=== PATIENT | male | born 1945 | race Caucasian/White ===

== ENCOUNTER → 2016-05-15 | Outpatient (CLI) | payer OTHER, MEDICARE ==
[~2016-05-15] MED LIST: ASCO500T3 PO; CALC-343 PO; CHOL200010 PO; CYAN100020 PO; GLUCTAB7 PO; HYZ/10015 PO; MAGN500C PO; MULT-506 PO; OMEG10007 PO; PRS5 PO; SIMV-151 PO; WARF5TAB90 PO
== END | disposition home or self-care (01) ==
LOC: C.PATHSPEC 17:56
PROVIDERS: ATTEND Urology
DX: C67.9 Malignant neoplasm of bladder, unspecified (principal)

== ENCOUNTER → 2016-05-18 | Outpatient (CLI) | payer OTHER, MEDICARE ==
--- NOTE | 2016-05-18 12:41 | DIAGNOSTIC IMAGING REPORT ---
TWO VIEW CHEST CLINICAL HISTORY: Cough. FINDINGS: PA and lateral chest radiographs are compared to study dated 07/07/2015 and correlated with chest CT dated 07/08/2015. The patient is status post midline sternotomy. The heart is enlarged and there is atherosclerotic calcification of the thoracic aorta. Pericardial pacing leads are noted. Chronic interstitial thickening is unchanged. The lungs and pleural spaces are clear. There is no pneumothorax. The skeletal structures are osteopenic. Degenerative change is noted throughout the thoracic spine. IMPRESSION: Cardiomegaly with no active disease in the chest. Electronically signed by: Noah Granger M.D. 05/18/2016 12:40 PM Dictated Date/Time: 05/18/2016 12:33 PM
== END | disposition home or self-care (01) ==
LOC: C.RAD 12:09
PROVIDERS: ATTEND Family Medicine
DX: R05 Cough (principal)

== ENCOUNTER → 2016-05-25 | Outpatient (CLI) | payer OTHER, MEDICARE ==
[~2016-05-25] MED LIST changes: +OPTIRAY 320 IV PRN
--- NOTE | 2016-05-25 12:06 | DIAGNOSTIC IMAGING REPORT ---
CT ABD/PELVIS COMBO CLINICAL HISTORY: Renal neoplasm. Transitional carcinoma of the bladder. COMPARISON STUDY: Outside CT scan dated 05/20/2014 TECHNIQUE: Unenhanced images were obtained through the abdomen and pelvis. The patient was then scanned in a dynamic helical fashion during intravenous administration 110 cc of Optiray 320. Portal phase and 5 minute delayed images were acquired. CT DOSE: 2273.39 mGy.cm FINDINGS: Lower chest: There is mild bibasilar atelectasis. There is a small hiatal hernia Liver: The contrast-enhanced liver is normal in size, contour, and attenuation. There is no intrahepatic biliary ductal dilatation. The hepatic veins and portal veins are patent. Gallbladder: Cholelithiasis Spleen: Normal in size and attenuation. Pancreas: Unremarkable. Adrenal glands: Unremarkable. Kidneys: There are multiple bilateral nonenhancing renal masses consistent with cysts and hyperdense cysts. The largest is a 35mm mid to upper pole left renal lesion containing rim calcification. This remain similar to the prior 2014 study. No renal calculi are visualized. There is no hydronephrosis. Bowel: There are no transition zones indicate bowel obstruction. There is no evidence of acute diverticulitis. The appendix appears normal. Peritoneum: There is no intraperitoneal free air or abdominal ascites. Vasculature: There are moderately extensive vascular calcifications present. There is no evidence of abdominal aortic aneurysm area Adenopathy: None. Pelvic viscera: There is minimal bladder wall thickening which may in part be secondary to incomplete bladder distention. No collecting system or ureteral filling defects are visualized. Skeletal structures: No destructive osseous lesions are seen. IMPRESSION: 1. Cholelithiasis 2. Multiple bilateral renal masses consistent with cysts and hyperdense cysts 3. Minor bladder wall thickening 4. No evidence of pathologic adenopathy Electronically signed by: Suman Garcia M.D. 05/25/2016 12:04 PM Dictated Date/Time: 05/25/2016 11:57 AM
== END | disposition home or self-care (01) ==
LOC: C.CTS 11:09
PROVIDERS: ATTEND Urology
DX: C67.9 Malignant neoplasm of bladder, unspecified (principal); D49.519 Neoplasm of unspecified behavior of unspecified kidney

== ENCOUNTER 2022-05-30 07:12 | Observation (INO) ==
--- NOTE | 2022-05-30 07:38 | Emergency Department Note ---
Impression & Plan Acute urinary retention, Hematuria, SAADIA (acute kidney injury) ED Provider Note NAME: KSENIA HAUSER AGE: 77 SEX: M : 1945 ARRIVES VIA: Walk-In INFORMANT: Patient, ED PROVIDER(S): Nixon Maldonado DO CHIEF COMPLAINT: Urinary retention HPI: The patient is a 77-year-old male who presented to the emergency department for an evaluation of urinary tension. The patient has had problems off and on with urinary retention and clots in his Cruz catheter. He has been in our facility twice over the last 24 hours for similar complaints. He was able to be irrigated with good urinary flow each time but returns again this morning with similar complaints. His significant other does get part of the history and states that this began after he was diagnosed with urine infection. He also had a Cruz catheter placed for urinary retention and hematuria. The patient does take a blood thinner because he has a mechanical heart valve. He is scheduled for cystoscopy next week. He denies having any fever nausea or vomiting. ROS: See above HPI for pertinent positives & negatives. A total of 10 systems reviewed and were otherwise negative. PAST MEDICAL HISTORY: See Below PAST SURGICAL HISTORY: See Below FAMILY HISTORY: See Below SOCIAL HISTORY: See Below HOME MEDICATIONS: See Below ALLERGIES: See Below VITALS: See Below PHYSICAL EXAMINATION: GENERAL: Patient is awake alert in no acute distress patient is resting comfortably and showing no signs of anxiety EYES: The conjunctivae are clear. The pupils are round and reactive. EARS, NOSE, MOUTH AND THROAT: The nose is without any evidence of any deformity. Mucous membranes are moist. Tongue is midline. NECK: The neck is nontender and supple. RESPIRATORY: Normal respiratory effort is noted there is no evidence of wheezing rhonchi or rales CARDIOVASCULAR: Regular rate and rhythm was noted to auscultation. Metallic click was noted. GASTROINTESTINAL: The abdomen is distended. There is suprapubic tenderness but no guarding or rigidity was appreciated. : Cruz catheter is in urethral meatus. There is no leaking around the catheter. Cruz bag does have hematuria. MUSCULOSKELETAL/EXTREMITIES: There is no evidence of gross deformity full range of motion is noted in the hips and shoulders. SKIN: Pedal edema was noted bilaterally. Skin was warm and dry. NEUROLOGIC: Patient is awake alert and oriented x3 MEDICAL DECISION MAKING: The patient is a 77-year-old male who presented to the emergency department for an evaluation of hematuria and clot retention. This is the third visit the patient has had [facility] over the last 24 hours. The patient was treated with irrigation of the Cruz. This did resolve the clot retention. I discussed the patient's laboratory results with him. I discussed his condition with the on-call urology group. They have agreed to evaluate the pa hugo in the emergency department. The patient was still feeling much better after reevaluation by urology. Given the patient's frequent returns to the emergency department, he was felt to be a better candidate for inpatient management as well as possible cystoscopy within the next few days. Given the patient's anticoagulant use as well as his mechanical valve I discussed his case with the [facility] hospitalist. They have agreed to evaluate the patient for further management and disposition. Triage Nursing notes reviewed. Prior medical records reviewed Vital Signs: reviewed and remarkable for no significant abnormalities Differential diagnosis: Testicular torsion, mass, infection, hernia, hydrocele, epididymitis, STI, trauma, intra-abdominal process, as well as other pathologies. ER treatment provided: See below Diagnostics interpreted by me: ECG: none Cardiac Monitoring: An order was placed for continuous cardiac monitoring. The monitor shows a rate of 69 bpm with sinus rhythm. Laboratory studies: As stated above and show below. Imaging studies: See below. Consultation(s): I discussed this condition with Nicole who [facility]. I discussed this case with Dr. Vazquez who is on-call for the hospitalist. 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 Sister Natural with unknown cause Social History Smoking Status: Former smoker Tobacco Type: Cigarettes Cigarettes Per Day: 1 PPD x 19yr; Second Hand Exposure: No; Hx Alcohol Use: No Hx Substance Use: No Preferred Language: Malawian Communication Ability: Effective Visual Impairment: No Limitations Hearing Ability: Normal Filter Tender Required: No Beliefs That Will Affect Care: None marital status: Current Living Situation: Spouse current occupational status: retired current occupation: [employer] Feels Safe at Home: Yes caffeine: Yes (2 cups/day) during the past year weight has: remained stable Allergies Allergies Allergy/AdvReac Type Severity Reaction Status Date / Time No Known Allergies Allergy Verified 05/29/22 23:00 Home Meds Home Medications Medication Instructions Recorded Confirmed cyanocobalamin (vitamin B-12) 1,000 mcg PO QAM ##0 11/10/14 05/30/22 1,000 mcg tablet multivitamin 1 tab PO QAM ##0 11/10/14 05/30/22 calcium carbonate 600 mg calcium 600 mg PO QAM 02/03/20 05/30/22 (1,500 mg) tablet (Calcium) glucosamine 750 [id number] 1 tab PO BID 02/03/20 05/30/22 no1 644 mg-C 30 mg-galindo 1 mg tablet (Osteo Bi-Flex Triple Strength) diphenhydramine 25 1 tab PO HS 07/15/21 05/30/22 mg-acetaminophen 500 mg tablet (Tylenol PM Extra Strength) losartan 100 mg tablet 100 mg PO QAM 07/15/21 05/30/22 simvastatin 20 mg tablet 20 mg PO HS 07/15/21 05/30/22 amlodipine 2.5 mg tablet 2.5 mg PO HS 08/01/21 05/30/22 docusate sodium 100 mg capsule 100 mg PO BID 01/31/22 05/30/22 (Stool Softener) cholecalciferol (vitamin D3) 125 125 mcg PO QAM 05/24/22 05/30/22 mcg (5,000 unit) tablet (Vitamin D3) hydrochlorothiazide 25 mg tablet 25 mg PO WK 05/24/22 05/30/22 magnesium oxide 500 mg tablet 500 mg PO QAM 05/24/22 05/30/22 warfarin 5 mg tablet See Rx Instructions .Route .COMPLEX 05/24/22 05/30/22 zinc gluconate 50 mg tablet 50 mg PO QAM 05/24/22 05/30/22 Previous Rx's Medication Instructions Recorded cephalexin 500 mg capsule 500 mg PO Q6H 7 days #28 caps 05/24/22 Results & Data (ED) Vital Signs Vital Signs - 24 hr 05/30/22 07:12 05/30/22 08:49 05/30/22 10:32 Temperature 36.1 C L Temperature Source Temporal Artery Scan Pulse Rate 68 Pulse Rate [Finger] 69 71 Respiratory Rate 16 20 20 Respiratory Effort / Characteristics Non-Labored Spontaneous Non-Labored Spontaneous Respiratory Depth Normal Normal Blood Pressure 117/82 Blood Pressure [Right Arm] 112/64 113/68 Blood Pressure Mean 93 Blood Pressure Mean [Right Arm] 80 83 Pulse Oximetry 96 98 98 Oxygen Delivery Method Room Air Room Air Sepsis Recent Fever Within 48 Hours No Sepsis New/Unexplained Change in Mental Status N/A Sepsis Action Taken by Nursing No Action Required 05/30/22 11:40 Temperature Temperature Source Pulse Rate Pulse Rate [Finger] 85 Respiratory Rate 20 Respiratory Effort / Characteristics Non-Labored Spontaneous Respiratory Depth Normal Blood Pressure Blood Pressure [Right Arm] 113/68 Blood Pressure Mean Blood Pressure Mean [Right Arm] 83 Pulse Oximetry 97 Oxygen Delivery Method Room Air Sepsis Recent Fever Within 48 Hours Sepsis New/Unexplained Change in Mental Status Sepsis Action Taken by Assisted Medications Current Medication List: was personally reviewed by me Laboratory Data Attestation: I reviewed the patient's lab results. 05/30/22 07:43 05/30/22 07:43 Lab Results 05/30/22 05/30/22 05/30/22 Range/Units 07:43 07:43 07:43 WBC 6.22 (4.8-10.8) K/ul RBC 3.38 L (4.70-6.10) M/uL Hgb 11.3 L (14.0-18.0) g/dl Hct 32.5 L (42.0-52.0) % MCV 96.2 (80.0-100.0) fL MCH 33.4 (25.0-34.0) pg MCHC 34.8 (32.0-36.0) g/dL RDW Std Deviation 50.7 H (36.4-46.3) fL RDW Coeff of Skye 14.4 (11.5-14.5) % Plt Count 182 (130-400) K/uL MPV 10.3 (9.4-12.4) fL Immature Gran % (Auto) 0.5 % Neut % (Auto) 69.5 % Lymph % (Auto) 11.9 % [place] % (Auto) 12.2 % Eos % (Auto) 5.3 % Baso % (Auto) 0.6 % Neut # (Auto) 4.32 (1.40-6.50) K/uL Lymph # (Auto) 0.74 L (1.2-3.4) K/uL [place] # (Auto) 0.76 H (0.11-0.59) K/uL Eos # (Auto) 0.33 (0-0.50) K/uL Baso # (Auto) 0.04 (0-0.2) K/uL Immature Gran # (Auto) 0.03 (0.01-0.20) K/uL PT 33.5 H (9.0-12.0) Seconds INR 3.4 H (0.9-1.1) APTT 47.0 H* (21.0-31.0) Seconds PTT Ratio 1.7 Sodium 137 (136-145) mmol/L Potassium 4.2 (3.5-5.1) mmol/L Chloride 107 (98-107) mmol/L Carbon Dioxide 26 (21-32) mmol/L Anion Gap 4 (3-11) BUN 25 H (6-23) mg/dl Creatinine 1.98 H (0.6-1.4) mg/dl Est Cr Clr Drug Dosing 32.6 ml/min Est GFR ( Amer) 36.2 ml/min Est GFR (Non-Af Amer) 31.2 ml/min BUN/Creatinine Ratio 12.6 (10-20) Glucose 116 H (70-99(Fasting)) mg/dl Calcium 8.5 L (8.6-10.3) mg/dl Total Bilirubin 0.7 (0.2-1.0) mg/dl AST 17 (13-39) U/L ALT 9 (7-52) U/L Alkaline Phosphatase 47 (34-104) U/L Total Protein 6.3 (6.0-8.3) gm/dl Albumin 4.1 (3.4-5.0) gm/dl Globulin 2.2 L (2.5-4.0) gm/dl Albumin/Globulin Ratio 1.9 (0.9-2) Urine Color Urine Appearance (Clear) Urine pH (4.5-7.5) Ur Specific [place] (1.000-1.030) Urine Protein (Negative) Urine Glucose (UA) (Negative) Urine Ketones (Negative) Urine Blood (Negative) Urine Nitrite (Negative) Urine Bilirubin (Negative) Urine Urobilinogen (Negative) Ur Leukocyte Esterase (Negative) Urine RBC (0-4) /hpf Urine WBC (0-5) /hpf Ur Epithelial Cells (0-5) /lpf Urine Bacteria (Negative) SARS-CoV-2, RNA, NAAT (NEGATIVE) 05/30/22 05/30/22 Range/Units 07:57 10:35 WBC (4.8-10.8) K/ul RBC (4.70-6.10) M/uL Hgb (14.0-18.0) g/dl Hct (42.0-52.0) % MCV (80.0-100.0) fL MCH (25.0-34.0) pg MCHC (32.0-36.0) g/dL RDW Std Deviation (36.4-46.3) fL RDW Coeff of Skye (11.5-14.5) % Plt Count (130-400) K/uL MPV (9.4-12.4) fL Immature Gran % (Auto) % Neut % (Auto) % Lymph % (Auto) % [place] % (Auto) % Eos % (Auto) % Baso % (Auto) % Neut # (Auto) (1.40-6.50) K/uL Lymph # (Auto) (1.2-3.4) K/uL [place] # (Auto) (0.11-0.59) K/uL Eos # (Auto) (0-0.50) K/uL Baso # (Auto) (0-0.2) K/uL Immature Gran # (Auto) (0.01-0.20) K/uL PT (9.0-12.0) Seconds INR (0.9-1.1) APTT (21.0-31.0) Seconds PTT Ratio Sodium (136-145) mmol/L Potassium (3.5-5.1) mmol/L Chloride (98-107) mmol/L Carbon Dioxide (21-32) mmol/L Anion Gap (3-11) BUN (6-23) mg/dl Creatinine (0.6-1.4) mg/dl Est Cr Clr Drug Dosing ml/min Est GFR ( Amer) ml/min Est GFR (Non-Af Amer) ml/min BUN/Creatinine Ratio (10-20) Glucose (70-99(Fasting)) mg/dl Calcium (8.6-10.3) mg/dl Total Bilirubin (0.2-1.0) mg/dl AST (13-39) U/L ALT (7-52) U/L Alkaline Phosphatase (34-104) U/L Total Protein (6.0-8.3) gm/dl Albumin (3.4-5.0) gm/dl Globulin (2.5-4.0) gm/dl Albumin/Globulin Ratio (0.9-2) Urine Color Red Urine Appearance Slightly Cloudy (Clear) Urine pH (4.5-7.5) Ur Specific [place] 1.005 (1.000-1.030) Urine Protein (Negative) Urine Glucose (UA) (Negative) Urine Ketones (Negative) Urine Blood (Negative) Urine Nitrite (Negative) Urine Bilirubin (Negative) Urine Urobilinogen (Negative) Ur Leukocyte Esterase (Negative) Urine RBC >30 H (0-4) /hpf Urine WBC 10-30 H (0-5) /hpf Ur Epithelial Cells 5-10 H (0-5) /lpf Urine Bacteria 1+ H (Negative) SARS-CoV-2, RNA, NAAT NEGATIVE (NEGATIVE) Administered Medications Discontinued Medications Sodium Chloride (Nss 1000ml) 500 mls @ 999 mls/hr IV .Q31M ONE Stop: 05/30/22 10:15 Last Infusion: 05/30/22 11:41 Dose: 0 mls/hr Documented By: Admin: 05/30/22 09:50 Dose: 999 mls/hr Documented By: CORRINA Discharge Plan Visit Data Chief Complaint: Catheter Replacement Stated Complaint: CATHETER LEAKAGE ED Provider: Nixon Maldonado Discharge Problem: Acute urinary retention, Hematuria, SAADIA (acute kidney injury) Patient Disposition: Being Evaluated by Hospitalist Forms Stand Alone Forms: My [facility] [employer] Prescriptions Prescriptions: No Action calcium carbonate [Calcium 600] 600 mg calcium (1,500 mg) tablet 600 mg PO QAM Osteo Bi-Flex Triple Strength 750 mg-644 mg- 30 mg-1 mg tablet 1 tab PO BID Rx Instructions: give with meal/snack multivitamin Tablet 1 tab PO QAM Qty: 0 cyanocobalamin (vitamin B-12) 1,000 mcg Tablet 1,000 mcg PO QAM Qty: 0 warfarin 5 mg tablet See Rx Instructions .ROUTE .COMPLEX Rx Instructions: TAKES 7.5 MG ON FRIDAYS ONLY, THEN 5 MG ALL OTHER EVENINGS. magnesium oxide 500 mg Tablet 500 mg PO QAM zinc gluconate 50 mg Tablet 50 mg PO QAM hydrochlorothiazide 25 mg tablet 25 mg PO WK Rx Instructions: Saturday cholecalciferol (vitamin D3) [Vitamin D3] 125 mcg (5,000 unit) Tablet 125 mcg PO QAM cephalexin 500 mg capsule 500 mg PO Q6H 7 Days Qty: 28 0RF Rx Instructions: STARTED 05/25/22 FOR 7 DAYS. amlodipine 2.5 mg Tablet 2.5 mg PO HS simvastatin 20 mg Tablet 20 mg PO HS diphenhydramine-acetaminophen [Tylenol PM Extra Strength] 25-500 mg Tablet 1 tab PO HS losartan 100 mg Tablet 100 mg PO QAM docusate sodium [Stool Softener] 100 mg capsule 100 mg PO BID Referrals Referrals: Joseph Dolan MD [Primary Care Provider] - Hematuria Qualifiers: Hematuria type: gross Qualified Code(s): R31.0 - Gross hematuria
[2022-05-30 08:17] LABS: Basophils # (auto) 0.04 K/uL (0-0.2); Basophils % (auto) 0.6 %; Eosinophils # (auto) 0.33 K/uL (0-0.50); Eosinophils % (auto) 5.3 %; Hematocrit (blood only) 32.5 % (42.0-52.0); Hemoglobin 11.3 g/dl (14.0-18.0); Immature Granulocytes # (auto) 0.03 K/uL (0.01-0.20); Immature Granulocytes % (auto) 0.5 %; Lymphocytes # (auto) 0.74 K/uL (1.2-3.4); Lymphocytes % (auto) 11.9 %; Mean Corpuscular Hemoglobin 33.4 pg (25.0-34.0); Mean Corpuscular Hgb Conc 34.8 g/dL (32.0-36.0); Mean Corpuscular Volume 96.2 fL (80.0-100.0); Mean Platelet Volume 10.3 fL (9.4-12.4); Monocytes # (auto) 0.76 K/uL (0.11-0.59); Monocytes % (auto) 12.2 %; Neutrophils # (auto) 4.32 K/uL (1.40-6.50); Neutrophils % (auto) 69.5 %; Platelet Count 182 K/uL (130-400); RDW Coefficient of Variation 14.4 % (11.5-14.5); RDW Standard Deviation 50.7 fL (36.4-46.3); Red Blood Count 3.38 M/uL (4.70-6.10); White Blood Count 6.22 K/ul (4.8-10.8)
[2022-05-30 08:25] LABS: Color Urine Red; Specific Gravity Urine 1.005 (1.000-1.030)
[2022-05-30 08:29] LABS: Appearance Urine Slightly Cloudy (Clear)
[2022-05-30 08:33] LABS: Albumin Globulin Ratio 1.9 (0.9-2); Albumin Level 4.1 gm/dl (3.4-5.0); BUN Creatinine Ratio 12.6 (10-20); Bilirubin,Total 0.7 mg/dl (0.2-1.0); Calcium 8.5 mg/dl (8.6-10.3); Creatinine Clr Calc Pharmacy 32.6 ml/min; Est GFR (African American) 36.2 ml/min; Est GFR (Non-African American) 31.2 ml/min; Globulin 2.2 gm/dl (2.5-4.0); Potassium 4.2 mmol/L (3.5-5.1); Total Protein 6.3 gm/dl (6.0-8.3)
[2022-05-30 08:36] LABS: Bacteria Urine 1+ (Negative); RBC Urine >30 /hpf (0-4)
[2022-05-30 09:01] LABS: INR 3.4 (0.9-1.1); Partial Thromboplastin Ratio 1.7; Prothrombin Time 33.5 Seconds (9.0-12.0)
[2022-05-30] MEDS ORDERED: SODIUM CHLORIDE 0.9% 1000ML 500 ML IV ONE (09:45)
--- NOTE | 2022-05-30 10:29 | Urology Consultation ---
Date of Consultation May 30, 2022 Assessment & Plan (1) Hematuria: (2) Acute urinary retention: (3) Malfunction of Cruz catheter: 77 yo M with PMH of bladder cancer with history of BCG and prostate cancer status post radiation who presented to the emergency department multiple times in the past 24 hours due to hematuria and presumed obstruction/malfunction of Cruz catheter. Patient is afebrile and hemodynamically stable. Labs reviewedcreatinine 1.98 (baseline ~1.6), hemoglobin 11.3, no leukocytosis. INR 3.4. UA notable for >30 RBC, 10-30 WBC, 1+ bacteria. UC 05/30 pending. UC 4/ no growth. Cruz catheter is patent and draining appropriately with pink urine at time of visit, no clots in tubing. We discussed his symptoms and Cruz malfunctions could be due to catheter obstruction from clots and/or bladder spasms. Given multiple ER presentations, very reasonable to admit overnight for further evaluation. Case discussed with ER physician and hospitalist. Plan of care reviewed with Dr. Phoenix. No acute intervention indicated today. Will continue to monitor throughout the day/overnight. Hopefully hematuria will continue to clear. Ideally we would wait until scheduled surgical intervention given his anticoagulation status. In the interim, he may need cystoscopy, possible clot evacuation and fulguration tomorrow depending on clinical course. Discussed with patient and spouse. They are understanding and agreeable to the plan, questions answered. Plan: - Recommend BRYAN now due to SAADIA, evaluate for clot retention. - Make NPO at midnight for possible cystoscopy and clot evacuation/fulguration tomorrow afternoon. - Hold Coumadin now in preparation for surgery. Heparin gtt to be initiated per hospital medicine. - Maintain Cruz catheter. - Okay to gently hand irrigate catheter as needed for suprapubic discomfort, clot retention, etc. - Continue supportive care and medical management per hospital medicine. will follow closely. Supervising Physician Co-Signing Physician Notes Discussed patient with GEORGE. Agree with plan. History of Present Illness Reason for Consultation: Hematuria, Cruz malfunction Requesting Physician: Dr. Maldonado History of Present Illness This is a 77-year-old male with past medical history of bladder cancer with history of BCG and prostate cancer status post radiation who presented to the emergency department multiple times in the past 24 hours due to hematuria and presumed obstruction/malfunction of Cruz catheter. Urology is consulted for further evaluation of hematuria/catheter malfunction. Patient is well-known to our service, has followed with Dr. Amor and recently Dr. Phoenix in clinic. He was recently seen in office on 05/28/2022 for scheduled surveillance cystoscopy. Patient reported hematuria and difficulty voiding. Cystoscopy was deferred at visit due to acute issues. A Cruz catheter was placed in office and irrigated. He is scheduled for Cystoscopy, TURBT, possible bilateral retrograde pyelograms, possible Cruz catheter placement in OR on 06/05/[address] Phoenix. Urine culture 05/28/22 showed no growth. He is on Coumadin for history of mechanical valve. Unfortunately, since his office visit he has struggled with multiple issues with Cruz catheter including large leakage around catheter and concern for decreased output into catheter/obstructed catheter, which prompted presentation to ER x 3 in the past 24 hours. Per notes, Cruz catheter was irrigated in emergency department on previous presentations with some clot return and appeared to be well positioned and functioning appropriately, so patient was discharged to home. He returned again this morning with similar complaints. Chart review: Afebrile and hemodynamically stable on arrival Labs reviewed WBC 6.22, hemoglobin 11.3, hematocrit 32.5, INR 3.4, creatinine 1.98. UA notable for >30 RBC, 10-30 WBC, 1+ bacteria; other indices uninterpreted due to color. Urine culture collected and pending. No imaging at time of visit. Patient seen and examined in the emergency department this morning. at bedside. He is awake, alert and resting in litter in no apparent distress. No abdominal, suprapubic or flank discomfort. He reports he did have some bladder pressure previously, which was associated with timing of Cruz malfunction/leaking around catheter. Cruz patent and draining pink urine, no clots noted in tubing at time of visit. He reports occasional chills, no fever. No nausea or vomiting. No additional concerns at this time. Allergies Allergy/AdvReac Type Severity Reaction Status Date / Time No Known Allergies Allergy Verified 05/29/22 23:00 Home Medications Medication Instructions Recorded Confirmed Type cyanocobalamin (vitamin B-12) 1,000 mcg PO QAM ##0 11/10/14 05/30/22 History 1,000 mcg tablet multivitamin 1 tab PO QAM ##0 11/10/14 05/30/22 History calcium carbonate 600 mg calcium 600 mg PO QAM 02/03/20 05/30/22 History (1,500 mg) tablet (Calcium) glucosamine 750 [id number] 1 tab PO BID 02/03/20 05/30/22 History no1 644 mg-C 30 mg-galindo 1 mg tablet (Osteo Bi-Flex Triple Strength) diphenhydramine 25 1 tab PO HS 07/15/21 05/30/22 History mg-acetaminophen 500 mg tablet (Tylenol PM Extra Strength) losartan 100 mg tablet 100 mg PO QAM 07/15/21 05/30/22 History simvastatin 20 mg tablet 20 mg PO HS 07/15/21 05/30/22 History amlodipine 2.5 mg tablet 2.5 mg PO HS 08/01/21 05/30/22 History docusate sodium 100 mg capsule 100 mg PO BID 01/31/22 05/30/22 History (Stool Softener) cephalexin 500 mg capsule 500 mg PO Q6H 7 days #28 caps 05/24/22 05/30/22 Rx cholecalciferol (vitamin D3) 125 125 mcg PO QAM 05/24/22 05/30/22 History mcg (5,000 unit) tablet (Vitamin D3) hydrochlorothiazide 25 mg tablet 12.5 mg PO WK 05/24/22 05/31/22 History magnesium oxide 500 mg tablet 500 mg PO QAM 05/24/22 05/30/22 History warfarin 5 mg tablet See Rx Instructions .Route .COMPLEX 05/24/22 05/30/22 History zinc gluconate 50 mg tablet 50 mg PO QAM 05/24/22 05/30/22 History spironolactone 25 mg tablet 12.5 mg PO Q2D 05/31/22 05/31/22 History Patient History Medical History (Updated 05/31/22 @ 19:49 by Sana Dawson MD) Arthritis Benign prostatic hyperplasia with urinary obstruction and other lower urinary tract symptoms Bilateral primary osteoarthritis of knee Chronic anticoagulation History of bladder surgery History of elevated PSA HTN (hypertension), benign Sialoadenitis of submandibular gland Skin cancer Basal cell per pt 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 Other Information That Helps Us Care for You: No Feels Safe at Home: Yes Safety Concerns: Feels Safe At This Time caffeine: Yes (2 cups/day) during the past year weight has: remained stable Assistive Devices: None Review of Systems Review of Systems: All systems reviewed & are unremarkable except as noted in HPI & below Physical Exam Constitutional: well developed and well nourished; no acute distress and not ill appearing Eyes: no scleral abnormality Respiratory: normal respiratory effort; no respiratory distress and no labored breathing Cardiovascular: Extremities: no pedal edema Gastrointestinal (Abdomen): Inspection/Auscultation: abdomen normal to inspection; abdomen not distended Percussion/Palpation: abdomen soft; abdomen nontender Musculoskeletal: Head/Neck/Chest: normocephalic and head atraumatic Skin: no rashes, warm and dry Neurologic: moves all extremities and awake Psychiatric: Orientation: alert and oriented x 3 Genitourinary: Cruz patent and draining pink urine, no clots noted in tubing at time of visit. Results & Data Vital Signs (Past 12 Hours) Vital Signs Temp Pulse Pulse Resp BP BP Pulse Ox 05/30/22 08:49 69 20 112/64 98 05/30/22 07:12 36.1 C L 68 16 117/82 96 O2 Del Method 05/30/22 08:49 Room Air 05/30/22 07:12 PG Care Time/CCT Total # of Minutes Spent Total Time Spent with Patient: Total time spent is greater than 50% in coordination of care (as documented) at patient's floor/unit and/or counseling patient: Coding Level of Care Code 64320 INT INP/OBS CARE MIN Diagnoses Hematuria R31.0 Hematuria type: gross Acute urinary retention R33.8 Malfunction of Cruz catheter T83.011A (1) Hematuria Hematuria type: gross Qualified Code(s): R31.0 - Gross hematuria
--- NOTE | 2022-05-30 10:59 | History & Physical Report ---
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 Cystoscopy has been delayed due to his hematuria, patient has not been able to reach outpatient cystoscopy due to recurrent ER visits for Hernandez obstruction with clot. Obstructive SAADIA, hematuria, Hernandez malfunction History of acinar adenocarcinoma of the prostate. Prior Michelle 3+3, 3+4, 4+3. Treated with Casodex and Eligard, and radiation. No history of seed implantation. Patient has not had any treatment in the last year and a half per her patient and his . Hernandez placed by urology after visit for hematuria. Patient was initially scheduled for a cystoscopy, however this was delayed due to hematuria. Since placement patient has had 3X ER visits for bladder pressure, clot, and suspected obstruction with leaking urine around the Hernandez but with minimal output into the Hernandez. History of former tobacco use, did have prior service but was stationed in [place] and has never had known toxic/agent orange exposure Creatinine baseline approximately 1.6, acutely elevated to 1.98 on admission suspect obstructive. Renal ultrasound ordered, pending at time of admission Urology consulted. Discussed with urology on admission. No procedure anticipated today, Hernandez is currently draining blood tinged urine. n.p.o. at midnight. INR 3.4 on admission in upper limit of therapeutic range goal 2.5- 3.5, warfarin held x1 and INR trended. Bladder scan every shift BMP pending Irrigate Hernandez as needed Mechanical AVR History of mechanical valve replacement, goal INR 2.53.5. INR on admission 3.4. 1 dose of warfarin held as high therapeutic range and anticipating cystoscopy with hematuria. No chest pain, chest pressure, shortness of breath, leg swelling, or orthopnea MANAGER INTERFACE Patient follows with Dr. Dolan as outpatient, no acute cardiac symptoms at time of admission History of prostate cancer As noted, hematuria and obstructive work-up as noted above Hypertension Blood pressure soft on admission, 113/68 at hospitalist assessment. We will hold losartan tomorrow morning, continue amlodipine. Hold if hypotensive Hyperlipidemia Continue simvastatin DVT prophylaxis: Anticoagulated Disposition: Medical/surgical CODE STATUS: Full code Diet: Heart healthy, n.p.o. midnight (2) Hematuria: (3) Prostate cancer: (4) H/O aortic valve replacement: History of Present Illness Primary Care Provider: Joseph Dolan MD Nakul is a 77-year-old male with a past medical history of bladder cancer, prostate cancer s/p radiation therapy, and indwelling Hernandez who presented for hematuria and Hernandez obstruction. Urology was consulted by ER who have seen patient. As patient has been seen 3 times in the ER, and has had leakage surrounding his catheter with decreased output despite recurrent attempts at catheter irrigation and outpatient follow-up patient has been recommended for inpatient management. Per chart review: History of bladder cancer and prostate cancer. Gross hematuria since 05/23/2022. - Hernandez placed at last urology f/u due to deferred cysto and obstructive sx with hematuria Talent 4+3, history of Casodex and 6 mo Eligard plus radiation therapy - Renal US pending - Urology consulted. Will keep NPO and midnight, coumadin held with temporary heparin. Vitamin K 5mg given. Patient endorses hx of hernandez placement for recurrent urinary obstruction. Hx of bladder cancer and hematuria. Is on anticoagulation 2/2 hx of mechanical heart valve. Was scheduled for a cystoscopy next week; however patient has not been able to remain stable as an outpatient. Pt is seen at bedside with his . He reports last Saturday he developed some discomfort in his bladder and noticed he had a pad with spots of blood on it. Saw Urology Saturday, but evening he had more bleeding and came to the ER for evaluation. Was tx for a UTI, given keflex, had a hernandez flushed, and was dc home without a hernandez. Saw Urology for followup on Saturday of last week. Did not think he had a UTI. Had a cystoscopy scheduled for the follwing saturday, but had continued bleeding and could not perform the cysto. Hernandez catheter was placed instead and cysto was delayed. Hernandez started leaking Saturday night and was seen in the UR Saturday. Was irrigated/flushed and many clots came out and was d/rodrigo home with the hope of making it to outpatient cysto in the following week. Last night patient continued to have leaking and came back to the ER and was flushed again and then dc home. Today patient had some hematuria, but again had leakage around the hernandez and was drinking a lot of water as directed by urine was coming out aroudn the catheter and had some mild abdominal pain with minimal outputinto catheter bag. Patient clarifies is more a strong pressure than pain. Hx of Aortic Valve replacement with [facility] [employer] mechanical AVR Hx of prostate cancer. No seed implantation. S/p radiation. Has not taken casodex in ~1.5 years. Former smoker, quit 1975. smoked for 20 years, ~0.5ppd during that time. Was in the , no agent orange or other known toxin exposure. Was only ever stationed in [place]. Pt reports takes warfarin 5mg daily except Saturday when he takes 7.5mg but is adjusted by coag clinic. Last took yesterday evening. Amlodipine takes at night. Did not take meds this AM. AM: MV, mag, zinc, calcium , VD, B12, stool softener, VC, Bi-Flex, Losartan. PM: Coumadin, simvastatin, amlodipine, VC, Gluco/Chond Allergies Allergy/AdvReac Type Severity Reaction Status Date / Time No Known Allergies Allergy Verified 05/29/22 23:00 Home Medications Medication Instructions Recorded Confirmed Type cyanocobalamin (vitamin B-12) 1,000 mcg PO QAM ##0 11/10/14 05/30/22 History 1,000 mcg tablet multivitamin 1 tab PO QAM ##0 11/10/14 05/30/22 History calcium carbonate 600 mg calcium 600 mg PO QAM 02/03/20 05/30/22 History (1,500 mg) tablet (Calcium) glucosamine 750 [id number] 1 tab PO BID 02/03/20 05/30/22 History no1 644 mg-C 30 mg-galindo 1 mg tablet (Osteo Bi-Flex Triple Strength) diphenhydramine 25 1 tab PO HS 07/15/21 05/30/22 History mg-acetaminophen 500 mg tablet (Tylenol PM Extra Strength) losartan 100 mg tablet 100 mg PO QAM 07/15/21 05/30/22 History simvastatin 20 mg tablet 20 mg PO HS 07/15/21 05/30/22 History amlodipine 2.5 mg tablet 2.5 mg PO HS 08/01/21 05/30/22 History docusate sodium 100 mg capsule 100 mg PO BID 01/31/22 05/30/22 History (Stool Softener) cephalexin 500 mg capsule 500 mg PO Q6H 7 days #28 caps 05/24/22 05/30/22 Rx cholecalciferol (vitamin D3) 125 125 mcg PO QAM 05/24/22 05/30/22 History mcg (5,000 unit) tablet (Vitamin D3) hydrochlorothiazide 25 mg tablet 25 mg PO WK 05/24/22 05/30/22 History magnesium oxide 500 mg tablet 500 mg PO QAM 05/24/22 05/30/22 History warfarin 5 mg tablet See Rx Instructions .Route .COMPLEX 05/24/22 05/30/22 History zinc gluconate 50 mg tablet 50 mg PO QAM 05/24/22 05/30/22 History Past Med/Surg History Medical History Arthritis Benign prostatic hyperplasia with urinary obstruction and other lower urinary tract symptoms Bilateral primary osteoarthritis of knee Chronic anticoagulation History of bladder surgery History of elevated PSA Sialoadenitis of submandibular gland Skin cancer Basal cell per pt 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 NAD. Cooperative. HEENT: Atraumatic, normocephalic. Vision/hearing grossly intact Pulm: CTAB A&P. -wheezes, -rales, -rhonchi. Symmetrical chest rise. No increased work of breathing. No respiratory distress. Cardiac: RRR, +sm. Radial pulses intact and symmetrical. Abdominal: Nontender, nondistended, soft. BS present. : Hernandez in place draining pink-tinged urine Extremities: Warm dry, no edema. Moving all extremities equally. Results & Data Results & Data Vital Signs (Past 12 Hours) Vital Signs Temp Pulse Pulse Resp BP BP Pulse Ox 05/30/22 10:32 71 20 113/68 98 05/30/22 08:49 69 20 112/64 98 05/30/22 07:12 36.1 C L 68 16 117/82 96 O2 Del Method 05/30/22 10:32 Room Air 05/30/22 08:49 Room Air 05/30/22 07:12 PG Care Time/CCT Total # of Minutes Spent Total Time Spent with Patient: Total time spent is greater than 50% in coordination of care (as documented) at patient's floor/unit and/or counseling patient: Coding Level of Care Code 80535 INT INP/OBS CARE 3/75MIN Diagnoses SAADIA (acute kidney injury) N17.9 Hematuria R31.0 Hematuria type: gross Prostate cancer C61 H/O aortic valve replacement Z95.2 (2) Hematuria Hematuria type: gross Qualified Code(s): R31.0 - Gross hematuria
--- NOTE | 2022-05-30 11:53 | Ultrasound Report ---
RENAL ULTRASOUND HISTORY: Acute hematuria hematuria COMPARISON: CT abdomen pelvis 03/25/2018 FINDINGS: Right kidney: 10.2 x 5.3 x 5.4 cm. No hydronephrosis. Diffuse cortical thinning with mildly increased echogenicity of the renal parenchyma. Renal cysts measure up to 2.2 cm. A few of which demonstrate s ubcentimeter marginal calcifications. There are a few calcifications within the right kidney measurin g up to 4 mm. Left kidney: 10.0 x 4.9 x 5.3 cm. No hydronephrosis. Diffuse cortical thinning with increased echogen icity of the renal parenchyma. Cysts of the left kidney measure up to 3.2 cm. No shadowing renal calc marlen identified. Bladder: Cruz catheter noted within a decompressed urinary bladder. IMPRESSION: 1. No hydronephrosis. 2. There are a few subcentimeter calcifications within the right kidney measuring up to 4-5 mm. 3. Bilateral renal cysts. 4. Decompressed urinary bladder with Cruz catheter. ACT 112: Negative or not required by law. Electronically signed by: Agustin Malone M.D. 05/30/2022 11:52 AM
[2022-05-30] MEDS ORDERED: ACETAMINOPHEN 325 MG TAB PO PRN (14:10)
[2022-05-30] MEDS: DOCUSATE SODIUM 100 MG CAP PO SCH (20:57)
[2022-05-30] MEDS: SIMVASTATIN 20 MG TAB PO SCH (20:58)
[2022-05-30] MEDS: amLODIPine BESYLATE 5 MG TAB PO SCH (20:58)
[2022-05-30] MEDS: ACETAMINOPHEN 500 MG TAB PO SCH (20:59)
[2022-05-30] MEDS: diphenhydrAMINE Capsule 25 MG CAP PO SCH (20:59)
[2022-05-30] MEDS ORDERED: ACETAMINOPHEN 500 MG TAB PO SCH (21:00)
--- NOTE | 2022-05-31 07:54 | Urology Progress Note ---
Date of Service May 31, 2022 Assessment & Plan (1) Acute urinary retention: (2) Hematuria: (3) Malfunction of Cruz catheter: Plan: 77 yo M with PMH of bladder cancer with history of BCG and prostate cancer status post radiation who presented to the emergency department multiple times due to hematuria and presumed obstruction/malfunction of Cruz catheter. - Afebrile, hemodynamically stable. - Labs - creatinine 1.72, WBC 5.01, Hgb 11.2, INR 2.9. - UC showing no growth. - Cruz catheter patent and draining light maroon this am. - Required manual irrigation x 1 overnight per patient and nursing notes. - Renal US showed no hydronephrosis, bladder decompressed with Cruz. - Keep NPO for now, will reassess later today. Patient reassessed this afternoon, Cruz draining light mercedes urine, clearer since this am. Patient reports catheter needed irrigation once since this morning. At this point, he feels uncomfortable going home. However, urine appears to be clearing throughout the day and clot evacuation does not appear to be indicated at this time. Will reevaluate in the morning. Okay to resume diet tonight, make NPO at [place]. will follow. Admission and Anticipated Discharge Date Admission Date: May 30, 2022 Supervising Physician Co-Signing Physician Notes Discussed patient with GEORGE. Agree with plan. Personally rounded on patient. Urine is dark mercedes with no persistent bleeding noted. Patient's INR remains elevated at 2.9. Explained to patient that I did not feel taking him to the OR at this time would be worthwhile as his urine is improving. Explained that I took him to the OR and found a tumor, I could not resected at this time as his INR remains elevated. The only indication for surgery today would have been to coagulate any acute bleeding. I still think the best option is to bridge him until his surgery on next Saturday where we could perform all indicated procedures. He expressed understanding but did not feel comfortable going home tonight. He can have a diet tonight and we will reassess in the morning. If hematuria returns we will take to the OR. If it continues to improve, recommended bridging and discharged home with planned surgery next Saturday. Subjective Patient awake, alert and sitting up in bed. No acute issues overnight. Catheter required manual irrigation x1. Patient reports some bladder discomfort and leakage prior to irrigation. Per nursing notes, 1 large clot was returned w ith irrigation. Currently no abdominal, suprapubic or flank discomfort. No nausea or vomiting. No fever or chills. Cruz patent and draining light maroon tinged urine. Review of Systems Constitutional: as per Subjective / HPI Gastrointestinal: as per Subjective / HPI Genitourinary: + as per Subjective / HPI Physical Exam Constitutional: well developed and well nourished; no acute distress Respiratory: normal respiratory effort; no respiratory distress and no labored breathing Gastrointestinal (Abdomen): Inspection/Auscultation: abdomen normal to inspection; abdomen not distended Percussion/Palpation: abdomen soft; abdomen nontender Musculoskeletal: Head/Neck/Chest: normocephalic and head atraumatic Skin: no rashes, warm and dry Neurologic: moves all extremities and awake Psychiatric: Orientation: alert and oriented x 3 Genitourinary: Cruz patent and draining light maroon urine, no clots noted in tubing at time of visit. Results & Data Vital Signs (Past 12 Hours) Vital Signs Temp Pulse Resp BP Pulse Ox O2 Del Method 05/30/22 21:27 36.9 C 84 18 120/72 96 Room Air PG Care Time/CCT Total # of Minutes Spent Total Time Spent with Patient: Total time spent is greater than 50% in coordination of care (as documented) at patient's floor/unit and/or counseling patient: Coding Level of Care Code 27481 SUB INP/OBS CARE /25MIN Diagnoses Acute urinary retention R33.8 Hematuria R31.0 Hematuria type: gross Malfunction of Cruz catheter T83.011A (2) Hematuria Hematuria type: gross Qualified Code(s): R31.0 - Gross hematuria
[2022-05-31 08:06] LABS: Basophils # (auto) 0.05 K/uL (0-0.2); Eosinophils # (auto) 0.37 K/uL (0-0.50); Eosinophils % (auto) 7.4 %; Hematocrit (blood only) 32.6 % (42.0-52.0); Hemoglobin 11.2 g/dl (14.0-18.0); Immature Granulocytes # (auto) 0.03 K/uL (0.01-0.20); Immature Granulocytes % (auto) 0.6 %; Lymphocytes # (auto) 0.84 K/uL (1.2-3.4); Lymphocytes % (auto) 16.8 %; Mean Corpuscular Hemoglobin 33.3 pg (25.0-34.0); Mean Corpuscular Hgb Conc 34.4 g/dL (32.0-36.0); Mean Platelet Volume 9.7 fL (9.4-12.4); Monocytes # (auto) 0.64 K/uL (0.11-0.59); Monocytes % (auto) 12.8 %; Neutrophils # (auto) 3.08 K/uL (1.40-6.50); Neutrophils % (auto) 61.4 %; Platelet Count 187 K/uL (130-400); RDW Coefficient of Variation 14.4 % (11.5-14.5); RDW Standard Deviation 51.5 fL (36.4-46.3); Red Blood Count 3.36 M/uL (4.70-6.10); White Blood Count 5.01 K/ul (4.8-10.8)
[2022-05-31] MEDS: CYANOCOBALAMIN (B-12) 500 MCG TABLET PO SCH (08:08)
[2022-05-31] MEDS: CHOLECALCIFEROL 5,000 UNITS 125 MCG TAB PO SCH (08:08)
[2022-05-31] MEDS: DOCUSATE SODIUM 100 MG CAP PO SCH ×2 (08:08→21:57)
[2022-05-31 08:27] LABS: BUN Creatinine Ratio 13.4 (10-20); C Reactive Protein 1.41 mg/dl (0-0.5); Calcium 8.5 mg/dl (8.6-10.3); Creatinine Clr Calc Pharmacy 37.4 ml/min; Est GFR (African American) 42.9 ml/min
[2022-05-31 08:31] LABS: INR 2.9 (0.9-1.1); Prothrombin Time 29.2 Seconds (9.0-12.0)
[2022-05-31] MEDS ORDERED: LACTATED RINGER'S 1,000 ML IV SCH (10:30)
[2022-05-31 14:36] VITALS: O2SAT 95
--- NOTE | 2022-05-31 15:41 | Anesthesiology Consultation ---
Date of Service May 31, 2022 Assessment & Plan (1) Encounter for pre-operative examination: Chart Review Chart Review: Acceptable Risk for Surgery History Surgery Operation Date: 05/31/22 07:00 Proposed Procedures p Cystoscopy, Possible Clot Evacuation and Fulguration - Antonio Phoenix MD Height/Weight Height: 5 ft 6 in Weight: 94.347 kg Allergies Allergy/AdvReac Type Severity Reaction Status Date / Time No Known Allergies Allergy Verified 05/29/22 23:00 Medications Home Medications Medication Instructions Recorded Confirmed Last Taken cyanocobalamin (vitamin B-12) 1,000 mcg PO QAM ##0 11/10/14 05/30/22 05/29/22 1,000 mcg tablet multivitamin 1 tab PO QAM ##0 11/10/14 05/30/22 05/29/22 calcium carbonate 600 mg calcium 600 mg PO QAM 02/03/20 05/30/22 05/29/22 (1,500 mg) tablet (Calcium) glucosamine 750 [id number] 1 tab PO BID 02/03/20 05/30/22 05/29/22 no1 644 mg-C 30 mg-galindo 1 mg tablet (Osteo Bi-Flex Triple Strength) diphenhydramine 25 1 tab PO HS 07/15/21 05/30/22 05/29/22 mg-acetaminophen 500 mg tablet (Tylenol PM Extra Strength) losartan 100 mg tablet 100 mg PO QAM 07/15/21 05/30/22 05/29/22 simvastatin 20 mg tablet 20 mg PO HS 07/15/21 05/30/22 05/29/22 amlodipine 2.5 mg tablet 2.5 mg PO HS 08/01/21 05/30/22 05/29/22 docusate sodium 100 mg capsule 100 mg PO BID 01/31/22 05/30/22 05/29/22 (Stool Softener) cephalexin 500 mg capsule 500 mg PO Q6H 7 days #28 caps 05/24/22 05/30/22 05/29/22 22:00 cholecalciferol (vitamin D3) 125 125 mcg PO QAM 05/24/22 05/30/22 05/29/22 mcg (5,000 unit) tablet (Vitamin D3) hydrochlorothiazide 25 mg tablet 25 mg PO WK 05/24/22 05/30/22 05/29/22 magnesium oxide 500 mg tablet 500 mg PO QAM 05/24/22 05/30/22 05/29/22 warfarin 5 mg tablet See Rx Instructions .Route .COMPLEX 05/24/22 05/30/22 05/29/22 22:00 5 mg zinc gluconate 50 mg tablet 50 mg PO QAM 05/24/22 05/30/22 05/29/22 Active Medications Generic Name Dose Route Start Last Admin Trade Name [place] PRN Reason Stop Dose Admin Acetaminophen 500 mg 05/30/22 21:00 05/30/22 20:59 Acetaminophen 500 Mg Tab PO 06/29/22 20:59 500 mg HS MEET Administration Amlodipine Besylate 2.5 mg 05/30/22 21:00 05/30/22 20:58 Amlodipine Besylate 5 Mg Tab PO 06/29/22 20:59 2.5 mg HS MEET Administration Cyanocobalamin 1,000 mcg 05/31/22 09:00 05/31/22 08:08 Cyanocobalamin (B-12) 500 Mcg Tablet PO 06/30/22 08:59 1,000 mcg QAM MEET Administration Diphenhydramine HCl 25 mg 05/30/22 21:00 05/30/22 20:59 Diphenhydramine Capsule 25 Mg Cap PO 06/29/22 20:59 25 mg HS MEET Administration Docusate Sodium 100 mg 05/30/22 21:00 05/31/22 08:08 Docusate Sodium 100 Mg Cap PO 06/29/22 20:59 Not Given BID MEET Lactated Ringer's 1,000 mls @ 80 mls/hr 05/31/22 10:30 05/31/22 11:33 Lr IV 06/30/22 10:29 80 mls/hr .[id number] MEET Administration Simvastatin 20 mg 05/30/22 21:00 05/30/22 20:58 Simvastatin 20 Mg Tab PO 06/29/22 20:59 20 mg HS MEET Administration Vitamin D 5,000 units 05/31/22 09:00 05/31/22 08:08 Cholecalciferol 5,000 Units 125 Mcg Tab PO 06/30/22 08:59 5,000 units QAM MEET Administration NPO Date Last Intake of Fluids: 05/31/22 Time Last Intake of Fluids: 08:10 Last Intake of Fluids Comment: sip with pills, Date Last Intake of Solids: 05/30/22 Time Last Intake of Solids: 18:00 Last Intake of Solids Comment: dinner Past Medical History Medical History Arthritis Benign prostatic hyperplasia with urinary obstruction and other lower urinary tract symptoms Bilateral primary osteoarthritis of knee Chronic anticoagulation History of bladder surgery History of elevated PSA Sialoadenitis of submandibular gland Skin cancer Basal cell per pt 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 Sister Natural with unknown cause Past Surgical History Surgical History H/O aortic valve replacement Hx of cataract surgery Bilateral Hx of cystoscopy Social History Smoking Status: Former smoker Smoking cigarettes per day: 1 PPD x 19yr Hx Alcohol Use: Yes Alcohol type: beer and hard liquor alcohol intake frequency: a few times a week Hx Substance Use: No Physical Exam Vital Signs Last Vital Signs Temp 36.8 C 05/31/22 14:34 Pulse 74 05/31/22 14:34 Resp 16 05/31/22 14:34 BP 133/79 05/31/22 14:34 Pulse Ox 95 05/31/22 14:34 O2 Del Method Room Air 05/31/22 14:34 Testing Laboratory Results 05/31/22 07:47 05/31/22 07:47 PT 29.2 Seconds (9.0-12.0) H 05/31/22 07:47 INR 2.9 (0.9-1.1) H 05/31/22 07:47 APTT 47.0 Seconds (21.0-31.0) H* 05/30/22 07:43 Urine Color Red 05/30/22 07:57 Urine Appearance Slightly Cloudy (Clear) 05/30/22 07:57 Urine pH (4.5-7.5) 05/30/22 07:57 Ur Specific [place] 1.005 (1.000-1.030) 05/30/22 07:57 Urine Protein (Negative) 05/30/22 07:57 Urine Glucose (UA) (Negative) 05/30/22 07:57 Urine Ketones (Negative) 05/30/22 07:57 Urine Nitrite (Negative) 05/30/22 07:57 Ur Leukocyte Esterase (Negative) 05/30/22 07:57 Urine RBC >30 /hpf (0-4) H 05/30/22 07:57 Urine WBC 10-30 /hpf (0-5) H 05/30/22 07:57 Ur Epithelial Cells 5-10 /lpf (0-5) H 05/30/22 07:57 05/30/22 07:57 Urine Culture - Preliminary Urine,Straight Cath No growth - Less than 1,000 colonies/mL, Final report to follow.
--- NOTE | 2022-05-31 19:39 | Hospitalist Progress Note ---
Date of Service May 31, 2022 Assessment & Plan (1) Hematuria: Plan: Nakul is a 77-year-old male with a past medical history of hypertension, mechanical aortic valve replacement, hyperlipidemia, and both bladder and prostate CA s/p chemo and radiation therapy who presents for recurrent hematuria with 3x Cruz obstructions and SAADIA. Cystoscopy has been delayed due to his hematuria. Obstructive SAADIA, hematuria, Cruz malfunction History of acinar adenocarcinoma of the prostate. Prior Michelle 3+3, 3+4, 4+3. Treated with Casodex and Eligard, and radiation. No history of seed implantation. Patient has not had any treatment in the last year and a half per her patient and his . Also with a h/o bladder CA Cruz placed by urology after visit for hematuria. Patient was initially scheduled for a cystoscopy, however this was delayed due to hematuria. Since placement patient has had 3X ER visits for bladder pressure, clot, and suspected obstruction with leaking urine around the Cruz but with minimal output into the Cruz. -hematuria is clearing up -no evidence of infection on UA and multiple Ur cxs recently -Appreciate Urology consult-no plan for cystoscopy inpatient unless starts having bleeding again--> make NPO again after midnight in case of urgent need for cystoscopy tomorrow -otherwise, plan to hold coumadin, bridge anticoag through the weekend, and do outpt cystoscopy on Saturday as an outpt so able to do bladder biopsy if necessary if has bladder mass (once INR normalized) -follow CBC in AM-stable today -irrigate Cruz as needed (2) SAADIA (acute kidney injury): Plan: Creatinine baseline approximately 1.6, acutely elevated to 1.98 on admission suspect obstructive. Implementation Lead now improve to 1.7 -give 1 L LR Renal ultrasound no hydro, shows med renal dz -discussed CKD stage 3 diagnosis with pt and -they were unaware -Avoid nephrotoxins -renally dose meds when appropriate -follow BMP -ok to restart home aldactone 3x/week, HCTZ on Sat, and losartan (3) H/O aortic valve replacement: Plan: Mechanical AVR History of mechanical valve replacement, goal INR 2.53.5. INR on admission 3.4 and now down to 2.[address] Dolan as outpatient, no acute cardiac symptoms at time of admission -holding coumadin for upcoming cystoscopy -discussed bridging Lovenox plans with [facility] telephone appointment clerk who will obtain plan from the [facility] for me (4) HTN (hypertension), benign: Plan: Blood pressure soft on admission, now normal -restart losartan tomorrow morning, continue amlodipine (5) Hyperlipidemia: Plan: Continue simvastatin (6) Prostate cancer: Plan: History of prostate cancer As noted, hematuria and obstructive work-up as noted above Plan Dispo-continued stay, possible dc to home tomorrow if no further hematuria Admission and Anticipated Discharge Date Admission Date: May 30, 2022 Subjective Pt had clearing of his hematuria earlier in the day. When I saw him the urine in the evening in the Cruz bag was brown in color. Denies CP, SOB, abd pains. at bedside. Reviewed plan. Discussed care with Urology on phone Physical Exam Constitutional: WD/WN, vitals as above Respiratory: normal respiratory effort, lungs clear to auscultation Cardiovascular: Rate/Rhythm: regular rate and regular rhythm Heart Sounds: + click Extremities: + edema (trace ankle edema) Gastrointestinal (Abdomen): normal bowel sounds, soft, nontender, no hepatosplenomegaly Genitourinary: Cruz bag with brown urine Results & Data Results & Data Vital Signs (Past 12 Hours) Vital Signs Temp Pulse Resp BP Pulse Ox O2 Del Method 05/31/22 14:34 36.8 C 74 16 133/79 95 Room Air 05/31/22 07:50 36.8 C 62 16 125/74 94 Room Air Laboratory Results CBC, BMP, INR reviewed PG Care Time/CCT Total # of Minutes Spent Total Time Spent with Patient: Total time spent is greater than 50% in coordination of care (as documented) at patient's floor/unit and/or counseling patient: Coding Level of Care Code 19481 SUB INP/OBS CARE 3/50MIN Diagnoses Hematuria R31.0 Hematuria type: gross SAADIA (acute kidney injury) N17.9 H/O aortic valve replacement Z95.2 HTN (hypertension), benign I10 Hyperlipidemia E78.5 Prostate cancer C61 (1) Hematuria Hematuria type: gross Qualified Code(s): R31.0 - Gross hematuria
[2022-05-31 20:26] VITALS: PULSE 71
[2022-05-31] MEDS: diphenhydrAMINE Capsule 25 MG CAP PO SCH (21:56)
[2022-05-31] MEDS: amLODIPine BESYLATE 5 MG TAB PO SCH (21:56)
[2022-05-31] MEDS: ACETAMINOPHEN 500 MG TAB PO SCH (21:56)
[2022-05-31] MEDS: SIMVASTATIN 20 MG TAB PO SCH (21:57)
[2022-06-01 06:39] LABS: Basophils # (auto) 0.05 K/uL (0-0.2); Basophils % (auto) 0.8 %; Eosinophils # (auto) 0.46 K/uL (0-0.50); Eosinophils % (auto) 7.8 %; Hematocrit (blood only) 32.5 % (42.0-52.0); Hemoglobin 11.2 g/dl (14.0-18.0); Immature Granulocytes # (auto) 0.03 K/uL (0.01-0.20); Immature Granulocytes % (auto) 0.5 %; Lymphocytes # (auto) 0.77 K/uL (1.2-3.4); Lymphocytes % (auto) 13.1 %; Mean Corpuscular Hemoglobin 33.2 pg (25.0-34.0); Mean Corpuscular Hgb Conc 34.5 g/dL (32.0-36.0); Mean Corpuscular Volume 96.4 fL (80.0-100.0); Mean Platelet Volume 9.4 fL (9.4-12.4); Monocytes # (auto) 0.58 K/uL (0.11-0.59); Monocytes % (auto) 9.8 %; Neutrophils # (auto) 4.01 K/uL (1.40-6.50); Platelet Count 187 K/uL (130-400); RDW Coefficient of Variation 14.3 % (11.5-14.5); RDW Standard Deviation 50.2 fL (36.4-46.3); Red Blood Count 3.37 M/uL (4.70-6.10)
[2022-06-01 06:58] LABS: BUN Creatinine Ratio 16.4 (10-20); Calcium 8.6 mg/dl (8.6-10.3); Est GFR (African American) 45.1 ml/min; Est GFR (Non-African American) 38.9 ml/min; Potassium 3.9 mmol/L (3.5-5.1)
[2022-06-01 07:08] LABS: INR 1.9 (0.9-1.1)
[2022-06-01 07:56] VITALS: BP 131/74; TEMP 98.2
--- NOTE | 2022-06-01 08:43 | Urology Progress Note ---
Date of Service June 01, 2022 Assessment & Plan (1) Hematuria: (2) Acute urinary retention: Plan: 77 yo M with PMH of bladder cancer with history of BCG and prostate cancer status post radiation admitted for hematuria and presumed obstruction/malfunction of Cruz catheter. - Afebrile, hemodynamically stable. - Labs reviewed - creatinine trending down (1.65), Hgb stable, no leukocytosis. - Urine remains a light to medium mercedes this am, no clots. - No issues with catheter overnight or this morning. - No acute intervention indicated today. - Okay to have diet and discharge to home from urology standpoint. - Recommend home with Cruz catheter. - Continue with plan for surgery on Saturday as scheduled. - INR 1.9 today. Will need to bridge patient for upcoming procedure - appreciate assistance from hospital medicine. - Expected clinical course reviewed, all questions answered. Admission and Anticipated Discharge Date Admission Date: May 30, 2022 Supervising Physician Co-Signing Physician Notes Discussed patient with GEORGE. Agree with plan. Subjective Patient seen and examined at bedside this morning. No issues overnight. Catheter did not require manual irrigation. Cruz patent and draining medium mercedes urine this morning. He denies pain. No nausea or vomiting. No fever or chills. Review of Systems Constitutional: as per Subjective / HPI Gastrointestinal: as per Subjective / HPI Genitourinary: + as per Subjective / HPI Physical Exam Constitutional: well developed and well nourished; no acute distress Respiratory: normal respiratory effort; no respiratory distress and no labored breathing Gastrointestinal (Abdomen): Inspection/Auscultation: abdomen normal to inspection; abdomen not distended Musculoskeletal: Head/Neck/Chest: normocephalic and head atraumatic Neurologic: moves all extremities and awake Psychiatric: Orientation: alert and oriented x 3 Genitourinary: Cruz patent and draining mercedes urine, no clots noted in tubing at time of visi t. Results & Data Vital Signs (Past 12 Hours) Vital Signs Temp Pulse Resp BP Pulse Ox O2 Del Method 06/01/22 07:54 36.8 C 71 16 131/74 95 Room Air PG Care Time/CCT Total # of Minutes Spent Total Time Spent with Patient: Total time spent is greater than 50% in coordination of care (as documented) at patient's floor/unit and/or counseling patient: Coding Level of Care Code 83374 SUB INP/OBS CARE 03/14MIN Diagnoses Hematuria R31.0 Hematuria type: gross Acute urinary retention R33.8 (1) Hematuria Hematuria type: gross Qualified Code(s): R31.0 - Gross hematuria
[2022-06-01] MEDS ORDERED: SPIRONOLACTONE 12.5 MG TAB PO SCH (09:00)
[2022-06-01] MEDS ORDERED: LOSARTAN POTASSIUM 50 MG TAB PO SCH (09:00)
[2022-06-01] MEDS ORDERED: MAGNESIUM OXIDE 400 MG TAB PO SCH (09:00)
[2022-06-01] MEDS ORDERED: hydroCHLOROthiazide 25 MG TAB PO SCH (09:00)
[2022-06-01] MEDS ORDERED: NON-FORMULARY MEDICATION (Zinc Gluconate 50 mg Tablet) PO SCH (09:00)
[2022-06-01] MEDS: CHOLECALCIFEROL 5,000 UNITS 125 MCG TAB PO SCH (09:01)
[2022-06-01] MEDS: CYANOCOBALAMIN (B-12) 500 MCG TABLET PO SCH (09:01)
[2022-06-01] MEDS: DOCUSATE SODIUM 100 MG CAP PO SCH (09:02)
--- NOTE | 2022-06-01 13:57 | Discharge Summary ---
Date of Service June 01, 2022 Admission HPI Per Admitting Provider Nakul is a 77-year-old male with a past medical history of bladder cancer, prostate cancer s/p radiation therapy, and indwelling Hernandez who presented for hematuria and Hernandez obstruction. Urology was consulted by ER who have seen patient. As patient has been seen 3 times in the ER, and has had leakage surrounding his catheter with decreased output despite recurrent attempts at catheter irrigation and outpatient follow-up patient has been recommended for inpatient management. Per chart review: History of bladder cancer and prostate cancer. Gross hematuria since 05/23/2022. - Hernandez placed at last urology f/u due to deferred cysto and obstructive sx with hematuria [place] 4+3, history of Casodex and 6 mo Eligard plus radiation therapy - Renal US pending - Urology consulted. Will keep NPO and midnight, coumadin held with temporary heparin. Vitamin K 5mg given. Patient endorses hx of hernandez placement for recurrent urinary obstruction. Hx of bladder cancer and hematuria. Is on anticoagulation 2/2 hx of mechanical heart valve. Was scheduled for a cystoscopy next week; however patient has not been able to remain stable as an outpatient. Pt is seen at bedside with his . He reports last Saturday he developed some discomfort in his bladder and noticed he had a pad with spots of blood on it. Saw Urology Saturday, but evening he had more bleeding and came to the ER for evaluation. Was tx for a UTI, given keflex, had a hernandez flushed, and was dc home without a hernandez. Saw Urology for followup on Saturday of last week. Did not think he had a UTI. Had a cystoscopy scheduled for the follwing saturday, but had continued bleeding and could not perform the cysto. Hernandez catheter was placed instead and cysto was delayed. Hernandez started leaking Saturday night and was seen in the UR Saturday. Was irrigated/flushed and many clots came out and was d/rodrigo home with the hope of making it to outpatient cysto in the following week. Last night patient continued to have leaking and came back to the ER and was flushed again and then dc home. Today patient had some hematuria, but again had leakage around the hernandez and was drinking a lot of water as directed by urine was coming out aroudn the catheter and had some mild abdominal pain with minimal outputinto catheter bag. Patient clarifies is more a strong pressure than pain. Hx of Aortic Valve replacement with [employer] mechanical AVR Hx of prostate cancer. No seed implantation. S/p radiation. Has not taken casodex in ~1.5 years. Former smoker, quit 1975. smoked for 20 years, ~0.5ppd during that time. Was in the , no agent orange or other known toxin exposure. Was only ever stationed in [place]. Pt reports takes warfarin 5mg daily except Saturday when he takes 7.5mg but is adjusted by coag clinic. Last took yesterday evening. Amlodipine takes at night. Did not take meds this AM. AM: MV, mag, zinc, calcium , VD, B12, stool softener, VC, Bi-Flex, Losartan. PM: Coumadin, simvastatin, amlodipine, VC, Gluco/Chond Principal Diagnosis SAADIA, Hematuria Discharge Exam Constitutional WD/WN, vitals as above Respiratory normal respiratory effort, lungs clear to auscultation Cardiovascular Rate/Rhythm: regular rate and regular rhythm Heart Sounds: + click Extremities: + edema (trace ankle edema) Gastrointestinal (Abdomen) normal bowel sounds, soft, nontender, no hepatosplenomegaly Genitourinary Hernandez with dark mercedes colored urine, no red blood Discharge Data Allergies Allergy/AdvReac Type Severity Reaction Status Date / Time No Known Allergies Allergy Verified 05/29/22 23:00 Consultations 05/30/22 10:19 Consult Urology Routine 05/30/22 10:50 ED Decision to Admit Stat Procedures Performed Operation Date: 05/31/22 07:00 <No data on this case meets the specified criteria> Ordered Studies 05/30/22 10:19 US renal/blad retro comp Stat Hospital Course (1) Hematuria: Nakul is a 77-year-old male with a past medical history of hypertension, mechanical aortic valve replacement, hyperlipidemia, and both bladder and prostate CA s/p chemo and radiation therapy who presents for recurrent hematuria with 3x Hernandez obstructions and SAADIA. Cystoscopy has been delayed due to his hematuria. Obstructive SAADIA, hematuria, Hernandez malfunction History of acinar adenocarcinoma of the prostate. Prior Michelle 3+3, 3+4, 4+3. Treated with Casodex and Eligard, and radiation. No history of seed i mplantation. Patient has not had any treatment in the last year and a half per her patient and his . Also with a h/o bladder CA Hernandez placed by urology after visit for hematuria. Patient was initially scheduled for a cystoscopy, however this was delayed due to hematuria. Since placement patient has had 3X ER visits for bladder pressure, clot, and suspected obstruction with leaking urine around the Hernandez but with minimal output into the Hernandez. -hematuria is now resolved, with mercedes colored urine in bag on discharge and cleared by Urology for discharge -no evidence of infection on UA and multiple Ur cxs recently -Appreciate Urology consult-no plan for cystoscopy inpatient unless starts having bleeding again-->plan for outpt cystoscopy and possible biopsy on 06/05 - plan to hold coumadin, bridge anticoag through the weekend with Lovenox as per Coumadin CLinic instructions given to patient and do outpt cystoscopy on Saturday so able to do bladder biopsy if necessary if has bladder mass (once INR normalized) -CBC remains stable -irrigate Hernandez as needed at home, provided leg bag and Hernandez care instructions by nursing (2) SAADIA (acute kidney injury): Creatinine baseline approximately 1.6, acutely elevated to 1.98 on admission suspect obstructive. [employer] now improve to 1.6 after Hernandez irrigated and 1L LR given Renal ultrasound no hydro, shows med renal dz -discussed CKD stage 3 diagnosis with pt and -they were unaware -Avoid nephrotoxins -renally dose meds when appropriate -follow BMP as outpt -resumed home aldactone 3x/week, HCTZ on Sat, and losartan (3) H/O aortic valve replacement: Mechanical AVR History of mechanical valve replacement, goal INR 2.53.5. INR on admission 3.4 and now down to 2.[address] Dolan as outpatient, no acute cardiac symptoms at time of admission -holding coumadin for upcoming cystoscopy -discussed bridging Lovenox plans with [facility] who kindly obtained a copy of the plan from the [facility]madin [facility] for me (4) HTN (hypertension), benign: Blood pressure soft on admission, now normal -continue home losartan, amlodipine, aldactone (5) Hyperlipidemia: Continue simvastatin (6) Prostate cancer: History of prostate cancer As noted, hematuria and obstructive work-up as noted above Plan Dispo-dc to home today Total Time Total Time Spent Total Time Spent (In Minutes): 35 min Total Time Includes: Examination of the Patient, Discharge Planning, Medication Reconciliation and Communication With Other Providers (Urology, Cardiology) Discharge Plan Discharge Items Patient Disposition: Home - Self-Care Reason For Visit: SAADIA, HEMATURIA Discharge Diagnosis: Hematuria, Acute kidney injury Condition on Discharge: Good Activity: Resume your previous activity Non-emergency contact: Primary Care Provider and Surgeon Call non-emergency contact if: you have any medication questions and your symptoms worsen Follow-up/Referrals: Joseph Dolan MD [Primary Care Provider] - Antonio Phoenix MD [Physician] - (PATIENT HAS SURGERY SCHEDULED FOR 06/05/[address] PHOENIX.) Diet: Heart Healthy Addtl Attending Provider Instructions: You were admitted with blood in your urine which has now stopped. Please monitor for recurrence of bleeding in your Hernandez catheter bag. Your Coumadin is on HOLD and you will begin using Lovenox injections as directed on your instructions from the Coumadin Clinic. The Coumadin Clinic already called the Lovenox into your pharmacy for you. Follow up with the Urologist on 06/05 as planned for your procedure. If you have any leakage of urine around the catheter or recurrent bleeding, please call the Urology office first. If you can't get a hold of the Urologist over the weekend, please return to the ER. Pending Studies at Discharge: No Stand-Alone Forms: [facility], Smoking Cessation Medications and DC Order Prescriptions: Continued calcium carbonate [Calcium 600] 600 mg calcium (1,500 mg) tablet 600 mg PO QAM Osteo Bi-Flex Triple Strength 750 mg-644 mg- 30 mg-1 mg tablet 1 tab PO BID Rx Instructions: give with meal/snack multivitamin Tablet 1 tab PO QAM Qty: 0 cyanocobalamin (vitamin B-12) 1,000 mcg Tablet 1,000 mcg PO QAM Qty: 0 warfarin 5 mg tablet See Rx Instructions .ROUTE .COMPLEX Rx Instructions: TAKES 7.5 MG ON FRIDAYS ONLY, THEN 5 MG ALL OTHER EVENINGS. magnesium oxide 500 mg Tablet 500 mg PO QAM zinc gluconate 50 mg Tablet 50 mg PO QAM hydrochlorothiazide 25 mg tablet 12.5 mg PO WK Rx Instructions: Saturday cholecalciferol (vitamin D3) [Vitamin D3] 125 mcg (5,000 unit) Tablet 125 mcg PO QAM spironolactone 25 mg tablet 12.5 mg PO Q2D Rx Instructions: Takes on Sat amlodipine 2.5 mg Tablet 2.5 mg PO HS simvastatin 20 mg Tablet 20 mg PO HS diphenhydramine-acetaminophen [Tylenol PM Extra Strength] 25-500 mg Tablet 1 tab PO HS losartan 100 mg Tablet 100 mg PO QAM docusate sodium [Stool Softener] 100 mg capsule 100 mg PO BID Discontinued cephalexin 500 mg capsule 500 mg PO Q6H 7 Days Qty: 28 0RF Rx Instructions: STARTED 05/25/22 FOR 7 DAYS. Discharge Orders: Discharge Order (Routine); Ordered 06/01/22 Ordered By: Sana Dawson Admission Data Admit Date/Time: 05/30/22 11:34 Attending Provider: Sana Dawson Admit Provider: Ajay Marie Primary Care Provider: Joseph Dolan Other Providers: Antonio Phoenix ; Ajay Marie Coding Level of Care Code 24812 INP/OBS DISCH >30 MIN Diagnoses Hematuria R31.0 Hematuria type: gross SAADIA (acute kidney injury) N17.9 H/O aortic valve replacement Z95.2 HTN (hypertension), benign I10 Hyperlipidemia E78.5 Prostate cancer C61
== END 2022-06-01 14:53 | disposition home or self-care (01) ==
LOC: EDINP 07:12 → ED 07:12 → SUATTDRO 11:34 → 3W 14:09

== ENCOUNTER 2023-08-04 06:15 | Observation (INO) ==
--- OUTSIDE RECORDS SUMMARY | 2023-08-04 06:22 | External Medical Summary | Summary of Care ---
Author Name Unknown Organization [facility] Address [address] [facility] [place] [address] Phone [phone] Care Team Providers Care Nat Instructor Name Role Phone Unavailable Primary Care Provider Unavailabl e Reason for Visit * Reason Comments Dosage Adjustment Via Phone (anticoag Cl inic) Encounter Details Date Type Department Care Team (Latest Contact Info) Description 07/24/2023 6:15 AM EDT Anticoagulation [facility], [facility] [address] [place] [address] [place] [address] [place] [id number] [address] [facility] [place] [id number] 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* Allergies No known active allergiesdocumented as of this encounter (statuses as of 07/24/2023) Medications Medication Sig Dispensed Refills Start Date End Date Status MULTIVITAMINS PO CAPS daily 0 12/11/2007 Active OSTEO BI-FLEX ADV TRIPLE ST PO TABS Take by mouth 2 times a day. Active VITAMIN D 1000 UNITS PO CAPS 1 tab daily Active Simvastatin 20 MG Oral Tablet (Zocor)Indications :Dyslipidemia, goal LDL below 70 TAKE 1 TABLET BY MOUTH EVERYDAY AT BEDTIME 90 Tablet 3 08/01/2022 Active Amoxicillin 500 MG Oral Capsule (Amoxil) TAKE 4 CAPSULES BY MOUTH 1 HOUR PRIOR TO APPOINTMENT 07/10/2022 Active Calcium-Magnesium- Zinc 333-133-5 MG Oral Tablet Take by mouth every evening. Active B-12 1000 MCG Oral Capsule Take 1 Capsule by mouth in the morning. Active Docusate Sodium 100 MG Oral Capsule Take 1 Capsule by mouth every evening. Active Glucosamine Chondr 500 Complex Oral Capsule Take 1 Capsule by mouth every evening. Active Tylenol PM Extra Strength 500-25 MG Oral Tablet (diphenhydrAMINE-A PAP (sleep)) Take 1 Tablet by mouth at bedtime. Active amLODIPine Besylate 2.5 MG Oral Tablet (Norvasc)Indicatio ns:HTN, goal below 140/90 TAKE 1 TABLET BY MOUTH EVERY DAY IN THE EVENING 90 Tablet 3 02/22/2023 Active Losartan Potassium 100 MG Oral Tablet (Cozaar)Indication s:First degree AV block,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,HTN, goal below 140/90 TAKE 1 TABLET BY MOUTH EVERY DAY 90 Tablet 3 02/25/2023 Active hydroCHLOROthiazid e 25 MG Oral Tablet (Hydrodiuril)Indic ations: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 TAKE 1 TABLET BY MOUTH 3 TIMES PER WEEK 40 Tablet 3 02/26/2023 Active Additional Information Patient taking differently: 25 mg Oral QWEEK, TAKE 1 TABLET BY MOUTH 3 TIMES PER WEEK, Reported on 04/26/2023 Spironolactone 25 MG Oral Tablet (Aldactone)Indicat ions:HTN, goal below 140/90 TAKE 1/2 TABLET BY MOUTH THREE DAYS PER WEEK. 25 Tablet 3 05/27/2023 Active Warfarin Sodium 5 MG Oral Tablet (Coumadin)Indicati ons: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,penitentiary current use of anticoagulant therapy TAKE 7.5MG ON SATURDAY THEN 5MG ALL OTHER DAYS OF WEEK OR DIRECTED BY ANTICOAGULATION PHARMACIST 102 Tablet 3 06/19/2023 Active documented as of this encounter (statuses as of 07/24/2023) Active Problems Problem Noted Date Diagnosed Date Hx of actinic keratosis 07/16/2018 Syncope 07/10/2015 First degree AV block 07/10/2015 Personal history of malignant neoplasm of skin 0 09/04/2010 Overview: BCC L chest 02/2021, BCC L glabella 03/2020, and R upper arm 02/2020, BCC R upper lateral arm, R amish 02/2013, possible BCC chest - unknown year (Lindy) Dyslipidemia, goal LDL below 70 05/31/2010 BMI 35-39 ISOLATED (SEE ACTUAL BMI) 08/01/2009 Overview: Per Obesity Protocol, #19 penitentiary current use of anticoagulant therapy 1 04/04/2002 Overview: ICD-10 update of inactive term 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 08/27/2001 Overview: [facility] Anticoagulation management encounter 08/27/2001 documented as of this encounter (statuses as of 07/24/2023) Immunizations Name Administration Dates Next Due COVID-19 mRNA, LNP-s, No Pre serve, 2-Dose Series (Moderna) 04/21/2020,03/26/2020 Seasonal Influenza, Split, IIV3, With Preserve, Inj 11/15/2008,12/16/2006 documented as of this encounter Social History Tobacco Use Types Packs/Day Years Used Date Smoking Tobacco: Former Cigarettes Q uit: 1975 Smokeless Tobacco: Never Alcohol Use Standard Drinks/Week Comments Yes 0 (1 standard drink = 0.6 oz pur e alcohol) 2-3 drinks/week Sex and Gender Information Value Date Recorded Sex Assigned at Not on file Gender Identity Not on file Sexual Orientation Not on file Job Start Date Occupation Industry Not on file Not on file Not on file documented as of this encounter Progress Notes * Frederick Cordero CPhT - 07/24/2023 9:34 AM EDT Contacts Type Contact Phone/Fax 07/24/2023 09:32 AM EDT Phone (Outgoing) Nakul Bradford (Self) [phone] (M) Spoke to Patient Subjective Patient Findings Negatives: Signs/symptoms of thrombosis, Signs/symptoms of bleeding, Change in health, Change in alcohol use, Change in activity, Upcoming invasive procedure, Missed doses, Extra doses, Change in medications, Change in diet/appetite, Bruising Advised patient to contact Anticoagulation Clinic if any unusual bruising or bleeding, recent illness, changes in medication, or questions/concerns. PT/INR results, Coumadin dose instructions, and next PT/INR date communicated as noted by Pharmacist: Yes Frederick Cordero CPhT 07/24/2023, 9:34 AM * Temi Chand RPh - 07/24/2023 8:38 AM EDT Coumadin Clinic (region specific) Objective Current Warfarin Dose As of 07/24/2023 Warfarin maintenance plan: 5 mg (5 mg x 1) every day INR Result As of 07/24/2023 INR goal: 2.5-3.5 INR used for dosin.2 (07/23/2023) Assessment & Plan Warfarin Plan As of 07/24/2023 Full warfarin instructions: 5 mg every day No change documented: Temi Chand tiara Next INR check: 08/13/2023 Repeat PT/INR in 3 week(s) Weekly dose: not changed Additional Dosing Information: Description Siria Soto to contact patient with dose instructions as noted. Temi Chand RPh 07/24/2023, 8:38 AM documented in this encounter Plan of Treatment Upcoming Encounters Date Type Department Care Team (Late st Contact Info) Description 07/30/2023 1:30 PM EDT Cardiac Studies [facility] [address] [facility] [address] 11/07/2023 11:00 AM EDT Office Visit Cardiology, [facility] [address] [facility] [place] [address] Evonne Alvarado CRNP [address] [facility] [place] [id number] 08/17/2024 8:15 AM EDT Office Visit Dermatology [facility] [place] [address] [place] [address] Jose L Bell MD [address] [place] [address] Scheduled Procedures Name Priority Associated Diagnoses Date/Ti me COLONOSCOPY FLEXIBLE PROXIMAL DIAGNOSTIC Recall History of colon polyps Health Maintenance Due Date Last Done Comments Depression Screening 1957 DTaP,Tdap,and Td Vaccines (1 - Tdap) 1962 Zoster Vaccines (3 of 3) 01/09/2019 11/14/2018, 05/2009 COVID-19 Vaccine (5 - 2022- season) 2022 09/24/2022, 11/10/2021, 04/21/2020, Additional history exists Influenza Vaccine (FLU shot) (Season Ended) 2023 11/30/2018, 11/15/2008, 12/16/2006 Colonoscopy 05/25/2025 05/25/2020, 08/2020, 09/28/2014, Additional history exists RETIRED - COLONOSCOPY-EVERY 5 YRS AGES 18-100 Discontinued 05/25/2020, 05/25/2020, 09/28/2014, Additional history exists Pneumococcal Vaccine: 65+ Years Completed 01/08/2023, 10/11/2019, 10/20/2015 GARDASIL-HPV IMMUNIZATION SERIES Aged Out No longer eligible based on patient's age to complete this topic Hepatitis B Aged Out No longer eligi ble based on patient's age to complete this topic MENINGOCOCCAL (MENACTRA/MENVEO) Aged Out No longer eligible based on patient's age to complete this topic documented as of this encounter Medical Devices Implanted Type Area Bonding Equipment Operator Device Identifier Shelf Expiration Date Model / Serial / Lot Lens Intraoc 20.5 - [id number] - [id number] Implanted:Qty: 1 on 03/19/2019 by Jean Villanueva MD at OR [facility] Left: Eye [employer] 10/19/2023 [id number] / [id number] / Lens Intraoc 21.0 - [id number] - [id number] Implanted:Qty: 1 on 03/31/2019 by Jean Villanueva MD at OR [facility] Right: Eye [employer] 09/18/2023 [id number] / [id number] / [id number] Clip Quick 2.8mm 230cm - [id number] Implanted:Qty: 1 on 05/25/2020 by Keith Olivia MD at ENDOSCOPY [facility] [employer] 08/17/2022 [id number] / documented as of this encounter Visit Diagnoses Diagnosis 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- Primary Heart valve replaced by other means documented in this encounter
--- OUTSIDE RECORDS SUMMARY | 2023-08-04 06:22 | External Medical Summary | Continuity of Care Document ---
Author Name Unknown Organization [address] Address [address] [place] [address] RAMY ASHDOWN, [place] [id number] Care Team Providers Care Diorama Model Maker Name Role Phone Deon Mendez Primary Care Physician [phone] [facility]counter [facility] [id number] Date(s): 07/26/23 - 07/26/[address] [place] [address], [facility] [address] [phone] Encounter Diagnosis Bilateral primary osteoarthritis of knee(Discharge Diagnosis) - 07/26/23 Balance problem(Discharge Diagnosis) - 07/26/23 Discharge Disposition: Home or Self Care Attending Physician: MD Mendez Jesse Referring Physician: MD Mendez Jesse Allergies, Adverse Reactions, Alerts No Known Allergies Immunizations Given and Recorded Vaccine Date Status Refusal Reason SARS COVID Vaccine Unspecified 09/24/22 Recorded SARS COVID Vaccine Unspecified 11/10/21 Recorded SARS-CoV-2 (COVID-19) mRNA-1273 vaccine 1 10/04/20 Recorded SARS-CoV-2 (COVID-19) mRNA-1273 vaccine 2 04/21/20 Recorded SARS-CoV-2 (COVID-19) mRNA-1273 vaccine 3 03/26/20 Recorded influenza virus vaccine, inactivated 11/30/18 Milad rded zoster vaccine, inactivated 11/14/18 Recorded pneumococcal 23-valent vaccine 10/20/15 Given zoster vaccine live 02/21/09 Recorded tetanus/diphtheria/pertuss, acel (Tdap) 02/19/06 R ecorded 1Result Comment: 2020-12-16: Historical information-source unspecified 2Result Comment: 2020-12-16: Historical information-source unspecified 3Result Comment: 2020-12-16: Historical information-source unspecified Medications amLODIPine 2.5 mg oral tablet TAKE 1 TABLET BY MOUTH EVERY DAY IN THE EVENING Start Date: 06/13/22 Status: Ordered chondroitin-glucosamine Start: 03/04/15 12:59:00 PM EST, 1 tab, PO, bid Start Date: 03/04/15 Status: Ordered Colace Start: 11/27/22 10:29:00 AM EDT Start Date: 11/27/22 Status: Ordered hydroCHLOROthiazide 25 mg oral tablet TAKE 1/2 TABLET BY MOUTH ONCE A WEEK ON SATURDAY Start Date: 06/13/22 Status: Ordered losartan 50 mg oral tablet Start: 05/04/14 3:28:00 PM EDT, 1 tab, PO, Daily Start Date: 05/04/14 Status: Ordered multivitamin Start: 05/04/14 3:32:00 PM EDT, 1 tab, PO, Daily Start Date: 05/04/14 Status: Ordered omega-3 polyunsaturated fatty acids 1000 mg oral capsule Start: 05/04/14 3:30:00 PM EDT, 2 cap, PO, Daily Start Date: 05/04/14 Status: Ordered simvastatin Start: 05/04/14 3:27:00 PM EDT, 20 mg =, PO, qhs Start Date: 05/04/14 Status: Ordered spironolactone 25 mg oral tablet TAKE 1/2 TABLET BY MOUTH THREE DAYS PER WEEK (M,W,F). Start Date: 06/13/22 Status: Ordered Vitamin B12 1000 mcg oral tablet Start: 05/04/14 3:31:00 PM EDT, 1 tab, PO, Daily Start Date: 05/04/14 Status: Ordered Vitamin D3 Start: 11/27/22 10:29:00 AM EDT Start Date: 11/27/22 Status: Ordered warfarin 5 mg oral tablet Start: 05/04/14 3:27:00 PM EDT, 1 tab, PO, Daily Start Date: 05/04/14 Status: Ordered Mental Status 07/26/23 Barriers to Learning one year None evide nt Mandatory Health Literacy Documentation Yes Health Literacy Communication Barriers N ever Primary Language Khmer Problem List Condition Confirmation Course Effective Dates Status H ealth Status Informant Adenomatous polyp of colon Confirmed Active Lymphadenopathy of right cervical region Confirmed Active S/P AVR (aortic valve replacement) Confirmed Active Hx of bladder cancer Confirmed Active Lymphadenopathy Confirmed Active Mass in neck Confirmed Active Submandibular sialoadenitis Confirmed Active Submandibular sialolithiasis Confirmed Active Urinary urgency Confirmed Active Weight disorder Confirmed Active Diagnosis Diagnosis Type Effective Dates Health Status Clinical Service Informant Bilateral primary osteoarthritis of knee Discharge Diagnosis 07/26/23 Non-Specified Balance problem Discharge Diagnosis 07/26/23 Non-Specified Procedures Procedure Date Related Diagnosis Body Site Status Cystoscope 1 06/05/22 Completed Colonoscopy 2 05/25/20 Completed Examination of eye 3 07/24/19 Comp leted Doppler right lower extremity 07/15/15 Completed MRA of the intracranial circ ullation without contrast 07/08/15 Completed MRI of the brain combo 07/08/15 Co mpleted chest 07/07/[address] of yead without contrast 07/07/15 Completed Angiogramof the neck combo 03/09/15 Completed Excision of submandibular gland 4 03/06/15 Completed MRI 5 11/30/14 Completed CXR - Chest X-ray 6 11/19/14 Compl eted Chest x-ray 7 11/10/14 Completed Colonoscopy 8 09/28/14 Completed Bladder 9 Completed Colonoscopy 10 Completed Heart 11 Completed 1Cystoscopy, Bilateral retrograde pyelograms with radiographic interpretation. 2IMPRESSION: 1) The examined portion of the ileum was normal 2) One 5mm polyp in the ascending colon, removed with a cold snare. Resected and retrieved. Clip was placed 3) Diverticulosis in the sigmoid colon 4) Internal hemorrhoids 5) The examination was otherwise normal on direct and retroflexion views 3IMPRESSION: Mild primary open-angle glaucoma which is stable since recent cataract surgery. Follow up in 6 months. 4Right side for acute sialoadenitis 5MRI abdomen combo 6no active disease in the chest 7No acute cardiopulmonary findings. No significant change in appearance of chest. 8Ascending colon, biopsy: Fragments of hyperplastic polyp 9cancer-surgical tx 1994 10done in 2009 11valve surgery in 1993 Vital Signs Most recent to oldest [Reference Range]: 1 Patient Weight 94.5 kg (07/26/23 9:38 AM) Heart Rate 57 bpm (07/26/23 9:38 AM) Respiratory Rate 20 br/min (07/26/23 9:38 AM) Blood Pressure 118/75mmHg (07/26/23 9:38 AM) Social History Social History Type Response Tobacco Former smoker, Cigar ettes 1 Smoking Status Never smoked cigaret bar Sex Male 1Quit in 1975. Smoked approx 1 ppd for 15 years. Patient Care team information Care Team Personnel Name: MD Mendez Jesse Position: Physician Member Role: Primary Care Provider Address: Address: [address] [address] Care Team Related Persons Name: CLEO HAUSER Address: home [address] [place] [address] MAR[place] ALEJANDRA SOLANO [phone]
--- OUTSIDE RECORDS SUMMARY | 2023-08-04 06:22 | External Medical Summary | Summary of Care ---
Author Name Unknown Organization [facility] Address [address] [facility] [place] [address] Phone [phone] Care Team Providers Care Kelp Gatherer Name Role Phone Unavailable Primary Care Provider Unavailabl e Reason for Visit * Reason Comments Outpatient Testing Encounter Details Date Type Department Care Team (Late st Contact Info) Description 07/23/2023 9:50 AM EDT Laboratory Laboratory [facility] [place] [address] [place] [phone] [facility] 200 [facility] [place] [address] 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 Allergies No known active allergiesdocumented as of this encounter (statuses as of 07/23/2023) Medications Medication Sig Dispensed Refills Start Date [...] MG Oral Tablet (Coumadin)Indicati ons: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,correction current use of anticoagulant therapy TAKE 7.5MG ON SATURDAY THEN 5MG ALL OTHER DAYS OF WEEK OR DIRECTED BY ANTICOAGULATION PHARMACIST 102 Tablet 3 06/19/2023 Active documented as of this encounter (statuses as of 07/23/2023) Active Problems Problem Noted Date Diagnosed Date Hx of actinic keratosis 07/16/2018 Syncope 07/10/2015 First degree AV block 07/10/2015 Personal history of malignant neoplasm of skin 0 09/04/2010 Overview: BCC L chest 02/2021, BCC L glabella 03/2020, and R upper arm 02/2020, BCC R upper lateral arm, R evangelical 02/2013, possible BCC chest - unknown year (Lindy) Dyslipidemia, goal LDL below 70 05/31/2010 BMI 35-39 ISOLATED (SEE ACTUAL BMI) 08/01/2009 Overview: Per Obesity Protocol, #19 correction current use of anticoagulant therapy 1 04/04/2002 Overview: ICD-10 update of inactive term 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 08/27/2001 Overview: [facility] Anticoagulation management encounter 08/27/2001 documented as of this encounter (statuses as of 07/23/2023) Immunizations Name Administration Dates Next Due COVID-19 mRNA, LNP-s, No Pre serve, 2-Dose Series (Moderna) 04/21/2020,03/26/2020 Seasonal Influenza, Split, IIV3, With Preserve, Inj 11/15/2008,12/16/2006 documented as of this encounter Social History Tobacco Use Types Packs/Day Years Used Date Smoking Tobacco: Former Cigarettes Q uit: 1976 Smokeless Tobacco: Never Alcohol Use Standard Drinks/Week Comments Yes 0 (1 standard drink = 0.6 oz pur e alcohol) 2-3 drinks/week Sex and Gender Information Value Date Recorded Sex Assigned at Not on file Gender Identity Not on file Sexual Orientation Not on file Job Start Date Occupation Industry Not on file Not on file Not on file documented as of this encounter Plan of Treatment Upcoming Encounters Date Type Department Care Team (Late st Contact Info) Description 07/24/2023 6:15 AM EDT Anticoagulation Centralized Clinical Pharmacy Services, Jennifer Esteban [address] [place] [address] [place] [address] [place] [address] 07/30/2023 1:30 PM EDT Cardiac Studies Cardiac Studies, [facility] 132 [facility] [place] [address] 11/07/2023 11:00 AM EDT Office Visit Cardiology, [facility] 132 [facility] [place] [address] Evonne Alvarado CRNP [address] [place] [address] 08/17/2024 8:15 AM EDT Office Visit Dermatology State Dhara Burrell 200 [facility] [place] [address] Jose L Bell MD 200 [facility] [place] [address] Pending Results Name Type Priority Associated Diagnoses Date /Time PT INR Lab Routine 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 07/23/2023 9:59 AM EDT Scheduled Procedures Name Priority Associated Diagnoses Date/Ti [...] this encounter Medical Devices Implanted Type Area Single Pass Soil Stabilizer Operator Device Identifier Shelf Expiration Date Model / Serial / Lot Lens Intraoc 20.5 - [id number] - [id number] Implanted:Qty: 1 on 03/19/2019 by Jean Villanueva MD at [facility] Left: Eye [employer]OM[employer] 10/19/2023 [id number] / [id number] / Lens Intraoc 21.0 - [id number] - [id number] Implanted:Qty: 1 on 03/31/2019 by Jean Villanueva MD at OR [facility] Right: Eye [employer]CH [employer] LOMB 09/18/2023 [id number] / [id number] / [id number] Clip Quick 2.8mm 230cm - [id number] Implanted:Qty: 1 on 05/25/2020 by Keith Olivia MD at ENDOSCOPY [facility] [employer] 08/17/2022 [id number]-202UR.[id number] / / documented as of this encounter Visit Diagnoses Diagnosis 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 Heart valve replaced by other means documented in this encounter
--- OUTSIDE RECORDS SUMMARY | 2023-08-04 06:22 | External Medical Summary ---
Author Name Unknown Address Unknown Organization K09:[facility] [place] [address] Laboratory Report Ordering Provider Test Date Status NATANAELJONELLE 07/23/2023 09:59:02 Final Standing order for pt/inr. < br/>Please draw pt/inr every 1 to 4 weeks as requested
Results to [facility]

Warfarin Therapy
INR: 2.0-3.0 conventional anticoagulation
INR: 2.5-3.5 high intensity anticoagulation Observation Date Value Abnormality Reference (Units ) Status PT 07/23/2023 09:59:02 33.4 Above high normal 11 .6-15.2 (seconds) Final INR 07/23/2023 09:59:02 3.2 Above high normal 0. 8-1.2 Final Performing Location [facility] [place] [address]
--- OUTSIDE RECORDS SUMMARY | 2023-08-04 06:22 | External Medical Summary | Summary of Care ---
Author Name Unknown Organization [facility] Address [address] [facility] [place] [address] Phone [phone] Care Team Providers Care Chin Strap Sewer Name Role Phone Unavailable Primary Care Provider Unavailabl e Reason for Visit * Reason Comments Outpatient Testing Encounter Details Date Type Department Care Team (Late st Contact Info) Description 07/23/2023 9:50 AM EDT Laboratory Laboratory [facility] [place] [address] [place] [phone] [facility] 200 [facility] [place] [address] 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 Allergies No known [...] MG Oral Tablet (Coumadin)Indicati ons: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,residential current use of anticoagulant therapy TAKE 7.5MG [...] 02/2020, BCC R upper lateral arm, R restorationism 02/2013, possible BCC chest - unknown year (Lindy) Dyslipidemia, goal LDL below 70 05/31/2010 BMI 35-39 ISOLATED (SEE ACTUAL BMI) 08/01/2009 Overview: Per Obesity Protocol, #19 residential current use of anticoagulant therapy 1 04/04/2002 [...] Anticoagulation Centralized Clinical Pharmacy Services, Jennifer Esteban [address] [place] [address] [place] [address] [place] [address] 07/30/2023 1:30 PM EDT Cardiac Studies Cardiac Studies, [facility] 132 [facility] [place] [address] 11/07/2023 11:00 AM EDT Office Visit Cardiology, [facility] 132 [facility] [place] [address] Evonne Alvarado CRNP [address] [place] [address] 08/17/2024 8:15 AM EDT Office Visit Dermatology State Dhara Burrell 200 [facility] [place] [address] Jose L Bell MD 200 [facility] [place] [address] Pending Results Name Type Priority Associated Diagnoses [...] this encounter Medical Devices Implanted Type Area Phys Assistant Device Identifier Shelf Expiration Date Model / Serial / Lot Lens Intraoc 20.5 - [id number] - [id number] Implanted:Qty: 1 on 03/19/2019 by Jean Villanueva MD at OR [facility] Left: Eye [employer]OMB 10/19/2023 [id number] / [id number] / Lens Intraoc 21.0 - [id number] - [id number] Implanted:Qty: 1 on 03/31/2019 by Jean Villanueva MD at OR [facility] Right: Eye [employer]OMB 09/18/2023 [id number] / [id number] / [id number] Clip Quick 2.8mm 230cm - [id number] Implanted:Qty: 1 on 05/25/2020 by Keith Olivia MD at ENDOSCOPY [facility] [employer] 08/17/2022 [id number]-[id number].A / / documented as of this encounter Visit Diagnoses Diagnosis 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 Heart valve replaced by other means documented in this encounter
--- OUTSIDE RECORDS SUMMARY | 2023-08-04 06:22 | External Medical Summary | Summary of Care ---
Author Name Unknown Organization [facility] Address [address] [facility] [address] Phone [phone] Care Team Providers Care Laminator Hand Name Role Phone Unavailable Primary Care Provider Unavailabl e Reason for Referral * Evaluate & Treat - Unlimited Visits (Within 10 days (routine)) - Authorized Specialty Diagnoses / Procedures Referred By Peggy dunbar Referred To Contact Dermatology Diagnoses Basal cell carcinoma (BCC) of chin Temi Ardon MD [address] [place] [address] Referral ID Status Reason Start Date Expiration Date Visits Requested Visits Authorized [id number] Authorized Specialty Services Required 08/02/2023 999 999 Question Answer Referral Priority Within 10 days (routine) Are you referring the patient for Mohs Surgery and have a current positive skin cancer biopsy result? Yes Where should this appointment be scheduled? [facility] Type of Procedure MOHS Surgery Comments A. Skin, right chin, shave: Basal cell carcinoma, nodular type Reason for Visit * Reason Onset Date Comments Scheduling 08/02/2023 Encounter Details Date Type Department Care Team (Late st Contact Info) Description 08/02/2023 Telephone Dermatology State Dhara Burrell [address] [place] [address] Temi Ardon MD [address] [place] [address] [address] Scheduling Allergies No known active allergiesdocumented as of this encounter (statuses as of 08/02/2023) Medications Medication Sig Dispensed Refills Start Date [...] MG Oral Tablet (Coumadin)Indicati ons: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,snf current use of anticoagulant therapy TAKE 7.5MG ON SATURDAY THEN 5MG ALL OTHER DAYS OF WEEK OR DIRECTED BY ANTICOAGULATION PHARMACIST 102 Tablet 3 06/19/2023 Active documented as of this encounter (statuses as of 08/02/2023) Active Problems Problem Noted Date Diagnosed Date Hx of actinic keratosis 07/16/2018 Syncope 07/10/2015 First degree AV block 07/10/2015 Personal history of malignant neoplasm of skin 0 09/04/2010 Overview: BCC L chest 02/2021, BCC L glabella 03/2020, and R upper arm 02/2020, BCC R upper lateral arm, R congregation 02/2013, possible BCC chest - unknown year (Lindy) Dyslipidemia, goal LDL below 70 05/31/2010 BMI 35-39 ISOLATED (SEE ACTUAL BMI) 08/01/2009 Overview: Per 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 Anticoagulation management encounter 08/27/2001 documented as of this encounter (statuses as of 08/02/2023) Immunizations Name Administration Dates Next Due COVID-19 [...] on file documented as of this encounter Miscellaneous Notes * Telephone Encounter - Shania Sosa OSA - 08/02/2023 11:34 AM EDT Called patient, scheduled Mohs surgery for September 25. * Telephone Encounter - Temi Ardon MD - 08/02/2023 7:01 AM EDT Please schedule this patient for Mohs. A. Skin, right chin, shave: Basal cell carcinoma, nodular type documented in this encounter Plan of Treatment Upcoming Encounters Date Type Department Care Team (Late st Contact Info) Description 08/13/2023 9:50 AM EDT Laboratory Laboratory [address] [place] [phone] [address] [place] [address] 08/14/2023 6:15 AM EDT Anticoagulation Centralized Clinical Pharmacy Services, Jennifer Esteban [address] [place] [address] [place] [address] [place] [address] 60 [facility] [place] [address] 09/26/2023 8:00 AM EDT Office Visit MOHS Surgery [facility] [place] [address] [place] [address] Temi Ardon MD [address] [place] [address] [place] [address] 11/07/2023 11:00 AM EDT Office Visit Cardiology, [facility] [address] [place] [address] Evonne Alvarado CRNP [address] [place] [address] 08/17/2024 8:15 AM EDT Office Visit Dermatology [facility] 200 [facility] [place] [address] Jose L Bell MD 200 [facility] [place] [address] Scheduled Procedures Name Priority Associated Diagnoses Date/Ti me COLONOSCOPY FLEXIBLE PROXIMAL DIAGNOSTIC Recall History of colon polyps Scheduled Referrals Name Type Priority Associated Diagnoses Orde r Schedule MOHS SURGERY REFERRAL OP Referral Within 10 days (routine) Basal cell carcinoma (BCC) of chin Ordered: 08/02/2023 Health Maintenance Due Date Last Done Comments Depression Screening 1957 DTaP,Tdap,and Td Vaccines (1 - Tdap) 1962 Zoster Vaccines (3 of 3) 01/09/2019 11/14/2018, 05/2009 COVID-19 Vaccine ( - 2022- season) 2022 09/24/2022, 11/10/2021, 11/10/2021, Additional history exists Influenza Vaccine (FLU shot) (Season Ended) 2023 10/04/2020, 11/30/2018, 11/18/2017, Additional history exists Colonoscopy 05/25/2025 05/25/2020, 08/2020, 09/28/2014, Additional history [...] this encounter Medical Devices Implanted Type Area Laborer Concrete Paving Device Identifier Shelf Expiration Date Model / Serial / Lot Lens Intraoc 20.5 - [id number] - [id number] Implanted:Qty: 1 on 03/19/2019 by Jean Villanueva MD at [facility] Left: Eye [employer]OM[employer] 10/19/2023 [id number] / [id number] / Lens Intraoc 21.0 - [id number] - [id number] Implanted:Qty: 1 on 03/31/2019 by Jean Villanueva MD at OR [facility] Right: Eye [employer]CH [employer] LOMB 09/18/2023 [id number] / [id number] / [id number] Clip Quick 2.8mm 230cm - [id number] Implanted:Qty: 1 on 05/25/2020 by Keith Olivia MD at [facility] [employer] 08/17/2022 [id number]-202UR.A / / documented as of this encounter Visit Diagnoses Diagnosis Basal cell carcinoma (BCC) of chin- Primary documented in this encounter
--- OUTSIDE RECORDS SUMMARY | 2023-08-04 06:22 | External Medical Summary | Summary of Care ---
Author Name Unknown Organization [facility] Address [address] [facility] [address] Phone [phone] Care Team Providers Care Mva Operator Name Role Phone Unavailable Primary Care Provider Unavailabl e Reason for Referral * Evaluate & Treat - Unlimited Visits (Within 10 days (routine)) - Authorized Specialty Diagnoses / Procedures Referred By Peggy dunbar Referred To Contact Dermatology Diagnoses Basal cell carcinoma (BCC) of chin Temi Ardon MD [address] [place] [address] Referral ID Status Reason Start Date Expiration Date Visits Requested Visits Authorized [id number] Authorized Specialty Services Required 08/02/2023 999 999 [...] Dhara Burrell [address] [place] [address] Temi Ardon MD [address] [place] [address] [address] Scheduling Allergies No known active allergiesdocumented as [...] MG Oral Tablet (Coumadin)Indicati ons: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,jail current use of anticoagulant therapy TAKE 7.5MG [...] 02/2020, BCC R upper lateral arm, R muslim 02/2013, possible BCC chest - unknown year (Lindy) Dyslipidemia, goal LDL below 70 05/31/2010 BMI 35-39 ISOLATED (SEE ACTUAL BMI) 08/01/2009 Overview: 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 A. Skin, right chin, shave: Basal cell carcinoma, nodular type documented in this encounter Plan of Treatment Upcoming Encounters Date Type Department Care Team (Late st Contact Info) Description 08/13/2023 9:50 AM EDT Laboratory Laboratory [facility] [place] 200 [facility] [place] [phone] [address] [place] [address] [address] 08/14/2023 6:15 AM EDT [facility] Clinical Pharmacy Services, Jennifer Esteban [address] [place] [address] [place] [address] [facility] 58 60 [facility] [place] [address] 11/07/2023 11:00 AM EDT Office Visit Cardiology, [facility] [address] Evonne Alvarado CRNP 132 [place] [address] 08/17/2024 8:15 AM EDT Office Visit Dermatology [facility] [place] 200 [facility] [place] [address] Jose L Bell MD 200 [facility] [place] [address] Scheduled Procedures Name Priority Associated Diagnoses Date/Ti [...] 3) 01/09/2019 11/14/2018, 05/2009 COVID-19 Vaccine ( season) 2022 09/24/2022, 11/10/2021, 11/10/2021, Additional history [...] this encounter Medical Devices Implanted Type Area Sheet Rock Layer Device Identifier Shelf Expiration Date Model / Serial / Lot Lens Intraoc 20.5 - [id number] - [id number] Implanted:Qty: 1 on 03/19/2019 by Jean Villanueva MD at OR [facility] Left: Eye [employer]OM[employer] 10/19/2023 [id number] / [id number] / Lens Intraoc 21.0 - [id number] - [id number] Implanted:Qty: 1 on 03/31/2019 by Jean Villanueva MD at OR [facility] Right: Eye [employer]OM[employer] 09/18/2023 [id number] / [id number] / [id number] Clip Quick 2.8mm 230cm - [id number] Implanted:Qty: 1 on 05/25/2020 by Keith Olivia MD at ENDOSCOPY [facility] 08/17/2022 [id number]-[id number].A / / documented as of this encounter Visit Diagnoses Diagnosis Basal cell carcinoma (BCC) of chin- Primary documented in this encounter
--- NOTE | 2023-08-04 06:53 | Emergency Department Note ---
Impression & Plan Acute lower GI bleeding, Hematochezia ED Provider Note NAME: KSENIA HAUSER AGE: 78 SEX: M : 1945 ARRIVES VIA: Walk-In INFORMANT: Patient, ED PROVIDER(S): Nixon Maldonado DO CHIEF COMPLAINT: GI bleeding HPI: The patient is an 78-year-old male who has a history of mechanical valve who takes Coumadin who presented to the emergency department for rectal bleeding. The patient noticed this morning that he was having dark red stool per rectum. He also noticed some bright red bleeding as well. The patient denies having any rectal pain. He does complain of some lower abdominal tenderness. He denies having any syncope. He denies having any history of GI bleeding in the past. The patient does have a history of prostate cancer in the past. He was treated with radiation. The patient denies having any chest pain or difficulty breathing. ROS: See above HPI for pertinent positives & negatives. A total of 10 systems reviewed and were otherwise negative. PAST MEDICAL HISTORY: See Below PAST SURGICAL HISTORY: See Below FAMILY HISTORY: See Below SOCIAL HISTORY: See Below HOME MEDICATIONS: See Below ALLERGIES: See Below VITALS: See Below PHYSICAL EXAMINATION: GENERAL: Patient is awake alert in no acute distress patient is resting comfortably and showing no signs of anxiety EYES: The conjunctivae are clear. The pupils are round and reactive. EARS, NOSE, MOUTH AND THROAT: The nose is without any evidence of any deformity. NECK: The neck is nontender and supple. RESPIRATORY: Normal respiratory effort is noted there is no evidence of wheezing rhonchi or rales CARDIOVASCULAR: Regular rate and rhythm was noted to auscultation. Metallic click was noted. GASTROINTESTINAL: The abdomen was soft and mildly distended. There is lower abdominal tenderness to palpation but no guarding or rigidity. Rectal exam revealed gross blood. There is no obvious external source. There is no fissure. MUSCULOSKELETAL/EXTREMITIES: There is no evidence of gross deformity full range of motion is noted in the hips and shoulders. SKIN: There is no obvious evidence of any rash. There are no petechiae, pallor or cyanosis noted. NEUROLOGIC: Patient is awake alert and oriented x3. Gait was steady. MEDICAL DECISION MAKING: The patient is an 78-year-old male who presented to the emergency department for an evaluation of rectal bleeding. The patient had hematochezia. This began over the course the last 24 hours. The patient was not found to be tachycardic or hypotensive. I discussed the patient's laboratory and radiographic studies with him. CT did not reveal any obvious source of lower GI bleeding. He does have a history of radiation to his prostate area. This could be related although it could also be related to other lower GI bleeding sources. No obvious source was noted on direct visualization. Because of the patient's comorbidities as well as his medications I discussed patient's case with the on- call [facility] hospitalist. They have agreed to evaluate the patient in the emergency department for further management and disposition. Triage Nursing notes reviewed. Prior medical records reviewed Vital Signs: reviewed and remarkable for no significant abnormalities Differential diagnosis: Diverticulosis, AVM, coagulopathy, colitis, inflammatory bowel disease, malignancy, Meghan-Moe tear, esophagitis, peptic ulcer disease, variceal bleed, gastritis, epistaxis, fissure, hemorrhoids, as well as other pathologies. ER treatment provided: See below Diagnostics interpreted by me: ECG: none Cardiac Monitoring: An order was placed for continuous cardiac monitoring. The monitor shows a rate of 56 bpm with sinus bradycardia. Laboratory studies: As stated above and show below. Imaging studies: See below. Radiographic imaging was reviewed by myself Consultation(s): I discussed this case with Dr. Clarke who [facility] Past Med/Surg History Problem List (Updated 08/04/23 @ 08:57 by Nixon Maldonado DO) Hematochezia (Acute) Acute lower GI bleeding (Acute) Radiation cystitis (Acute) Elevated prostate specific antigen (PSA) Greater trochanteric bursitis Effusion, right knee Effusion, left knee Hematuria (Acute) Hyperlipidemia Prostate cancer (Chronic 12/29/19) radiation HTN (hypertension), benign H/O [facility]follows with Dr. 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: No Beliefs That Will Affect Care: None marital status: Current Living Situation: Spouse current occupational status: retired current occupation: [employer] Feels Safe at Home: Yes Diet: other caffeine: Yes (2 cups/day) during the past year weight has: remained stable Assistive Devices: Glasses Allergies Allergies Allergy/AdvReac Type Severity Reaction Status Date / Time No Known Allergies Allergy Verified 08/04/23 08:19 Home Meds Home Medications Medication Instructions Recorded Confirmed cyanocobalamin (vitamin B-12) 1,000 mcg PO QAM ##0 11/10/14 08/04/23 1,000 mcg tablet multivitamin 1 tab PO QAM ##0 11/10/14 08/04/23 calcium carbonate (Calcium 600) 600 mg PO QAM 02/03/20 08/04/23 glucosamine 750 it-ocdklkssggm-[id number] 1 tab PO BID 02/03/20 08/04/23 no1 644 mg-C 30 mg-galindo 1 mg tablet (Osteo Bi-Flex Triple Strength) diphenhydramine 25 1 tab PO HS 07/15/21 08/04/23 mg-acetaminophen 500 mg tablet (Tylenol PM Extra Strength) losartan 100 mg tablet 100 mg PO QAM 07/15/21 08/04/23 simvastatin 20 mg tablet 20 mg PO HS 07/15/21 08/04/23 amlodipine 2.5 mg tablet 2.5 mg PO HS 08/01/21 08/04/23 cholecalciferol (vitamin D3) 125 125 mcg PO QAM 05/24/22 08/04/23 mcg (5,000 unit) tablet (Vitamin D3) hydrochlorothiazide 25 mg tablet 12.5 mg PO WK 05/24/22 08/04/23 magnesium oxide 500 mg PO QAM 05/24/22 08/04/23 zinc gluconate 50 mg tablet 50 mg PO QAM 05/24/22 08/04/23 spironolactone 25 mg tablet 12.5 mg PO 3XWK 05/31/22 08/04/23 docusate sodium 100 mg capsule 100 mg PO HS 08/14/22 08/04/23 (Stool Softener) warfarin 5 mg tablet 5 mg PO QPM 01/31/23 08/04/23 lotilaner 0.25 % eye drops (Xdemvy) 1 drp OPB BID 08/04/23 08/04/23 Results & Data (ED) Vital Signs Vital Signs - 24 hr 08/04/23 06:30 08/04/23 07:05 08/04/23 07:23 Temperature 36 C L Temperature Source Temporal Artery Scan Pulse Rate 63 60 Respiratory Rate 18 Respiratory Effort / Characteristics Non-Labored Respiratory Depth Normal Blood Pressure 144/85 H Blood Pressure Mean 104 Pulse Oximetry 96 96 Oxygen Delivery Method Room Air Room Air Sepsis Recent Fever Within 48 Hours No Sepsis New/Unexplained Change in Mental Status No Sepsis Action Taken by Nursing No Action Required 08/04/23 07:33 08/04/23 08:00 Temperature Temperature Source Pulse Rate 70 56 L Respiratory Rate 19 15 Respiratory Effort / Characteristics Respiratory Depth Blood Pressure 132/70 134/65 Blood Pressure Mean 90 88 Pulse Oximetry 95 99 Oxygen Delivery Method Sepsis Recent Fever Within 48 Hours Sepsis New/Unexplained Change in Mental Status Sepsis Action Taken by Custodial Medications Current Medication List: was personally reviewed by me Laboratory Data Attestation: I reviewed the patient's lab results. 08/04/23 06:44 08/04/23 06:44 Lab Results 08/04/23 08/04/23 Range/Units 06:44 06:50 WBC 4.30 L (4.8-10.8) K/ul RBC 3.86 L (4.70-6.10) M/uL Hgb 12.7 L (14.0-18.0) g/dl Hct 38.4 L (42.0-52.0) % MCV 99.5 (80.0-100.0) fL MCH 32.9 (25.0-34.0) pg MCHC 33.1 (32.0-36.0) g/dL RDW Std Deviation 51.7 H (36.4-46.3) fL RDW Coeff of Skye 14.1 (11.5-14.5) % Plt Count 208 (130-400) K/uL MPV 9.8 (9.4-12.4) fL Immature Gran % (Auto) 0.2 % Neut % (Auto) 46.9 % Lymph % (Auto) 25.6 % Delta % (Auto) 14.2 % Eos % (Auto) 11.9 % Baso % (Auto) 1.2 % Neut # (Auto) 2.02 (1.40-6.50) K/uL Lymph # (Auto) 1.10 L (1.20-3.40) K/uL Delta # (Auto) 0.61 H (0.11-0.59) K/uL Eos # (Auto) 0.51 H (0.00-0.50) K/uL Baso # (Auto) 0.05 (0.00-0.20) K/uL Immature Gran # (Auto) 0.01 (0.01-0.20) K/uL PT 30.8 H (9.0-12.0) Seconds INR 3.1 H (0.9-1.1) APTT 40 H (21-31) Seconds PTT Ratio 1.5 Sodium 141 (136-145) mmol/L Potassium 4.1 (3.5-5.1) mmol/L Chloride 110 H (98-107) mmol/L Carbon Dioxide 26 (21-32) mmol/L Anion Gap 5 (3-11) BUN 34 H (6-23) mg/dl Creatinine 1.99 H (0.6-1.4) mg/dl Est Cr Clr Drug Dosing 31.4 ml/min Est GFR ( Amer) 35.7 ml/min Est GFR (Non-Af Amer) 30.8 ml/min BUN/Creatinine Ratio 17.1 (10-20) Glucose 112 H (70-99(Fasting)) mg/dl Calcium 9.3 (8.6-10.3) mg/dl Total Bilirubin 0.6 (0.2-1.0) mg/dl AST 18 (13-39) U/L ALT 11 (7-52) U/L Alkaline Phosphatase 59 (34-104) U/L Total Protein 7.1 (6.0-8.3) gm/dl Albumin 4.2 (3.4-5.0) gm/dl Globulin 2.9 (2.5-4.0) gm/dl Albumin/Globulin Ratio 1.4 (0.9-2) Lipase 41 (11-82) U/L Blood Type O Positive Antibody Screen NEGATIVE Administered Medications Discontinued Medications Sodium Chloride (Nss) 500 mls @ 999 mls/hr IV .Q31M STA Stop: 08/04/23 07:20 Last Infusion: 08/04/23 07:34 Dose: Infused Documented By: Admin: 08/04/23 06:59 Dose: 999 mls/hr Documented By: JIMMY Ioversol (Optiray 320 100ml) 94 ml IV ONCE ONE Stop: 08/04/23 07:27 Last Admin: 08/04/23 07:26 Dose: 94 ml Documented By: ARRON Imaging Data Attestation: I personally reviewed and interpreted this imaging study as follows: My Impression: CT of the abdomen and pelvis was obtained in the emergency department. My interpretation is no free air or signs of bowel obstruction, final report below. Radiologist's Impression: Abdomen/Pelvis CT 08/04/23 06:[address] WITH IV CONTRAST CT DOSE: 1325.65 mGy.cm HISTORY: Acute generalized abdominal pain with GI bleed LGIB TECHNIQUE: Multiaxial CT images of the abdomen and pelvis were performed following the IV administration of 94 cc of Optiray, A dose lowering technique was utilized adhering to the principles of ALARA. COMPARISON STUDY: Bone scan 01/26/2020, CT abdomen and pelvis 03/25/2018 FINDINGS: Mild bibasilar atelectasis. No free air. Cardiomegaly with sternotomy wires. Unremarkable spleen, pancreas and adrenal glands. Cholelithiasis. 2.2 cm fatty attenuating focus within the hepatic dome on image 32 series 3. There are a few additional scattered likely benign small hypodensities in the liver. Patency of the hepatic and portal veins. There are numerous bilateral complex and simple cysts of the kidneys, many of which demonstrate layering milk of calcium. The largest cyst on the left measures 3.8 cm. No definitive solid renal mass lesions identified on this single phase study. No hydronephrosis. Urinary bladder wall thickening and perivesicular stranding with partial distention. Mild prostatomegaly. Left inguinal canal surgical clips. Atherosclerosis of the aorta and branch vessels. No lymphadenopathy. Small hiatal hernia. No bowel obstruction or bowel wall thickening. Colonic diverticulosis. Noninflamed appendix. Small fat filled midabdominal supraumbilical hernia with diastases of 2.8 cm on image 81 series 3. No acute fracture. Degenerative changes of the spine, pelvis and hips. IMPRESSION: 1. No acute intra-abdominal or intrapelvic abnormality. 2. Colonic diverticulosis. 3. Cholelithiasis. 4. Small fat filled midline abdominal wall hernia. 5. Numerous complex and simple renal cysts redemonstrated. 6. Additional findings as above. ACT 112: Negative or not required by law. The above report was generated using voice recognition software. It may contain grammatical, syntax or spelling errors. Electronically signed by: Agustin Malone M.D. 08/04/2023 8:28 AM Discharge Plan Visit Data Chief Complaint: Rectal Bleed ED Provider: Nixon Maldonado Discharge Problem: Acute lower GI bleeding, Hematochezia Patient Disposition: Being Evaluated by Hospitalist Forms Stand Alone Forms: My [facility] Prescriptions Prescriptions: No Action calcium carbonate [Calcium 600] 600 mg calcium (1,500 mg) tablet 600 mg PO QAM Osteo Bi-Flex Triple Strength 750 mg-644 mg- 30 mg-1 mg tablet 1 tab PO BID Rx Instructions: give with meal/snack multivitamin Tablet 1 tab PO QAM Qty: 0 cyanocobalamin (vitamin B-12) 1,000 mcg Tablet 1,000 mcg PO QAM Qty: 0 magnesium oxide 500 mg Tablet 500 mg PO QAM zinc gluconate 50 mg Tablet 50 mg PO QAM hydrochlorothiazide 25 mg tablet 12.5 mg PO WK Rx Instructions: Saturday cholecalciferol (vitamin D3) [Vitamin D3] 125 mcg (5,000 unit) Tablet 125 mcg PO QAM warfarin 5 mg tablet 5 mg PO QPM spironolactone 25 mg tablet 12.5 mg PO 3XWK Patient Comments: takes in the am Rx Instructions: Takes on Sat amlodipine 2.5 mg Tablet 2.5 mg PO HS simvastatin 20 mg Tablet 20 mg PO HS Tylenol PM Extra Strength 25-500 mg Tablet 1 tab PO HS losartan 100 mg Tablet 100 mg PO QAM docusate sodium [Stool Softener] 100 mg capsule 100 mg PO HS Rx Instructions: Daily HS and QOD in the morning. Xdemvy 0.25 % drops 1 drp OPB BID Referrals Referrals: PCP,NO [Physician] -
[2023-08-04] MEDS: SODIUM CHLORIDE 0.9% 500 ML IV STA (06:59)
[2023-08-04 07:12] LABS: Basophils # (auto) 0.05 K/uL (0.00-0.20); Basophils % (auto) 1.2 %; Eosinophils # (auto) 0.51 K/uL (0.00-0.50); Eosinophils % (auto) 11.9 %; Hematocrit (blood only) 38.4 % (42.0-52.0); Hemoglobin 12.7 g/dl (14.0-18.0); Immature Granulocytes # (auto) 0.01 K/uL (0.01-0.20); Immature Granulocytes % (auto) 0.2 %; Lymphocytes % (auto) 25.6 %; Mean Corpuscular Hemoglobin 32.9 pg (25.0-34.0); Mean Corpuscular Hgb Conc 33.1 g/dL (32.0-36.0); Mean Corpuscular Volume 99.5 fL (80.0-100.0); Mean Platelet Volume 9.8 fL (9.4-12.4); Monocytes # (auto) 0.61 K/uL (0.11-0.59); Monocytes % (auto) 14.2 %; Neutrophils # (auto) 2.02 K/uL (1.40-6.50); Neutrophils % (auto) 46.9 %; Platelet Count 208 K/uL (130-400); RDW Coefficient of Variation 14.1 % (11.5-14.5); RDW Standard Deviation 51.7 fL (36.4-46.3); Red Blood Count 3.86 M/uL (4.70-6.10)
[2023-08-04] MEDS: OPTIRAY 320 100ml IV ONE (07:26)
[2023-08-04 07:32] LABS: Albumin Globulin Ratio 1.4 (0.9-2); Albumin Level 4.2 gm/dl (3.4-5.0); BUN Creatinine Ratio 17.1 (10-20); Bilirubin,Total 0.6 mg/dl (0.2-1.0); Calcium 9.3 mg/dl (8.6-10.3); Creatinine Clr Calc Pharmacy 31.4 ml/min; Est GFR (African American) 35.7 ml/min; Est GFR (Non-African American) 30.8 ml/min; Globulin 2.9 gm/dl (2.5-4.0); Potassium 4.1 mmol/L (3.5-5.1); Total Protein 7.1 gm/dl (6.0-8.3)
[2023-08-04 07:33] LABS: INR 3.1 (0.9-1.1); Partial Thromboplastin Ratio 1.5; Partial Thromboplastin Time 40 Seconds (21-31); Prothrombin Time 30.8 Seconds (9.0-12.0)
--- NOTE | 2023-08-04 08:31 | CT Scan Report ---
ABDOMEN AND PELVIS CT WITH IV CONTRAST CT DOSE: 1325.65 mGy.cm HISTORY: Acute generalized abdominal pain with GI bleed LGIB TECHNIQUE: Multiaxial CT images of the abdomen and pelvis were performed following the IV administrat ion of 94 cc of Optiray, A dose lowering technique was utilized adhering to the principles of ALARA. COMPARISON STUDY: Bone scan 01/26/2020, CT abdomen and pelvis 03/25/2018 FINDINGS: Mild bibasilar atelectasis. No free air. Cardiomegaly with sternotomy wires. Unremarkable s pleen, pancreas and adrenal glands. Cholelithiasis. 2.2 cm fatty attenuating focus within the hepatic dome on image 32 series 3. There are a few additional scattered likely benign small hypodensities in the liver. Patency of the hepatic and portal veins. There are numerous bilateral complex and simple cysts of the kidneys, many of which demonstrate layer ing milk of calcium. The largest cyst on the left measures 3.8 cm. No definitive solid renal mass les ions identified on this single phase study. No hydronephrosis. Urinary bladder wall thickening and pe rivesicular stranding with partial distention. Mild prostatomegaly. Left inguinal canal surgical clip s. Atherosclerosis of the aorta and branch vessels. No lymphadenopathy. Small hiatal hernia. No bowel obstruction or bowel wall thickening. Colonic diverticulosis. Noninflam ed appendix. Small fat filled midabdominal supraumbilical hernia with diastases of 2.8 cm on image 81 series 3. No acute fracture. Degenerative changes of the spine, pelvis and hips. IMPRESSION: 1. No acute intra-abdominal or intrapelvic abnormality. 2. Colonic diverticulosis. 3. Cholelithiasis. 4. Small fat filled midline abdominal wall hernia. 5. Numerous complex and simple renal cysts redemonstrated. 6. Additional findings as above. ACT 112: Negative or not required by law. The above report was generated using voice recognition software. It may contain grammatical, syntax o r spelling errors. Electronically signed by: Agustin Malone M.D. 08/04/2023 8:28 AM
[2023-08-04 09:32] LABS: Appearance Urine Clear (Clear); Bacteria Urine Automated None Seen (None Seen); Bilirubin Urine Negative (Negative); Blood Urine Trace (Negative); Cast Urine Automated 0-2 /lpf (0-2); Color Urine Yellow; Epithelial Cell Urine Auto 0-2 /hpf (0-2); Glucose Urine UA Negative (Negative); Ketones Urine Negative (Negative); Leukocyte Esterase Urine Negative (Negative); Nitrite Urine Negative (Negative); Protein Urine Negative (Negative); Specific Gravity Urine 1.039 (1.000-1.030); Urobilinogen Urine Negative (Negative); WBC Urine Automated 0-5 /hpf (0-5)
--- NOTE | 2023-08-04 09:48 | History & Physical Report ---
Date of Service August 04, 2023 Assessment & Plan (1) Acute lower GI bleeding: Plan: Probably diverticular in nature. Serial labs ordered. Currently hemodynamically stable (2) H/O aortic valve replacement: Plan: Completed in the . He takes Coumadin chronically. He sees [facility] cardiology in consultation is pending (3) HTN (hypertension), benign: Plan: Stable. All medications are on hold (4) Prostate cancer: Plan: He completed radiation therapy many years ago. Unlikely his bleeding is due to radiation proctitis (5) Hyperlipidemia: Plan: Stable. All medications are currently on hold Plan Hopeful discharge back to home once bleeding resolves History of Present Illness Chief Complaint: Bloody bowel movement Primary Care Provider: Deon Mendez MD 78-year-old white male who developed bloody bowel movements this morning, August 03. He denies lightheadedness or syncope. No hematemesis. He is on Coumadin chronically for mechanical aortic valve replacement that was done many years ago. He also has a history of radiation therapy for prostate cancer but this was completed years ago and he unlikely has radiation induced proctitis at this point. This most likely represents a diverticular bleed. He is currently hemodynamically stable. He sees [facility] cardiology in consultation is pending. Serial labs ordered. Allergies Allergy/AdvReac Type Severity Reaction Status Date / Time No Known Allergies Allergy Verified 08/04/23 08:19 Home Medications Medication Instructions Recorded Confirmed Type cyanocobalamin (vitamin B-12) 1,000 mcg PO QAM ##0 11/10/14 08/04/23 History 1,000 mcg tablet multivitamin 1 tab PO QAM ##0 11/10/14 08/04/23 History calcium carbonate (Calcium 600) 600 mg PO QAM 02/03/20 08/04/23 History glucosamine 750 cm-vieawjcqaok-rag 1 tab PO BID 02/03/20 08/04/23 History no1 644 mg-C 30 mg-galindo 1 mg tablet (Osteo Bi-Flex Triple Strength) diphenhydramine 25 1 tab PO HS 07/15/21 08/04/23 History mg-acetaminophen 500 mg tablet (Tylenol PM Extra Strength) losartan 100 mg tablet 100 mg PO QAM 07/15/21 08/04/23 History simvastatin 20 mg tablet 20 mg PO HS 07/15/21 08/04/23 History amlodipine 2.5 mg tablet 2.5 mg PO HS 08/01/21 08/04/23 History cholecalciferol (vitamin D3) 125 125 mcg PO QAM 05/24/22 08/04/23 History mcg (5,000 unit) tablet (Vitamin D3) hydrochlorothiazide 25 mg tablet 12.5 mg PO WK 05/24/22 08/04/23 History magnesium oxide 500 mg PO QAM 05/24/22 08/04/23 History zinc gluconate 50 mg tablet 50 mg PO QAM 05/24/22 08/04/23 History spironolactone 25 mg tablet 12.5 mg PO 3XWK 05/31/22 08/04/23 History docusate sodium 100 mg capsule 100 mg PO HS 08/14/22 08/04/23 History (Stool Softener) warfarin 5 mg tablet 5 mg PO QPM 01/31/23 08/04/23 History lotilaner 0.25 % eye drops (Xdemvy) 1 drp OPB BID 08/04/23 08/04/23 History Past Med/Surg History Problem List (Updated 08/04/23 @ 08:57 by Nixon Maldonado DO) Hematochezia (Acute) Acute lower GI bleeding (Acute) Radiation cystitis (Acute) Elevated prostate specific antigen (PSA) Greater trochanteric bursitis Effusion, right knee Effusion, left knee Hematuria (Acute) Hyperlipidemia Prostate cancer (Chronic 12/29/19) radiation HTN (hypertension), benign H/O aortic valve replacement 1993 @ [facility]--follows with Dr. 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 He noticed some bloody stools this morning, August 03 -no urinary retention, no urinary incontinence, no dysuria, no hematuria Musculoskeletal-no joint pain, no muscle tenderness Skin-no bruising, no rashes, no pruritus Neuro-no isolated weakness, no paresthesia Psych-no depression, no anxiety Physical Exam 2 Physical Exam: General-alert and oriented x3, no fever, no chills HEENT-head atraumatic and normocephalic, pupils equal and reactive to light, extraocular muscles intact Neck-no lymphadenopathy or thyromegaly, trachea midline Chest-clear to auscultation. No rales, wheezing or rhonchi Cardiac-regular rate and rhythm, normal S1 and S2 Abdomen-normal bowel sounds, no hepatosplenomegaly Extremities-no cyanosis, clubbing, or edema Neuro-cranial nerves II through XII intact, motor and sensory function within normal limits, strength symmetrical, no focal deficits Psych-normal affect, normal mood Results & Data Results & Data Vital Signs (Past 12 Hours) Vital Signs Temp Pulse Resp BP Pulse Ox O2 Del Method 08/04/23 09:00 61 17 132/69 97 08/04/23 08:00 56 L 15 134/65 99 08/04/23 07:33 70 19 132/70 95 08/04/23 07:23 60 08/04/23 07:05 96 Room Air 08/04/23 06:30 36 C L 63 18 144/85 H 96 Room Air Laboratory Results 08/04/23 06:44 08/04/23 06:44 Code Status & VTE Plan Code Status Full code PG Care Time/CCT Total # of Minutes Spent Total Time Spent with Patient: Total time spent is greater than 50% in coordination of care (as documented) at patient's floor/unit and/or counseling patient: Coding Level of Care Code 27240 INT INP/OBS CARE 3/75MIN Diagnoses Acute lower GI bleeding K92.2 H/O aortic valve replacement Z95.2 HTN (hypertension), benign I10 Prostate cancer C61 Hyperlipidemia E78.5
[2023-08-04 09:56] LABS: iSTAT Creatinine 2.1 mg/dl (0.6-1.3); iSTAT Hemoglobin 11.6 g/dl (14.0-18.0); iSTAT Ionized Calcium 1.13 mmol/l (1.12-1.32); iSTAT Potassium 4.9 mmol/L (3.3-5.0)
[2023-08-04] MEDS ORDERED: ONDANSETRON INJ 2 MG/ML 2 ML VIAL IV PRN (12:34)
[2023-08-04] MEDS: SODIUM CHLORIDE 0.9% 1,000 ML IV SCH (12:47)
[2023-08-04 13:33] LABS: Basophils # (auto) 0.05 K/uL (0.00-0.20); Basophils % (auto) 0.9 %; Eosinophils # (auto) 0.38 K/uL (0.00-0.50); Eosinophils % (auto) 6.8 %; Hematocrit (blood only) 35.7 % (42.0-52.0); Hemoglobin 12.1 g/dl (14.0-18.0); Immature Granulocytes # (auto) 0.02 K/uL (0.01-0.20); Immature Granulocytes % (auto) 0.4 %; Mean Corpuscular Hemoglobin 33.3 pg (25.0-34.0); Mean Corpuscular Hgb Conc 33.9 g/dL (32.0-36.0); Mean Corpuscular Volume 98.3 fL (80.0-100.0); Mean Platelet Volume 9.8 fL (9.4-12.4); Monocytes # (auto) 0.56 K/uL (0.11-0.59); Monocytes % (auto) 10.1 %; Neutrophils # (auto) 3.55 K/uL (1.40-6.50); Neutrophils % (auto) 63.8 %; Platelet Count 191 K/uL (130-400); RDW Coefficient of Variation 13.9 % (11.5-14.5); RDW Standard Deviation 50.6 fL (36.4-46.3); Red Blood Count 3.63 M/uL (4.70-6.10); White Blood Count 5.56 K/ul (4.8-10.8)
--- NOTE | 2023-08-04 13:36 | XRay Report ---
XR chest 1V portable HISTORY: 78 years-old Male GIB acute GI bleed COMPARISON: 06/25/2022 TECHNIQUE: AP view of the chest FINDINGS: Cardiac silhouette is enlarged. Median sternotomy. Lungs are clear. No pneumothorax or pleural effusi on. Bones appear grossly intact. IMPRESSION: Cardiomegaly without acute process. ACT 112: Negative or not required by law. The above report was generated using voice recognition software. It may contain grammatical, syntax o r spelling errors. Electronically signed by: Agustin Malone M.D. 08/04/2023 1:35 PM
[2023-08-04 13:48] LABS: BUN Creatinine Ratio 16.8 (10-20); Calcium 8.9 mg/dl (8.6-10.3); Creatinine Clr Calc Pharmacy 33.9 ml/min; Est GFR (African American) 39.2 ml/min; Est GFR (Non-African American) 33.9 ml/min; Potassium 4.5 mmol/L (3.5-5.1)
[2023-08-04] MEDS: bisacodyL 5 MG TABEC PO ONE (14:24)
[2023-08-04 14:50] LABS: Hematocrit (blood only) 35.2 % (42.0-52.0)
[2023-08-04] MEDS: POLYETHYLENE (MIRALAX) 17 GM PACK PO SCH (19:27)
[2023-08-04] MEDS: PANTOprazole 40 MG in SYRINGE 0 ML IV SCH (20:42)
[2023-08-05 06:46] LABS: Basophils # (auto) 0.05 K/uL (0.00-0.20); Basophils % (auto) 0.9 %; Eosinophils # (auto) 0.39 K/uL (0.00-0.50); Eosinophils % (auto) 6.8 %; Hematocrit (blood only) 34.3 % (42.0-52.0); Hemoglobin 11.7 g/dl (14.0-18.0); Immature Granulocytes # (auto) 0.02 K/uL (0.01-0.20); Immature Granulocytes % (auto) 0.3 %; Lymphocytes # (auto) 1.02 K/uL (1.20-3.40); Lymphocytes % (auto) 17.7 %; Mean Corpuscular Hemoglobin 33.6 pg (25.0-34.0); Mean Corpuscular Hgb Conc 34.1 g/dL (32.0-36.0); Mean Corpuscular Volume 98.6 fL (80.0-100.0); Monocytes # (auto) 0.64 K/uL (0.11-0.59); Monocytes % (auto) 11.1 %; Neutrophils # (auto) 3.63 K/uL (1.40-6.50); Neutrophils % (auto) 63.2 %; Platelet Count 185 K/uL (130-400); RDW Standard Deviation 50.9 fL (36.4-46.3); Red Blood Count 3.48 M/uL (4.70-6.10); White Blood Count 5.75 K/ul (4.8-10.8)
[2023-08-05 07:10] LABS: Anion Gap 5 (3-11); BUN Creatinine Ratio 15.2 (10-20); Blood Urea Nitrogen 25 mg/dl (6-23); Calcium 8.5 mg/dl (8.6-10.3); Carbon Dioxide 23 mmol/L (21-32); Chloride 112 mmol/L (98-107); Creatinine Clr Calc Pharmacy 38.1 ml/min; Est GFR (African American) 45.1 ml/min; Est GFR (Non-African American) 38.9 ml/min; Glucose 94 mg/dl (70-99(Fasting)); Sodium 140 mmol/L (136-145)
[2023-08-05 07:34] VITALS: TEMP 97.7
--- NOTE | 2023-08-05 09:12 | History & Physical Bridge Note ---
Date of Service August 05, 2023 History & Physical Bridge Note I have reviewed the History & Physical and in the interval since the performance of the History & Physical I have noted the following changes of clinical significance: no changes noted Keep NPO & proceed with colonoscopy today.
--- NOTE | 2023-08-05 11:33 | Gastrointestinal Consultation ---
Date of Consultation August 05, 2023 Assessment & Plan (1) Acute lower GI bleeding: -Continue to monitor H/H -Patient has completed a bowel prep and remains NPO -Colonoscopy for further evaluation today History of Present Illness Reason for Consultation: GI bleed on Coumadin Attending Physician: Sana Dawson MD History of Present Illness Patient is an 78 yo male who presented to the ED at [facility] due to rectal bleeding. He notes an abrupt onset of painless rectal bleeding. He notes he was seeing dark red stool along with bright red blood. He denies abdominal pain, bloating, rectal pain, or any other issues. He notes that there was a pressure sensation prior to the bleeding. He has had a colonoscopy in the past (he estimates 2-3 years ago) and notes that he had polyps noted. He denies pertinent family history. He notes that he has had radiation therapy for prostate cancer in the past. No chest pain or shortness of breath. His H/H was 11.7/34.3 thtis AM. BUN 25. Cr 1.64. He completed a bowel preparation for a colonoscopy. He notes liquid stools at present and has been NPO since prior to midnight last night. CT abdomen/pelvis performed in ED: 1. No acute intra-abdominal or intrapelvic abnormality. 2. Colonic diverticulosis. 3. Cholelithiasis. 4. Small fat filled midline abdominal wall hernia. 5. Numerous complex and simple renal cysts redemonstrated. 6. Additional findings as above. Allergies Allergy/AdvReac Type Severity Reaction Status Date / Time No Known Allergies Allergy Verified 08/04/23 08:19 Home Medications Medication Instructions Recorded Confirmed Type cyanocobalamin (vitamin B-12) 1,000 mcg PO QAM ##0 11/10/14 08/04/23 History 1,000 mcg tablet multivitamin 1 tab PO QAM ##0 11/10/14 08/04/23 History calcium carbonate (Calcium 600) 600 mg PO QAM 02/03/20 08/04/23 History glucosamine 750 [id number]-swe 1 tab PO BID 02/03/20 08/04/23 History no1 644 mg-C 30 mg-galindo 1 mg tablet (Osteo Bi-Flex Triple Strength) diphenhydramine 25 1 tab PO HS 07/15/21 08/04/23 History mg-acetaminophen 500 mg tablet (Tylenol PM Extra Strength) losartan 100 mg tablet 100 mg PO QAM 07/15/21 08/04/23 History simvastatin 20 mg tablet 20 mg PO HS 07/15/21 08/04/23 History amlodipine 2.5 mg tablet 2.5 mg PO HS 08/01/21 08/04/23 History cholecalciferol (vitamin D3) 125 125 mcg PO QAM 05/24/22 08/04/23 History mcg (5,000 unit) tablet (Vitamin D3) hydrochlorothiazide 25 mg tablet 12.5 mg PO WK 05/24/22 08/04/23 History magnesium oxide 500 mg PO QAM 05/24/22 08/04/23 History zinc gluconate 50 mg tablet 50 mg PO QAM 05/24/22 08/04/23 History spironolactone 25 mg tablet 12.5 mg PO 3XWK 05/31/22 08/04/23 History docusate sodium 100 mg capsule 100 mg PO HS 08/14/22 08/04/23 History (Stool Softener) warfarin 5 mg tablet 5 mg PO QPM 01/31/23 08/04/23 History lotilaner 0.25 % eye drops (Xdemvy) 1 drp OPB BID 08/04/23 08/04/23 History Patient History Medical History First degree AV block History of COVID-19 02/2022--mild symptoms, no symptoms now Malfunction of Cruz catheter Chronic anticoagulation warfarin daily due to AVR Skin cancer Basal cell per pt Benign prostatic hyperplasia with urinary obstruction and other lower urinary tract symptoms 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 Sister Natural with unknown cause Other No family history of adverse response to anesthesia Social History Smoking Status: Former smoker Tobacco Type: Cigarettes Second Hand Exposure: No; Do You Dip or Chew Tobacco: No; Hx Alcohol Use: Yes Alcohol type: beer and hard liquor Hx Substance Use: No Preferred Language: Armenian Communication Ability: Effective Visual Impairment: No Limitations Hearing Ability: Normal Supervisor Major Appliance Assembly Required: No Beliefs That Will Affect Care: Adventist Adventist Beliefs: Baptism marital status: Current Living Situation: Spouse current occupational status: retired current occupation: [employer] Feels Safe at Home: Yes Diet: other caffeine: Yes (2 cups/day) during the past year weight has: remained stable Assistive Devices: None Review of Systems Constitutional: no fever and no chills Respiratory: no cough and no dyspnea Cardiovascular: no chest pain Gastrointestinal: + blood in stools; no abdominal pain, no coffee ground emesis, no change in bowel habits, no constipation and no diarrhea/loose stools Physical Exam Constitutional: well developed Respiratory: normal respiratory effort Cardiovascular: Rate/Rhythm: regular rate Gastrointestinal (Abdomen): Inspection/Auscultation: abdomen normal to inspection Psychiatric: Orientation: alert and oriented x 3 Results & Data Vital Signs (Past 12 Hours) Vital Signs Temp Pulse Pulse Resp BP BP Pulse Ox 08/05/23 10:50 36.5 C 65 18 127/69 96 08/05/23 07:33 36.5 C 56 L 16 141/72 H 96 08/05/23 07:06 66 08/05/23 03:50 36.3 C L 85 16 155/89 H 97 O2 Del Method 08/05/23 10:50 Room Air 08/05/23 07:33 Room Air 08/05/23 07:06 08/05/23 03:50 Room Air PG Care Time/CCT Total # of Minutes Spent Total Time Spent with Patient: Total time spent is greater than 50% in coordination of care (as documented) at patient's floor/unit and/or counseling patient: Coding Level of Care Code 11628 INT INP/OBS CARE 3/75MIN Diagnoses Acute lower GI bleeding K92.2
--- NOTE | 2023-08-05 12:12 | Cardiology Consultation ---
Date of Consultation August 05, 2023 Assessment & Plan (1) Acute lower GI bleeding: (2) H/O aortic valve replacement: Plan Patient is an 78-year-old male who underwent aortic valve replacement for severe aortic insufficiency and aortic root replacement 30 years prior. Mechanical valve with [place] bileaflet tilting disc prosthesis. Remote concerns regarding possible embolic phenomena no recent complaint Recommendations: Assess GI bleed as planned. Would minimize warfarin hold, follow INR. Goal ultimately to resume anticoagulation with warfarin. Will follow History of Present Illness Attending Physician: Sana Dawson MD History of Present Illness 78-year-old male with complex cardiac history admitted with lower GI bleeding underlying cardiac concerns 1. Severe aortic valve insufficiency secondary to marked aortic root dilation, cystic medial necrosis a. Status post aortic valve replacement and aortic root replacement with Saint Viet 25 mm aortic root conduit 09/01/1993. i. Cad Librarian Identification Card Information: Masters Series Mechanical Valved Graft. Serial Number [id number]. Model Number [id number] 2. Crohn's disease 3. Hyperlipidemia 4. CKD stage 3 5. Hypertension 6. Ascending aortic enlargement 7. Recurrent epistaxis, status post left anterior septum cauterization 09/12/2022 by ENT 8. History of radiation cystitis, follows with Urology Patient referred now having developed acute lower GI bleeding on bowel movement day prior. Notes no further recurrence of hematochezia. No recent issues of bleeding. INR therapeutic No chest pains, tachypalpitations, dizziness or lightheadedness Prior history of Crohn disease without recent flare No fevers chills unexplained infection No dizziness lightness syncope or near syncope Plans for potential colonoscopy later today Recent echocardiogram performed as below demonstrates normally functioning mechanical aortic valve, stable ascending aortic enlargement Allergies Allergy/AdvReac Type Severity Reaction Status Date / Time No Known Allergies Allergy Verified 08/04/23 08:19 Home Medications Medication Instructions Recorded Confirmed Type cyanocobalamin (vitamin B-12) 1,000 mcg PO QAM ##0 11/10/14 08/04/23 History 1,000 mcg tablet multivitamin 1 tab PO QAM ##0 11/10/14 08/04/23 History calcium carbonate (Calcium 600) 600 mg PO QAM 02/03/20 08/04/23 History glucosamine 750 vo-[id number]-dom 1 tab PO BID 02/03/20 08/04/23 History no1 644 mg-C 30 mg-galindo 1 mg tablet (Osteo Bi-Flex Triple Strength) diphenhydramine 25 1 tab PO HS 07/15/21 08/04/23 History mg-acetaminophen 500 mg tablet (Tylenol PM Extra Strength) losartan 100 mg tablet 100 mg PO QAM 07/15/21 08/04/23 History simvastatin 20 mg tablet 20 mg PO HS 07/15/21 08/04/23 History amlodipine 2.5 mg tablet 2.5 mg PO HS 08/01/21 08/04/23 History cholecalciferol (vitamin D3) 125 125 mcg PO QAM 05/24/22 08/04/23 History mcg (5,000 unit) tablet (Vitamin D3) hydrochlorothiazide 25 mg tablet 12.5 mg PO WK 05/24/22 08/04/23 History magnesium oxide 500 mg PO QAM 05/24/22 08/04/23 History zinc gluconate 50 mg tablet 50 mg PO QAM 05/24/22 08/04/23 History spironolactone 25 mg tablet 12.5 mg PO 3XWK 05/31/22 08/04/23 History docusate sodium 100 mg capsule 100 mg PO HS 08/14/22 08/04/23 History (Stool Softener) warfarin 5 mg tablet 5 mg PO QPM 01/31/23 08/04/23 History lotilaner 0.25 % eye drops (Xdemvy) 1 drp OPB BID 08/04/23 08/04/23 History Patient History Medical History First degree AV block History of COVID-19 02/2022--mild symptoms, no symptoms now Malfunction of Cruz catheter Chronic anticoagulation warfarin daily due to AVR Skin cancer Basal cell per pt Benign prostatic hyperplasia with urinary obstruction and other lower urinary tract symptoms 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 Feels Safe at Home: Yes Diet: other caffeine: Yes (2 cups/day) during the past year weight has: remained stable Assistive Devices: Glasses Physical Exam Constitutional: WD/WN, vitals as above no acute distress ENMT: external ear and nose normal, oropharynx normal Neck: trachea midline, no thyromegaly Respiratory: normal respiratory effort, lungs clear to auscultation Cardiovascular: Rate/Rhythm: regular rate and regular rhythm Heart Sounds: normal S1, normal S2 ([place] mechanical valve sounds) and + murmur Vessels: no JVD Extremities: no edema Gastrointestinal (Abdomen): normal bowel sounds, soft, nontender, no hepa tosplenomegaly Musculoskeletal: no cyanosis or clubbing, extremities motor strength 5/5 Results & Data Vital Signs (Past 12 Hours) Vital Signs Temp Pulse Pulse Resp BP BP Pulse Ox 08/05/23 10:50 36.5 C 65 18 127/69 96 08/05/23 07:33 36.5 C 56 L 16 141/72 H 96 08/05/23 07:06 66 08/05/23 03:50 36.3 C L 85 16 155/89 H 97 O2 Del Method 08/05/23 10:50 Room Air 08/05/23 07:33 Room Air 08/05/23 07:06 08/05/23 03:50 Room Air Laboratory Results Laboratory Results - last 24 hr 08/04/23 08/04/23 08/05/23 12:39 14:07 05:58 WBC 5.56 5.75 RBC 3.63 L 3.48 L Hgb 12.1 L 12.0 L 11.7 L Hct 35.7 L 35.2 L 34.3 L MCV 98.3 98.6 MCH 33.3 33.6 MCHC 33.9 34.1 RDW Std Deviation 50.6 H 50.9 H RDW Coeff of Skye 13.9 14.0 Plt Count 191 185 MPV 9.8 10.0 Immature Gran % (Auto) 0.4 0.3 Neut % (Auto) 63.8 63.2 Lymph % (Auto) 18.0 17.7 [place] % (Auto) 10.1 11.1 Eos % (Auto) 6.8 6.8 Baso % (Auto) 0.9 0.9 Neut # (Auto) 3.55 3.63 Lymph # (Auto) 1.00 L 1.02 L [place] # (Auto) 0.56 0.64 H Eos # (Auto) 0.38 0.39 Baso # (Auto) 0.05 0.05 Immature Gran # (Auto) 0.02 0.02 Sodium 139 140 Potassium 4.5 TNP Chloride 110 H 112 H Carbon Dioxide 26 23 Anion Gap 3 5 BUN 31 H 25 H Creatinine 1.84 H 1.64 H Est Cr Clr Drug Dosing 33.9 38.1 Est GFR ( Amer) 39.2 45.1 Est GFR (Non-Af Amer) 33.9 38.9 BUN/Creatinine Ratio 16.8 15.2 Glucose 99 94 Calcium 8.9 8.5 L 08/05/23 07:36 WBC RBC Hgb Hct MCV MCH MCHC RDW Std Deviation RDW Coeff of Skye Plt Count MPV Immature Gran % (Auto) Neut % (Auto) Lymph % (Auto) [place] % (Auto) Eos % (Auto) Baso % (Auto) Neut # (Auto) Lymph # (Auto) [place] # (Auto) Eos # (Auto) Baso # (Auto) Immature Gran # (Auto) Sodium Potassium 4.6 Chloride Carbon Dioxide Anion Gap BUN Creatinine Est Cr Clr Drug Dosing Est GFR ( Amer) Est GFR (Non-Af Amer) BUN/Creatinine Ratio Glucose Calcium Diagnostic Findings Echocardiogram 07/30/2023 The left ventricular cavity size is normal. The LV wall thickness is mildly increased (concentric). The septal motion is abnormal consistent with the post-operative state. The regional left ventricular wall motion is otherwise normal. The qualitative LV ejection fraction is 60-64% (normal). There is an aortic valve bileaftlet disc (St. Viet type) mechanical prosthesis present. The aortic valve prosthesis systolic gradients are normal for this type prosthesis. There is evidence of prior aortic root replacement. The aortic root is normal sized. The proximal ascending thoracic aorta is moderately enlarged. (4.6 cm) Compared to prior study of July 10, 2022, there is no significant change.
--- NOTE | 2023-08-05 12:48 | Gastrointestinal Consultation ---
Date of Consultation August 04, 2023 Assessment & Plan (1) Acute lower GI bleeding: Bleeding is likely from colonic diverticula. Radiation-induced proctitis is less likely as a cause of his bleeding. Plan Scheduled for colonoscopy tomorrow. The bleeding appears to be minor. Hopefully we can continue Coumadin. History of Present Illness Reason for Consultation: Rectal bleeding. Attending Physician: Jelani Clarke MD History of Present Illness Painless rectal bleeding since this morning. The patient had a bloody bowel movement at 6:00 this morning. Since that time he had 1 more episode of rectal bleeding. No abdominal pain, no nausea, no vomiting. The patient is on Coumadin for mechanical aortic valve replacement. His INR today was 3.1 and hemoglobin 12.1, unchanged from the baseline. The most recent colonoscopy was between 3 and 5 years ago performed at [facility]. The records are not available however as per patient a small polyp was removed. History of radiation therapy to prostate cancer approximately 3 years ago. Has remained hemodynamically stable in the emergency room, recent blood pressure 149/71 and heart rate of 66. Allergies Allergy/AdvReac Type Severity Reaction Status Date / Time No Known Allergies Allergy Verified 08/04/23 08:19 Home Medications Medication Instructions Recorded Confirmed Type cyanocobalamin (vitamin B-12) 1,000 mcg PO QAM ##0 11/10/14 08/04/23 History 1,000 mcg tablet multivitamin 1 tab PO QAM ##0 11/10/14 08/04/23 History calcium carbonate (Calcium 600) 600 mg PO QAM 02/03/20 08/04/23 History glucosamine 750 fn-psxnfhrrvmw-xha 1 tab PO BID 02/03/20 08/04/23 History no1 644 mg-C 30 mg-galindo 1 mg tablet (Osteo Bi-Flex Triple Strength) diphenhydramine 25 1 tab PO HS 07/15/21 08/04/23 History mg-acetaminophen 500 mg tablet (Tylenol PM Extra Strength) losartan 100 mg tablet 100 mg PO QAM 07/15/21 08/04/23 History simvastatin 20 mg tablet 20 mg PO HS 07/15/21 08/04/23 History amlodipine 2.5 mg tablet 2.5 mg PO HS 08/01/21 08/04/23 History cholecalciferol (vitamin D3) 125 125 mcg PO QAM 05/24/22 08/04/23 History mcg (5,000 unit) tablet (Vitamin D3) hydrochlorothiazide 25 mg tablet 12.5 mg PO WK 05/24/22 08/04/23 History magnesium oxide 500 mg PO QAM 05/24/22 08/04/23 History zinc gluconate 50 mg tablet 50 mg PO QAM 05/24/22 08/04/23 History spironolactone 25 mg tablet 12.5 mg PO 3XWK 05/31/22 08/04/23 History docusate sodium 100 mg capsule 100 mg PO HS 08/14/22 08/04/23 History (Stool Softener) warfarin 5 mg tablet 5 mg PO QPM 01/31/23 08/04/23 History lotilaner 0.25 % eye drops (Xdemvy) 1 drp OPB BID 08/04/23 08/04/23 History Patient History Medical History First degree AV block History of COVID-19 02/2022--mild symptoms, no symptoms now Malfunction of Cruz catheter Chronic anticoagulation warfarin daily due to AVR Skin cancer Basal cell per pt Benign prostatic hyperplasia with urinary obstruction and other lower urinary tract symptoms 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 Ear, Nose, Mouth, Throat: Denies mouth sores, soreness in the throat, visual disturbance. Respiratory: Denies cough, hemoptysis, shortness of breath. Cardiovascular: Additional Comments: Denies chest pain, palpitations. Gastrointestinal: Denies abdominal pain, nausea, vomiting, heartburn, dysphagia. Rectal bleeding as per history of present illness. Musculoskeletal: Denies arthralgias denies ambulatory dysfunction. Neurologic: Denies focal weakness, denies abnormal sensation, denies speech or visual disturbance. Psychiatric: Denies depression or anxiety Physical Exam Constitutional: Appears comfortable, not acutely distressed. ENMT: Oral mucosa without lesions. The neck is supple. No jugular venous distention. Respiratory: Clear lungs without wheezing. Cardiovascular: Regular, aortic valve click. Gastrointestinal (Abdomen): Soft, without tenderness, normal abdominal bowel sounds. There is a small incisional reducible hernia in the upper abdomen. No organomegaly. Musculoskeletal: No peripheral edema, no calf tenderness. Skin: Warm, good color, no jaundice. Neurologic: Awake, oriented x 3, no focal abnormalities. Speech is intact. Results & Data Vital Signs (Past 12 Hours) Vital Signs Temp Pulse Pulse Resp BP BP Pulse Ox 08/04/23 11:44 66 20 149/71 H 99 08/04/23 11:00 61 16 138/75 98 08/04/23 10:01 61 15 123/69 98 08/04/23 09:00 61 17 132/69 97 08/04/23 08:00 56 L 15 134/65 99 08/04/23 07:33 70 19 132/70 95 08/04/23 07:23 60 08/04/23 07:05 96 08/04/23 06:30 36 C L 63 18 144/85 H 96 O2 Del Method 08/04/23 11:44 Room Air 08/04/23 11:00 08/04/23 10:01 Room Air 08/04/23 09:00 08/04/23 08:00 08/04/23 07:33 08/04/23 07:23 08/04/23 07:05 Room Air 08/04/23 06:30 Room Air Laboratory Results Laboratory data reviewed. Diagnostic Findings CT scan findings: Colonic diverticulosis, no acute findings, multiple renal cysts, gallstones.
--- NOTE | 2023-08-05 14:10 | Anesthesiology Consultation ---
Date of Service August 05, 2023 Assessment & Plan Chart Review Chart Review: Acceptable Risk for Surgery and Patient NOT seen in Pre Admission Testing Consults Requested none History Surgery Operation Date: 08/05/23 17:00 Proposed Procedures p Colonoscopy Dr. Keara Sarah MD Height/Weight Height: 5 ft 5 in Weight: 95 kg Allergies Allergy/AdvReac Type Severity Reaction Status Date / Time No Known Allergies Allergy Verified 08/04/23 08:19 Medications Home Medications Medication Instructions Recorded Confirmed Last Taken cyanocobalamin (vitamin B-12) 1,000 mcg PO QAM ##0 11/10/14 08/04/23 08/03/23 1,000 mcg tablet multivitamin 1 tab PO QAM ##0 11/10/14 08/04/23 08/03/23 calcium carbonate (Calcium 600) 600 mg PO QAM 02/03/20 08/04/23 08/03/23 glucosamine 750 [id number] 1 tab PO BID 02/03/20 08/04/23 08/03/23 no1 644 mg-C 30 mg-galindo 1 mg tablet (Osteo Bi-Flex Triple Strength) diphenhydramine 25 1 tab PO HS 07/15/21 08/04/23 08/03/23 mg-acetaminophen 500 mg tablet (Tylenol PM Extra Strength) losartan 100 mg tablet 100 mg PO QAM 07/15/21 08/04/23 08/03/23 simvastatin 20 mg tablet 20 mg PO HS 07/15/21 08/04/23 08/03/23 amlodipine 2.5 mg tablet 2.5 mg PO HS 08/01/21 08/04/23 08/03/23 cholecalciferol (vitamin D3) 125 125 mcg PO QAM 05/24/22 08/04/23 08/03/23 mcg (5,000 unit) tablet (Vitamin D3) hydrochlorothiazide 25 mg tablet 12.5 mg PO WK 05/24/22 08/04/23 08/02/23 magnesium oxide 500 mg PO QAM 05/24/22 08/04/23 08/03/23 zinc gluconate 50 mg tablet 50 mg PO QAM 05/24/22 08/04/23 08/03/23 spironolactone 25 mg tablet 12.5 mg PO 3XWK 05/31/22 08/04/23 08/02/23 docusate sodium 100 mg capsule 100 mg PO HS 08/14/22 08/04/23 08/03/23 (Stool Softener) warfarin 5 mg tablet 5 mg PO QPM 01/31/23 08/04/23 08/03/23 lotilaner 0.25 % eye drops (Xdemvy) 1 drp OPB BID 08/04/23 08/04/23 08/03/23 Active Medications Generic Name Dose Route Start Last Admin Trade Name [place] PRN Reason Stop Dose Admin Sodium Chloride 1,000 mls @ 80 mls/hr 08/04/23 12:34 08/05/23 02:03 Nss IV 09/03/23 12:33 80 mls/hr .[id number] MEET Administration Pantoprazole Sodium 40 mg/ 10 mls @ 5 mls/min 08/04/23 21:00 08/05/23 08:15 Syringe IV 09/03/23 20:59 5 mls/min BID MEET Administration NPO Date Last Intake of Fluids: 08/05/23 Time Last Intake of Fluids: 04:00 Date Last Intake of Solids: 08/03/23 Time Last Intake of Solids: 18:00 Past Medical History Medical History First degree AV block History of COVID-19 02/2022--mild symptoms, no symptoms now Malfunction of Cruz catheter Chronic anticoagulation warfarin daily due to AVR Skin cancer Basal cell per pt Benign prostatic hyperplasia with urinary obstruction and other lower urinary tract symptoms 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 Sister Natural with unknown cause Other No family history of adverse response to anesthesia Past Surgical History Surgical History History of right knee surgery History of colonoscopy History of Mohs micrographic surgery for skin cancer Hx of cataract surgery Bilateral Hx of cystoscopy multiple History of bladder surgery Social History Smoking Status: Former smoker Do You Dip or Chew Tobacco: No Hx Alcohol Use: Yes Alcohol type: beer and hard liquor alcohol intake frequency: a few times a month Hx Substance Use: No substance use type: does not use Review of Systems Constitutional: no fever and no chills Respiratory: no cough and no dyspnea Cardiovascular: no chest pain Gastrointestinal: + blood in stools; no abdominal pain, no coffee ground emesis, no change in bowel habits, no constipation and no diarrhea/loose stools Physical Exam Vital Signs Last Vital Signs Temp 36.5 C 08/05/23 13:58 Pulse 60 08/05/23 13:58 Resp 18 08/05/23 13:58 BP 156/59 H 08/05/23 13:58 Pulse Ox 97 08/05/23 13:58 O2 Del Method Room Air 08/05/23 13:58 Constitutional WD/WN, vitals as above well developed; no acute distress ENMT external ear and nose normal, oropharynx normal Neck trachea midline, no thyromegaly Respiratory normal respiratory effort, lungs clear to auscultation normal respiratory effort Cardiovascular Rate/Rhythm: regular rate and regular rhythm Heart Sounds: normal S1, normal S2 ([place] mechanical valve sounds) and + murmur Vessels: no JVD Extremities: no edema Gastrointestinal (Abdomen) normal bowel sounds, soft, nontender, no hepatosplenomegaly Inspection/Auscultation: abdomen normal to inspection Musculoskeletal no cyanosis or clubbing, extremities motor strength 5/5 Psychiatric Orientation: alert and oriented x 3 Testing Laboratory Results 08/05/23 05:58 08/05/23 07:36 PT 30.8 Seconds (9.0-12.0) H 08/04/23 06:44 INR 3.1 (0.9-1.1) H 08/04/23 06:44 APTT 40 Seconds (21-31) H 08/04/23 06:44 Urine Color Yellow 08/04/23 09:14 Urine Appearance Clear (Clear) 08/04/23 09:14 Urine pH 6.0 (4.5-7.5) 08/04/23 09:14 Ur Specific [place] 1.039 (1.000-1.030) H 08/04/23 09:14 Urine Protein Negative (Negative) 08/04/23 09:14 Urine Glucose (UA) Negative (Negative) 08/04/23 09:14 Urine Ketones Negative (Negative) 08/04/23 09:14 Urine Nitrite Negative (Negative) 08/04/23 09:14 Ur Leukocyte Esterase Negative (Negative) 08/04/23 09:14 Urine WBC (Auto) 0-5 /hpf (0-5) 08/04/23 09:14 Urine RBC (Auto) 3-5 /hpf (0-2) H 08/04/23 09:14 U Hyaline Cast (Auto) 0-2 /lpf (0-2) 08/04/23 09:14 U Epithel Cells (Auto) 0-2 /hpf (0-2) 08/04/23 09:14 Urine Bacteria (Auto) None Seen (None Seen) 08/04/23 09:14 Blood Type O Positive 08/04/23 06:50 Antibody Screen NEGATIVE 08/04/23 06:50
--- NOTE | 2023-08-05 15:12 | GI REPORT ---
[facility] Patient: KSENIA HAUSER : 1945 Sex at : Male Age: 78 Years Procedure: Colonoscopy Date: 08/05/2023 Attending Physician: Isidro Sarah MD Referring MD: Sana Dawson Md Indications: - Rectal bleeding Medications: - Monitored Anesthesia Care Complications: - No immediate complications. Estimated Blood Loss: - Estimated blood loss: none. Procedure: - Prior to the procedure, a History and Physical was performed, and patient medications and allergies were reviewed. The patient's tolerance of previous anesthesia was also reviewed. The risks and benefits of the procedure and the sedation options and risks were discussed with the patient. All questions were answered, and informed consent was obtained. Prior Anticoagulants: The patient has taken Coumadin (warfarin) [Days Prior to Procedure]. [ASA Grade]. After reviewing the risks and benefits, the patient was deemed in satisfactory condition to undergo the procedure. - The pediatric colonoscope was introduced through the anus and advanced to the cecum, identified by appendiceal orifice and ileocecal valve. - The colonoscopy was performed without difficulty. Findings: - The perianal examination was normal. - Patchy mild inflammation characterized by altered vascularity and congestion (edema) was found in the distal rectum. Coagulation for hemostasis using argon plasma at 1 liter/minute and 30 wilkes was successful. - Four sessile polyps were found in the ascending colon and transverse colon. The polyps were small (4-6 mm) in size. These polyps were removed with a cold snare. Resection was complete, and retrieval was complete. - There was a small lipoma, 10 in diameter, in the ascending colon. Impression: - Patchy mild inflammation was found in the distal rectum secondary to radiation proctitis. Treated with argon plasma coagulation (APC). - Four small (4-6 mm) polyps in the ascending colon and in the transverse colon, removed with a cold snare. Resected and retrieved. - Small lipoma in the ascending colon. Recommendation: - Continue present medications. - Repeat colonoscopy in 5 years for surveillance of multiple polyps. - Return to GI office in if bleeding recurs. Procedure Code(s): - 09277-65, Colonoscopy, flexible; with control of bleeding, any method - 81221, Colonoscopy, flexible; with removal of tumor(s), polyp(s), or other lesion(s) by snare technique Diagnosis Code(s): - K62.5, Hemorrhage of anus and rectum - K62.7, Radiation proctitis - D12.2, Benign neoplasm of ascending colon - D12.3, Benign neoplasm of transverse colon (hepatic flexure or splenic flexure) - D17.5, Benign lipomatous neoplasm of intra-abdominal organs CPT(R) - 2023 copyright [employer]. All Rights Reserved. The CPT codes, CCI edits and ICD codes generated are intended as suggestions and were generated based on input data. These codes are preliminary and upon molded rubber goods cutter review may be revised to meet current compliance and payer requirements. The provider is responsible for the final determination of appropriate codes, and modifiers. Isidro Sarah M.D. This document has been electronically signed. Note Initiated:08/05/2023 Note Completed:08/05/2023 3:11 PM \\[email or web address]\[email or web address]\[id number]
--- NOTE | 2023-08-05 15:13 | Communication Note ---
Date of Service: August 05, 2023 Colonoscopy showed mild radiation-induced proctitis with minor oozing. Successfully treated with argon plasma coagulation. Few small polyps and small lipoma. Otherwise normal. OK to discharge. Continue coumadin. Follow up with GI if sx recur.
[2023-08-05] MEDS: LIDOCAINE 2% 2 ML VIAL/AMP(20MG/ML) INFIL ONE (15:40)
[2023-08-05] MEDS: PROPOFOL IV EMULSION 10 MG/ML 20 ML VIAL IV ONE (15:40)
--- NOTE | 2023-08-05 16:28 | Anesthesiology Progress Note ---
Date of Service August 05, 2023 Anesthesia Post Procedure Vital Signs Vital Signs: Temp Pulse Pulse Pulse Resp BP BP 08/05/23 15:51 60 08/05/23 15:50 36.5 C 57 L 16 92/65 L 08/05/23 15:25 67 16 153/80 H 08/05/23 15:10 62 16 139/77 08/05/23 14:55 59 L 16 120/67 08/05/23 13:58 36.5 C 60 18 156/59 H 08/05/23 10:50 36.5 C 65 18 08/05/23 07:33 36.5 C 56 L 16 141/72 H 08/05/23 07:06 66 08/05/23 03:50 36.3 C L 85 16 155/89 H 08/04/23 22:27 36.5 C 64 18 130/71 08/04/23 22:01 72 08/04/23 19:26 36.6 C 70 18 143/76 H 08/04/23 17:50 58 L 19 156/74 H 08/04/23 17:00 36.7 C 69 20 148/73 H BP Pulse Ox O2 Del Method 08/05/23 15:51 08/05/23 15:50 97 Room Air 08/05/23 15:25 97 Room Air 08/05/23 15:10 96 Room Air 08/05/23 14:55 96 Room Air 08/05/23 13:58 97 Room Air 08/05/23 10:50 127/69 96 Room Air 08/05/23 07:33 96 Room Air 08/05/23 07:06 08/05/23 03:50 97 Room Air 08/04/23 22:27 94 Room Air 08/04/23 22:01 08/04/23 19:26 96 Room Air 08/04/23 17:50 98 08/04/23 17:00 97 Room Air Transfer of Care Handoff Completed per policy Notes Mental Status: alert / awake / arousable and participated in evaluation Patient Amnestic to Procedure: Yes Nausea / Vomiting: adequately controlled Pain: adequately controlled Airway Patency, RR, SpO2: stable & adequate BP & HR: stable & adequate Hydration State: stable & adequate Anesthetic Complications: no major complications apparent and Pt Satisfied with anesthetic care
[2023-08-05 16:33] VITALS: RESP 18; O2SAT 95
--- NOTE | 2023-08-05 17:11 | Communication Note ---
Date of Service: August 05, 2023 By CMS guidelines, a determination that the admission or continued stay is not medically necessary has been made by a member of the UR committee and a phys ician for this hospital stay, therefore a Code 44 will be completed and the Inpatient admission will be changed to outpatient.
--- NOTE | 2023-08-05 17:16 | Discharge Summary ---
Discharge Summary Date of Service August 05, 2023 Principal Dx & Hospital Course #1 = Principal Diagnosis (1) Acute lower GI bleeding: P/w BRBPR, found to have radiation proctitis oozing on colonoscopy, treated with Argon laser tx Otherwise a few colon polyps removed and bx pending at discharge. Hemodynamically stable hgb only dropped 1 gram to 11.7 which may have been dilutional from IVFs Held one dose of coumadin and ok to resume home coumadin this evening and discharge to home on low fiber diet Appreciate GI consult (2) Radiation proctitis: as above (3) H/O aortic valve replacement: Completed in the . He takes Coumadin chronically. 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 He denies lightheadedness or syncope. No hematemesis. He is on Coumadin chronically for mechanical aortic valve replacement that was done many years ago. He also has a history of radiation therapy for prostate cancer but this was completed years ago and he unlikely has radiation induced proctitis at this point. This most likely represents a diverticular bleed. He is currently hemodynamically stable. He sees [facility] cardiology in consultation is pending. Serial labs ordered. Discharge Exam Constitutional WD/WN, vitals as above Respiratory normal respiratory effort, lungs clear to auscultation Cardiovascular Rate/Rhythm: regular rate and regular rhythm Heart Sounds: + click; no murmur Extremities: no edema Gastrointestinal (Abdomen) normal bowel sounds, soft, nontender, no hepatosplenomegaly Psychiatric A+Ox3, euthymic affect Updated Medication List Medication Instructions Recorded Confirmed Type cyanocobalamin (vitamin B-12) 1,000 mcg PO QAM ##0 11/10/14 08/04/23 History 1,000 mcg tablet multivitamin 1 tab PO QAM ##0 11/10/14 08/04/23 History calcium carbonate (Calcium 600) 600 mg PO QAM 02/03/20 08/04/23 History glucosamine 750 [id number]-ska 1 tab PO BID 02/03/20 08/04/23 History no1 644 mg-C 30 mg-galindo 1 mg tablet (Osteo Bi-Flex Triple Strength) diphenhydramine 25 1 tab PO HS 07/15/21 08/04/23 History mg-acetaminophen 500 mg tablet (Tylenol PM Extra Strength) losartan 100 mg tablet 100 mg PO QAM 07/15/21 08/04/23 History simvastatin 20 mg tablet 20 mg PO HS 07/15/21 08/04/23 History amlodipine 2.5 mg tablet 2.5 mg PO HS 08/01/21 08/04/23 History cholecalciferol (vitamin D3) 125 125 mcg PO QAM 05/24/22 08/04/23 History mcg (5,000 unit) tablet (Vitamin D3) hydrochlorothiazide 25 mg tablet 12.5 mg PO WK 05/24/22 08/04/23 History magnesium oxide 500 mg PO QAM 05/24/22 08/04/23 History zinc gluconate 50 mg tablet 50 mg PO QAM 05/24/22 08/04/23 History spironolactone 25 mg tablet 12.5 mg PO 3XWK 05/31/22 08/04/23 History docusate sodium 100 mg capsule 100 mg PO HS 08/14/22 08/04/23 History (Stool Softener) warfarin 5 mg tablet 5 mg PO QPM 01/31/23 08/04/23 History lotilaner 0.25 % eye drops (Xdemvy) 1 drp OPB BID 08/04/23 08/04/23 History Hospital Stay Data Consultations 08/04/23 08:54 ED Decision to Admit Stat 08/04/23 12:34 Consult Cardiology Routine Consult Gastroenterology Routine Procedures Performed Operation Date: 08/05/23 17:00 Actual Procedures p Colonoscopy Polypectomy - Isidro Sarah MD Diagnostic Imagining Performed 08/04/23 06:50 CT abd pelvis IV con only Stat Pending Results Patient Have Any Pending Studies at Discharge: Yes (colon polyp biopsies) Discharge Instructions Given to Patient (Per Discharging Provider) You were admitted with rectal bleeding and found to have radiation proctitis on your colonoscopy. This was treated with a laser and the bleeding was stopped. You missed one dose of your Coumadin on Saturday, but it is fine to just resume your usual dosing and have your INR checked next week as scheduled at the Coumadin clinic. You should remain on a low fiber diet for now until your doctor tells you it is safe to resume a normal diet. Total Time Total Time Spent Total Time Spent (In Minutes): 35 min Total Time Includes: Examination of the Patient, Discharge Planning and Medication Reconciliation Coding Level of Care Code 31813 INP/OBS DISCH >30 MIN Diagnoses Acute lower GI bleeding K92.2 Radiation proctitis K62.7 H/O aortic valve replacement Z95.2 HTN (hypertension), benign I10 Prostate cancer C61 Hyperlipidemia E78.5 CKD (chronic kidney disease) stage 3, GFR 30-59 ml/min N18.30
[2023-08-05 17:43] VITALS: BP 161/70
[2023-08-05] MEDS: WARFARIN SOD 5 MG TAB PO SCH (17:43)
[2023-08-05] MEDS: SPIRONOLACTONE 12.5 MG TAB PO SCH (17:43)
[2023-08-05 17:53] VITALS: PULSE 67
[2023-08-05] MEDS ORDERED: ACETAMINOPHEN 500 MG TAB PO SCH (21:00)
[2023-08-05] MEDS ORDERED: amLODIPine BESYLATE 5 MG TAB PO SCH (21:00)
[2023-08-05] MEDS ORDERED: diphenhydrAMINE Capsule 25 MG CAP PO SCH (21:00)
[2023-08-05] MEDS ORDERED: SIMVASTATIN 20 MG TAB PO SCH (21:00)
[2023-08-06] MEDS ORDERED: CALCIUM CARBONATE 1250MG TAB PO SCH (09:00)
[2023-08-06] MEDS ORDERED: LOSARTAN POTASSIUM 50 MG TAB PO SCH (09:00)
[2023-08-06] MEDS ORDERED: CYANOCOBALAMIN (B-12) 500 MCG TABLET PO SCH (09:00)
[2023-08-06] MEDS ORDERED: ZINC SULFATE 220 MG CAPSULE PO SCH (09:00)
[2023-08-06] MEDS ORDERED: CHOLECALCIFEROL 125 MCG (5,000 UNITS) TAB PO SCH (09:00)
[2023-08-06] MEDS ORDERED: MAGNESIUM OXIDE 400 MG TAB PO SCH (09:00)
== END 2023-08-05 18:41 | disposition home or self-care (01) ==
LOC: ED 06:15 → INTOOBSV 09:36 → EDINP 09:36 → SUATTDRO 09:36 → 2N 17:51

== ENCOUNTER 2024-03-05 17:21 | Observation (INO) ==
[2024-03-05 18:26] LABS: Basophils # (auto) 0.04 K/uL (0.00-0.20); Basophils % (auto) 0.7 %; Eosinophils # (auto) 0.38 K/uL (0.00-0.50); Eosinophils % (auto) 6.2 %; Hematocrit (blood only) 39.7 % (42.0-52.0); Hemoglobin 13.5 g/dl (14.0-18.0); Immature Granulocytes # (auto) 0.03 K/uL (0.01-0.20); Immature Granulocytes % (auto) 0.5 %; Lymphocytes # (auto) 1.47 K/uL (1.20-3.40); Mean Corpuscular Hemoglobin 32.9 pg (25.0-34.0); Mean Corpuscular Volume 96.8 fL (80.0-100.0); Mean Platelet Volume 9.6 fL (9.4-12.4); Monocytes # (auto) 0.75 K/uL (0.11-0.59); Monocytes % (auto) 12.3 %; Neutrophils # (auto) 3.45 K/uL (1.40-6.50); Neutrophils % (auto) 56.3 %; Platelet Count 217 K/uL (130-400); RDW Coefficient of Variation 13.8 % (11.5-14.5); White Blood Count 6.12 K/ul (4.8-10.8)
[2024-03-05 18:30] LABS: Alanine Aminotransferase 13 U/L (7-52); Albumin Globulin Ratio 1.9 (0.9-2); Albumin Level 4.6 gm/dl (3.4-5.0); Alkaline Phosphatase 65 U/L (34-104); Anion Gap 4 (3-11); Aspartate Aminotransferase 20 U/L (13-39); BUN Creatinine Ratio 14.4 (10-20); Bilirubin,Total 0.6 mg/dl (0.2-1.0); Blood Urea Nitrogen 28 mg/dl (6-23); Calcium 9.8 mg/dl (8.6-10.3); Carbon Dioxide 29 mmol/L (21-32); Chloride 106 mmol/L (98-107); Globulin 2.4 gm/dl (2.5-4.0); Glucose 103 mg/dl (70-99(Fasting)); Potassium 4.5 mmol/L (3.5-5.1); Sodium 139 mmol/L (136-145)
[2024-03-05 18:53] LABS: INR 3.4 (0.9-1.1); Partial Thromboplastin Ratio 1.5; Partial Thromboplastin Time 40 Seconds (21-31); Prothrombin Time 32.9 Seconds (9.0-12.0)
--- NOTE | 2024-03-05 19:39 | Emergency Department Note ---
Impression & Plan Gross hematuria ED Provider Note HISTORY OF PRESENT ILLNESS: Patient is an 78-year-old male presenting with gross hematuria. Patient reports that about 1 hour prior to arrival in the emergency department he started soaking multiple depends with bright red bloody urine. He denies any injury to his abdomen or penis. He states that this happened previously as he has a history of bladder cancer and prostate issues. He does take Coumadin for history of a mechanical valve replacement. He had an INR checked this morning and had an ultrasound of his kidneys this morning and when he got home he started bleeding. He denies any dysuria. He denies any abdominal pain, nausea or vomiting. Denies any recent fevers. ROS: as above PHYSICAL EXAM: Constitutional: Patient appears in no acute distress. HENT: Head: Normocephalic and atraumatic. Eyes: EOMI, PERRL Mouth/Throat: Mucous membranes moist. Neck: Trachea midline. Neck supple. Cardiovascular: RRR, No murmurs, rubs or gallops. Intact distal pulses. Pulmonary/Chest: No respiratory distress. Breath sounds clear and equal bilaterally. No wheezes or rales. Abdominal: Abdomen soft, no tenderness, rebound or guarding. Musculoskeletal: No edema, tenderness or deformity noted. Skin: Warm and dry. No rash, erythema, pallor or cyanosis Psychiatric: Appropriate mood and affect for situation. Neurological: Alert and keenly responsive. CN II-XII grossly intact, moving all extremities equally and fully. MDM: - Vitals signs showed hypertension. - History obtained via patient. History as above. - Chronic conditions affecting care: CKD; HTN; HLD; radiation prostatitis - Differential diagnoses include, but are not limited to: Coagulopathy; acute UTI; ureteral stone; bladder mass; BPH - Order placed for continuous cardiac monitoring. At this time, monitor showed rate of 70 bpm with normal sinus rhythm, per my interpretation. - External medical records reviewed. Radiation oncology visit note dated 02/04/2024 was reviewed. Patient follows in our clinic for his prostate cancer. He had improved bladder symptoms with Gemtesa. - Laboratory workup interpreted by myself showed normal WBC; chronic anemia (Hgb 13.5); therapeutic INR (3.4 - patient's goal range is 2.5-3.5); stable electrolytes; CKD - UA showed elevated RBCs and blood - 3 way hernandez catheter inserted and continuous bladder irrigation was initiated. However, scant sediment and scant amounts of blood-tinged urine were appreciated by nursing staff on insertion of the Hernandez catheter. - CT abdomen/pelvis with IV contrast showed polycystic kidney disease. No identified source for the hematuria. Noted to have a incomplete distention of the urinary bladder with gomez that appear hazy. Noted to have renal cysts though may be actual renal lesions but do appear stable from previous imaging. - Discussion was had with returned case inspector about patient's case and need for admission - Hospitalist, Dr. Esteban, consulted for admission - Patient admitted to [facility] service for further evaluation and management. ASSESSMENT AND PLAN: Diagnosis: Gross hematuria Plan: Admit Past Med/Surg History Problem List (Updated 02/09/24 @ 00:07 by Virgilio Ngo) Radiation proctitis CKD (chronic kidney disease) stage 3, GFR 30-59 ml/min Radiation cystitis (Acute) Elevated prostate specific antigen (PSA) Greater trochanteric bursitis Effusion, right knee Effusion, left knee Hematuria (Acute) Hyperlipidemia Prostate cancer (Chronic 12/29/19) radiation HTN (hypertension), benign H/O aortic valve replacement 1993 @ [facility]--follows with Dr. 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 occupational status: 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 Feels Safe at Home: Yes Diet: other caffeine: Yes (2 cups/day) during the past year weight has: remained stable Assistive Devices: None Allergies Allergies Allergy/AdvReac Type Severity Reaction Status Date / Time No Known Allergies Allergy Verified 02/04/24 13:47 Home Meds Home Medications Medication Instructions Recorded Confirmed cyanocobalamin (vitamin B-12) 1,000 mcg PO QAM ##0 11/10/14 02/04/24 1,000 mcg tablet multivitamin 1 tab PO QAM ##0 11/10/14 02/04/24 calcium carbonate (Calcium 600) 600 mg PO QAM 02/03/20 02/04/24 glucosamine 750 [id number] 1 tab PO BID 02/03/20 02/04/24 no1 644 mg-C 30 mg-galindo 1 mg tablet (Osteo Bi-Flex Triple Strength) diphenhydramine 25 1 tab PO HS 07/15/21 02/04/24 mg-acetaminophen 500 mg tablet (Tylenol PM Extra Strength) losartan 100 mg tablet 100 mg PO QAM 07/15/21 02/04/24 simvastatin 20 mg tablet 20 mg PO HS 07/15/21 02/04/24 amlodipine 2.5 mg tablet 2.5 mg PO HS 08/01/21 02/04/24 cholecalciferol (vitamin D3) 125 125 mcg PO QAM 05/24/22 02/04/24 mcg (5,000 unit) tablet (Vitamin D3) magnesium oxide 500 mg PO QAM 05/24/22 02/04/24 zinc gluconate 50 mg tablet 50 mg PO QAM 05/24/22 02/04/24 spironolactone 25 mg tablet 12.5 mg PO 3XWK 05/31/22 02/04/24 docusate sodium 100 mg capsule 100 mg PO HS 08/14/22 02/04/24 (Stool Softener) warfarin 5 mg tablet 5 mg PO QPM 01/31/23 02/04/24 Previous Rx's Medication Instructions Recorded vibegron 75 mg tablet (Gemtesa) 75 mg PO DAILY #90 tabs 01/10/24 mirabegron 25 mg tablet,extended 25 mg PO DAILY #90 tabs 02/26/24 release 24 hr (Myrbetriq) Results & Data (ED) Vital Signs Vital Signs - 24 hr 03/05/24 17:39 03/05/24 19:22 03/05/24 20:14 Temperature 36.5 C Temperature Source Temporal Artery Scan Pulse Rate 73 67 78 Pulse Rate from SpO2 Sensor 74 Respiratory Rate 20 18 18 Respiratory Effort / Characteristics Non-Labored Respiratory Depth Normal Blood Pressure 173/85 H 164/78 H 126/78 Blood Pressure Mean 114 106 109 Pulse Oximetry 97 96 98 Oxygen Delivery Method Room Air Room Air Room Air Sepsis Recent Fever Within 48 Hours No Sepsis New/Unexplained Change in Mental Status No Sepsis Action Taken by Nursing No Action Required 03/05/24 20:16 03/05/24 20:23 03/05/24 21:00 Temperature Temperature Source Pulse Rate 70 68 70 Pulse Rate from SpO2 Sensor 70 Respiratory Rate 26 H 20 Respiratory Effort / Characteristics Respiratory Depth Blood Pressure 126/78 146/79 H Blood Pressure Mean 94 127 Pulse Oximetry 97 97 Oxygen Delivery Method Room Air Room Air Sepsis Recent Fever Within 48 Hours Sepsis New/Unexplained Change in Mental Status Sepsis Action Taken by Nursing 03/05/24 22:00 Temperature Temperature Source Pulse Rate 70 Pulse Rate from SpO2 Sensor 69 Respiratory Rate 23 Respiratory Effort / Characteristics Respiratory Depth Blood Pressure 124/95 Blood Pressure Mean 109 Pulse Oximetry 96 Oxygen Delivery Method Room Air Sepsis Recent Fever Within 48 Hours Sepsis New/Unexplained Change in Mental Status Sepsis Action Taken by Nursing Laboratory Data 03/05/24 17:59 03/05/24 17:59 Lab Results 03/05/24 03/05/24 Range/Units 17:59 19:51 WBC 6.12 (4.8-10.8) K/ul RBC 4.10 L (4.70-6.10) M/uL Hgb 13.5 L (14.0-18.0) g/dl Hct 39.7 L (42.0-52.0) % MCV 96.8 (80.0-100.0) fL MCH 32.9 (25.0-34.0) pg MCHC 34.0 (32.0-36.0) g/dL RDW Std Deviation 49.0 H (36.4-46.3) fL RDW Coeff of Skye 13.8 (11.5-14.5) % Plt Count 217 (130-400) K/uL MPV 9.6 (9.4-12.4) fL Immature Gran % (Auto) 0.5 % Neut % (Auto) 56.3 % Lymph % (Auto) 24.0 % Barton % (Auto) 12.3 % Eos % (Auto) 6.2 % Baso % (Auto) 0.7 % Neut # (Auto) 3.45 (1.40-6.50) K/uL Lymph # (Auto) 1.47 (1.20-3.40) K/uL Barton # (Auto) 0.75 H (0.11-0.59) K/uL Eos # (Auto) 0.38 (0.00-0.50) K/uL Baso # (Auto) 0.04 (0.00-0.20) K/uL Immature Gran # (Auto) 0.03 (0.01-0.20) K/uL PT 32.9 H (9.0-12.0) Seconds INR 3.4 H (0.9-1.1) APTT 40 H (21-31) Seconds PTT Ratio 1.5 Sodium 139 (136-145) mmol/L Potassium 4.5 (3.5-5.1) mmol/L Chloride 106 (98-107) mmol/L Carbon Dioxide 29 (21-32) mmol/L Anion Gap 4 (3-11) BUN 28 H (6-23) mg/dl Creatinine 1.95 H (0.6-1.4) mg/dl Est Cr Clr Drug Dosing Not Reportable eGFR 34.14 BUN/Creatinine Ratio 14.4 (10-20) Glucose 103 H (70-99(Fasting)) mg/dl Calcium 9.8 (8.6-10.3) mg/dl Total Bilirubin 0.6 (0.2-1.0) mg/dl AST 20 (13-39) U/L ALT 13 (7-52) U/L Alkaline Phosphatase 65 (34-104) U/L Total Protein 7.0 (6.0-8.3) gm/dl Albumin 4.6 (3.4-5.0) gm/dl Globulin 2.4 L (2.5-4.0) gm/dl Albumin/Globulin Ratio 1.9 (0.9-2) Urine Color Yellow Urine Appearance Clear (Clear) Urine pH 6.0 (4.5-7.5) Ur Specific Pauline 1.012 (1.000-1.030) Urine Protein Trace H (Negative) Urine Glucose (UA) Negative (Negative) Urine Ketones Negative (Negative) Urine Blood 3+ H (Negative) Urine Nitrite Negative (Negative) Urine Bilirubin Negative (Negative) Urine Urobilinogen Negative (Negative) Ur Leukocyte Esterase Negative (Negative) Urine WBC (Auto) 0-5 (0-5) /hpf Urine RBC (Auto) >20 H (0-2) /hpf U Hyaline Cast (Auto) 0-2 (0-2) /lpf U Epithel Cells (Auto) 0-2 (0-2) /hpf Urine Bacteria (Auto) None Seen (None Seen) Administered Medications Discontinued Medications Ioversol (Optiray 320 100ml) 92 ml IV ONCE ONE Stop: 03/05/24 20:07 Last Admin: 03/05/24 20:06 Dose: 92 ml Documented By: EAIvonne Imaging Data Radiologist's Impression: Abdomen/Pelvis CT 03/05/24 19:37 Exam(s): CT ABDOMEN + PELVIS With Contrast IV Amt: 92 cc opti 320 EXAM: CT Abdomen and Pelvis With Intravenous Contrast CLINICAL HISTORY: Reason for exam: gross hematuria. TECHNIQUE: Axial computed tomography images of the abdomen and pelvis with intravenous contrast. CTDI is 16 mGy and DLP is 1134 mGy-cm. Automated exposure control was utilized for the study. A dose lowering technique was utilized adhering to the principles of ALARA. CONTRAST: Patient received 92 cc opti 320 of IV contrast COMPARISON: 08/04/23 FINDINGS: Lung bases: Unremarkable. Heart: Prior sternotomy and aortic valve replacement. Coronary artery atherosclerosis. No cardiomegaly or pericardial effusion. ABDOMEN: Liver: Benign right hepatic lobe cyst measuring 21 mm. Gallbladder and bile ducts: Cholelithiasis without cholecystitis or biliary dilatation. Pancreas: Unremarkable. No mass. No ductal dilation. Spleen: Unremarkable. No splenomegaly. Adrenals: Unremarkable. No mass. Kidneys and ureters: Polycystic kidney disease with numerous simple bilateral renal cysts for which no further follow-up is required. There are a few renal cysts which measure greater than simple fluid-density (e. g. left renal cyst measuring 2.7 cm on series 2, image 26). No hydronephrosis. Stomach and bowel: No bowel obstruction. Sigmoid diverticulosis. No mucosal thickening. PELVIS: Appendix: Normal appendix. Bladder: Incompletely distended urinary bladder, limiting evaluation. Reproductive: Unremarkable as visualized. ABDOMEN and PELVIS: Intraperitoneal space: Unremarkable. No free air, significant free fluid, or fluid collection. Bones/joints: Diffuse idiopathic skeletal hyperostosis and multilevel degenerative change in the thoracolumbar spine. Mild osteoarthritic change in both hips. Osteitis pubis. No acute fracture or dislocation. Soft tissues: Small fat-containing umbilical hernia. Surgical clips in the left inguinal region. Vasculature: Atherosclerosis. Lymph nodes: Unremarkable. No enlarged lymph nodes. IMPRESSION: No identified source cause for hematuria. Incomplete distention of the urinary bladder, limiting evaluation. The wall appears hazy. This appearance is similar to prior and may be chronic. Correlate with urinalysis. Polycystic kidney disease. There are a few renal cysts which measure greater than simple fluid- density (e.g. left renal cyst measuring 2.7 cm on series 2, image 26). These are favored to represent simple cysts with pseudo-enhancement related to CT technique, or possibly complicated cysts. Technically, however, solid renal lesions cannot be excluded on the basis of this exam. Lesions appear stable from prior imaging. As deemed clinically appropriate, follow-up may be performed with dual-energy contrast- enhanced CT or renal mass protocol CT or MRI. Electronically signed by: Fran Tinoco M.D. 03/05/24 20:40 PM Discharge Plan Visit Data Chief Complaint: Bleeding Stated Complaint: BLEEDING FROM THE RECTUM ANDD PENIS ED Provider: Noni Pittman Discharge Problem: Gross hematuria Forms Stand Alone Forms: My Enbase Prescriptions Prescriptions: No Action calcium carbonate [Calcium 600] 600 mg calcium (1,500 mg) tablet 600 mg PO QAM Osteo Bi-Flex Triple Strength 750 mg-644 mg- 30 mg-1 mg tablet 1 tab PO BID Rx Instructions: give with meal/snack multivitamin Tablet 1 tab PO QAM Qty: 0 cyanocobalamin (vitamin B-12) 1,000 mcg Tablet 1,000 mcg PO QAM Qty: 0 mirabegron [Myrbetriq] 25 mg tablet extended release 24 hr 25 mg PO DAILY Qty: 90 3RF Gemtesa 75 mg tablet 75 mg PO DAILY Qty: 90 3RF magnesium oxide 500 mg Tablet 500 mg PO QAM zinc gluconate 50 mg Tablet 50 mg PO QAM cholecalciferol (vitamin D3) [Vitamin D3] 125 mcg (5,000 unit) Tablet 125 mcg PO QAM warfarin 5 mg tablet 5 mg PO QPM spironolactone 25 mg tablet 12.5 mg PO 3XWK Patient Comments: takes in the am Rx Instructions: Takes on Sat amlodipine 2.5 mg Tablet 2.5 mg PO HS simvastatin 20 mg Tablet 20 mg PO HS diphenhydramine-acetaminophen [Tylenol PM Extra Strength] 25-500 mg Tablet 1 tab PO HS losartan 100 mg Tablet 100 mg PO QAM docusate sodium [Stool Softener] 100 mg capsule 100 mg PO HS Rx Instructions: Daily HS and QOD in the morning. Referrals Referrals: Deon Mendez MD [Primary Care Provider] -
[2024-03-05] MEDS: OPTIRAY 320 100ml IV ONE (20:06)
[2024-03-05 20:08] LABS: Appearance Urine Clear (Clear); Bacteria Urine Automated None Seen (None Seen); Bilirubin Urine Negative (Negative); Blood Urine 3+ (Negative); Cast Urine Automated 0-2 /lpf (0-2); Color Urine Yellow; Epithelial Cell Urine Auto 0-2 /hpf (0-2); Glucose Urine UA Negative (Negative); Ketones Urine Negative (Negative); Leukocyte Esterase Urine Negative (Negative); Nitrite Urine Negative (Negative); Protein Urine Trace (Negative); RBC Urine Automated >20 /hpf (0-2); Specific Gravity Urine 1.012 (1.000-1.030); Urobilinogen Urine Negative (Negative); WBC Urine Automated 0-5 /hpf (0-5)
--- NOTE | 2024-03-05 20:41 | CT Scan Report ---
Exam(s): CT ABDOMEN + PELVIS With Contrast IV Amt: 92 cc opti 320 EXAM: CT Abdomen and Pelvis With Intravenous Contrast CLINICAL HISTORY: Reason for exam: gross hematuria. TECHNIQUE: Axial computed tomography images of the abdomen and pelvis with intravenous contrast. CTDI is 16 mGy and DLP is 1134 mGy-cm. Automated exposure control was utilized for the study. A dose lowering technique was utilized adhering to the principles of ALARA. CONTRAST: Patient received 92 cc opti 320 of IV contrast COMPARISON: 08/04/23 FINDINGS: Lung bases: Unremarkable. Heart: Prior sternotomy and aortic valve replacement. Coronary artery atherosclerosis. No cardiomegaly or pericardial effusion. ABDOMEN: Liver: Benign right hepatic lobe cyst measuring 21 mm. Gallbladder and bile ducts: Cholelithiasis without cholecystitis or biliary dilatation. Pancreas: Unremarkable. No mass. No ductal dilation. Spleen: Unremarkable. No splenomegaly. Adrenals: Unremarkable. No mass. Kidneys and ureters: Polycystic kidney disease with numerous simple bilateral renal cysts for which no further follow-up is required. There are a few renal cysts which measure greater than simple fluid-density (e. g. left renal cyst measuring 2.7 cm on series 2, image 26). No hydronephrosis. Stomach and bowel: No bowel obstruction. Sigmoid diverticulosis. No mucosal thickening. PELVIS: Appendix: Normal appendix. Bladder: Incompletely distended urinary bladder, limiting evaluation. Reproductive: Unremarkable as visualized. ABDOMEN and PELVIS: Intraperitoneal space: Unremarkable. No free air, significant free fluid, or fluid collection. Bones/joints: Diffuse idiopathic skeletal hyperostosis and multilevel degenerative change in the thoracolumbar spine. Mild osteoarthritic change in both hips. Osteitis pubis. No acute fracture or dislocation. Soft tissues: Small fat-containing umbilical hernia. Surgical clips in the left inguinal region. Vasculature: Atherosclerosis. Lymph nodes: Unremarkable. No enlarged lymph nodes. IMPRESSION: No identified source cause for hematuria. Incomplete distention of the urinary bladder, limiting evaluation. The wall appears hazy. This appearance is similar to prior and may be chronic. Correlate with urinalysis. Polycystic kidney disease. There are a few renal cysts which measure greater than simple fluid- density (e.g. left renal cyst measuring 2.7 cm on series 2, image 26). These are favored to represent simple cysts with pseudo-enhancement related to CT technique, or possibly complicated cysts. Technically, however, solid renal lesions cannot be excluded on the basis of this exam. Lesions appear stable from prior imaging. As deemed clinically appropriate, follow-up may be performed with dual-energy contrast- enhanced CT or renal mass protocol CT or MRI. Electronically signed by: Fran Tinoco M.D. 03/05/24 20:40 PM
--- NOTE | 2024-03-05 22:25 | History & Physical Report ---
Date of Service March 05, 2024 Assessment & Plan (1) Hematuria: (2) Prostate cancer: (3) Bladder cancer: (4) Radiation proctitis: (5) Radiation cystitis: (6) H/O aortic valve replacement: (7) CKD (chronic kidney disease) stage 3, GFR 30-59 ml/min: Plan Patient is an 78-year-old male with a past medical history of bladder cancer, prostate cancer, radiation proctitis resulting in GI bleed July 2023, urgent continence, hypertension, hyperlipidemia, CKD. He presents today due to gross hematuria. He stated he had an ultrasound of his kidneys this morning and has been soaking through multiple depends. He is being admitted for work up of hematuria with urology consult. 3 way Hernandez catheter inserted in ED. #hematuria/bladder CA/prostate CA/radiation cystitis/radiation proctitis gross hematuria x 1 day hx of bladder CA, prostate CA, radiation cystis and proctitis - completed radiation therapy 2-3 years ago hx GI bleed July 2023 2/[address] showed polycystic kidney disease, no identified source of hematuria Hgb stable, improved from baseline - 13.5 UA showed >20 RBC questionable if from rectum - heme occult ordered 3 way hernandez placed hold Warfarin urology consulted #h/o aortic valve replacement INR 3.4 holding warfarin with above repeat INR with AM labs #CKD renal function stable Cr 1.95 Bun 28 trend BMP with above Chronic stable diagnoses: HTN - continue amlodipine, losartan; spironolactone 3xWk - hold while inpatient urge incontinence - continue mirabegron HLD - continue statin VTE ppx: SCDs - no chemical ppx with hematuria Diet: heart healthy Dispo: med surg Admission and Anticipated Discharge Date Admission Date: 03/05/24 History of Present Illness Chief Complaint: bleeding Primary Care Provider: Deon Mendez MD Patient is an 78-year-old male with a past medical history of bladder cancer, prostate cancer, radiation proctitis resulting in GI bleed July 2023, urgent continence, hypertension, hyperlipidemia, CKD. He presents today due to gross hematuria. He stated he had an ultrasound of his kidneys this morning and has been soaking through multiple depends. He is being admitted for work up of hematuria with urology consult. 3 way Hernandez catheter inserted in ED. Patient seen at bedside. He stated that he had an ultrasound of his kidneys this morning. This afternoon he noted hematuria in his blood. He stated he has mild incontinence of bladder, no acute changes. He denies bleeding per rectum, no blood in bowel movement this morning. Patient denies fever, chills, dyspnea, dyspnea on exertion, chest pain, abdominal pain, nausea, vomiting, diarrhea, constipation, dysuria. He denies nicotine and alcohol use. He denies past history of DM or previous VTE. He took his home medications this morning but is due for evening doses. He wishes to be full code at this time. Allergies Allergy/AdvReac Type Severity Reaction Status Date / Time No Known Allergies Allergy Verified 02/04/24 13:47 Home Medications Medication Instructions Recorded Confirmed Type cyanocobalamin (vitamin B-12) 1,000 mcg PO QAM ##0 11/10/14 03/05/24 History 1,000 mcg tablet multivitamin 1 tab PO QAM ##0 11/10/14 03/05/24 History calcium carbonate (Calcium 600) 600 mg PO QAM 02/03/20 03/05/24 History glucosamine 750 ak-lqeqxnyuixc-llp 1 tab PO BID 02/03/20 03/05/24 History no1 644 mg-C 30 mg-galindo 1 mg tablet (Osteo Bi-Flex Triple Strength) diphenhydramine 25 1 tab PO HS 07/15/21 03/05/24 History mg-acetaminophen 500 mg tablet (Tylenol PM Extra Strength) losartan 100 mg tablet 100 mg PO QAM 07/15/21 03/05/24 History amlodipine 2.5 mg tablet 2.5 mg PO HS 08/01/21 03/05/24 History cholecalciferol (vitamin D3) 125 125 mcg PO QAM 05/24/22 03/05/24 History mcg (5,000 unit) tablet (Vitamin D3) magnesium oxide 500 mg PO QAM 05/24/22 03/05/24 History zinc gluconate 50 mg tablet 50 mg PO QAM 05/24/22 03/05/24 History spironolactone 25 mg tablet 12.5 mg PO 3XWK 05/31/22 03/05/24 History docusate sodium 100 mg capsule 100 mg PO UD 08/14/22 03/05/24 History (Stool Softener) vibegron 75 mg tablet (Gemtesa) 75 mg PO DAILY #90 tabs 01/10/24 03/05/24 Rx mirabegron 25 mg tablet,extended 25 mg PO DAILY #90 tabs 02/26/24 03/05/24 Rx release 24 hr (Myrbetriq) simvastatin 20 mg tablet 20 mg PO HS 03/05/24 03/05/24 History warfarin 5 mg tablet 5 mg PO QPM 03/05/24 03/05/24 History Past Med/Surg History Problem List (Updated 02/09/24 @ 00:07 by Virgilio Ngo) Radiation proctitis CKD (chronic kidney disease) stage 3, GFR 30-59 ml/min Radiation cystitis (Acute) Elevated prostate specific antigen (PSA) Greater trochanteric bursitis Effusion, right knee Effusion, left knee Hematuria (Acute) Hyperlipidemia Prostate cancer (Chronic 12/29/19) radiation HTN (hypertension), benign H/O aortic valve replacement 1993 @ [facility]--follows with Dr. 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 Sister Natural with unknown cause Other No family history of adverse response to anesthesia Social History Smoking Status: Never smoker Tobacco Type: Cigarettes Second Hand Exposure: No; Do You Dip or Chew Tobacco: No; Hx Alcohol Use: Yes Alcohol type: beer, wine and hard liquor Hx Substance Use: No Preferred Language: Bulgarian Communication Ability: Effective Visual Impairment: No Limitations Hearing Ability: Normal Historical Archeologist Required: No Beliefs That Will Affect Care: Druze Druze Beliefs: JAYJAY CATHOLCI marital status: Current Living Situation: Spouse current occupational status: 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 Non-toxic appearing. HEENT- EOMI, mucous membranes moist. Hearing grossly intact. Heart-normal S1 and S2. No murmurs, rubs or gallops. Lungs-clear bilaterally, no respiratory distress, no accessory muscle use. Abdomen-normal bowel sounds and soft. No ascites noted. Non-tender. Extremities- no clubbing, cyanosis, or edema. Rheumatologic-normal range of motion. Psychiatric-normal affect. Results & Data Results & Data Vital Signs (Past 12 Hours) Vital Signs Temp Pulse Resp BP Pulse Ox O2 Del Method 03/05/24 21:00 70 20 146/79 H 97 Room Air 03/05/24 20:23 68 03/05/24 20:16 70 26 H 126/78 97 Room Air 03/05/24 20:14 78 18 126/78 98 Room Air 03/05/24 19:22 67 18 164/78 H 96 Room Air 03/05/24 17:39 36.5 C 73 20 173/85 H 97 Room Air Laboratory Results Reviewed CBC, PT/INR, CMP, UA Diagnostic Findings reviewed AP CT ECG Additional Comments: ordered Code Status & VTE Plan Code Status full VTE Prophylaxis Plan VTE Prophylaxis will be ordered: Yes Supervising Physician Co-Signing Physician Notes Attending addendum: I have physically seen this patient, have supervised the GEORGE's activities, and agree with the H&P unless as otherwise noted. Assessment and Plan: The patient is an 78-year-old male with a past medical history including radiation proctitis, CKD stage III, radiation cystitis, bladder cancer, prostate cancer, hyperlipidemia, hypertension, history of AVR on chronic anticoagulation with warfarin. He presents to the emergency department with complaint of gross hematuria, and has been soaking through multiple depends throughout the day, after having had an ultrasound of his kidneys earlier this morning. He presents to the emergency department for assessment gross hematuria, and for evaluation by urology. Three-way Hernandez catheter placed in the emergency department for possible need for CBI, but was not started. #Gross hematuria- After placement of three-way Hernandez catheter, patient was draining lightly pink urine, so CBI not begun Follow urine culture and sensitivity Symptoms are likely secondary to radiation proctitis, which she has noted to be the culprit in the past Continue mirabegron, Vibegron Consult urology Hold warfarin History of AVR/chronic anticoagulation with warfarin- INR 3.4 at admission Hold and follow serial INRs No significant bleeding at this moment If bleeding becomes more significant, will give low-dose vitamin K for partial reversal CKD- Creatinine 1.95, with base 1.64-1.93 Follow serially with repeat laboratories in the a.m. Presently takes spironolactone 3 times per week, and losartan daily, which will be held if creatinine worsens Continue calcium and vitamin D3 Chronic medical issues: B12 deficiency-Continue supplement Hyperlipidemia-continue simvastatin PG Care Time/CCT Total # of Minutes Spent Total Time Spent with Patient: Total time spent is greater than 50% in coordination of care (as documented) at patient's floor/unit and/or counseling patient: Coding Level of Care Code 04845 INT INP/OBS CARE 3/75MIN Diagnoses Hematuria R31.0 Hematuria type: gross Prostate cancer C61 Bladder cancer C67.9 Radiation proctitis K62.7 Radiation cystitis N30.40 H/O aortic valve replacement Z95.2 CKD (chronic kidney disease) stage 3, GFR 30-59 ml/min N18.30 (1) Hematuria Hematuria type: gross Qualified Code(s): R31.0 - Gross hematuria
--- OUTSIDE RECORDS SUMMARY | 2024-03-05 23:33 | External Medical Summary | Summary of Care ---
Author Name Unknown Organization [facility] Address [address] [place] [address] Phone [phone] Care Team Providers Care Airborne Operations Manager Name Role Phone Deon Mendez MD Primary Care Provider [phone] Reason for Visit * Reason Onset Date Comments Procedure 02/25/2024 Encounter Details Date Type Department Care Team ([facility] st Contact Info) Description 02/25/2024 Telephone [facility], Jennifer Esteban [address] [place] [address] [place] [id number] [facility], [address] [place] [id number] Procedure Allergies No known active allergiesdocumented as of this encounter (statuses as of 02/26/2024) Medications MULTIVITAMINS PO CAPS Take by mouth daily. 0 12/11/19 Active OSTEO BI-FLEX ADV TRIPLE ST PO TABS Take by mouth 2 times a day. Active VITAMIN D 1000 UNITS PO CAPS Take 1 Capsule by mouth in the morning. Active Amoxicillin 500 MG Oral Capsule (Amoxil) 07/11/19 Active Calcium-Magnesium -Zinc 333-133-5 MG Oral Tablet Take by mouth every evening. Active B-12 1000 MCG Oral Capsule Take 1 Capsule by mouth in the morning. Active Docusate Sodium 100 MG Oral Capsule Take 1 Capsule by mouth every evening. Active Glucosamine Chondr 500 Complex Oral Capsule Take 1 Capsule by mouth in the morning and 1 Capsule before bedtime. Active Tylenol PM Extra Strength 500-25 MG Oral Tablet (diphenhydrAMINE- APAP (sleep)) Take 1 Tablet by mouth at bedtime. Active Losartan Potassium 100 MG Oral Tablet (Cozaar)Indicatio ns:First degree AV block,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,HTN, goal below 140/90 TAKE 1 TABLET BY MOUTH EVERY DAY 90 Tablet 3 02/25/19 24 Active Additional Information Patient taking differently: 100 mg Oral Daily(AM), Reported on 02/25/2024 Warfarin Sodium 5 MG Oral Tablet (Coumadin)Indicat ions: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,alf current use of anticoagulant therapy TAKE 7.5MG ON SATURDAY THEN 5MG ALL OTHER DAYS OF WEEK OR DIRECTED BY ANTICOAGULATION PHARMACIST 102 Tablet 3 06/19/19 24 Active Simvastatin 20 MG Oral Tablet (Zocor)Indication s:Dyslipidemia, goal LDL below 70 TAKE 1 TABLET BY MOUTH EVERYDAY AT BEDTIME 90 Tablet 3 08/14/19 24 Active Spironolactone 25 MG Oral Tablet (Aldactone)Indica tions:HTN, goal below 140/90,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,Enlar ged aorta (HCC),Abdominal aortic aneurysm (AAA) without rupture (HCC) Take 1/2 tablet by mouth three days per week. 30 Tablet 3 01/23/20 24 Active Additional Information Patient taking differently: 12.5 mg, Take 1/2 tablet by mouth three days per week. Saturday, Reported on 02/25/2024 amLODIPine Besylate 2.5 MG Oral Tablet (Norvasc)Indicati ons:HTN, goal below 140/90 TAKE 1 TABLET BY MOUTH EVERY DAY IN THE EVENING 90 Tablet 3 02/13/20 24 Active Gemtesa 75 MG Oral Tablet Take 1 Tablet by mouth at bedtime. Takes at supper 01/10/20 24 Active documented as of this encounter (statuses as of 02/26/2024) Active Problems Problem Noted Date Diagnosed Date Enlarged aorta 12/11/2023 HTN, goal below 140/90 12/11/2023 Hx of actinic keratosis 07/16/2018 Syncope 07/10/2015 First degree AV block 07/10/2015 Personal history of malignant neoplasm of skin 0 09/04/2010 Overview (10/14/2023): [facility] R chin 08/11, BCC R superior forehead 01/10, BCC L nasal skin 11/10, BCC crown 03/12, BCC L chest 02/2021, BCC L glabella 03/2020, and R upper arm 02/2020, BCC R upper lateral arm, R orthodox 02/2013, possible BCC chest - unknown year (Lindy) Dyslipidemia, goal LDL below 70 05/31/2010 BMI 35-39 ISOLATED (SEE ACTUAL BMI) 08/01/2009 Overview (08/01/2009): Per Obesity Protocol, #19 alf current use of anticoagulant therapy 1 04/04/2002 Overview (11/19/2016): ICD-10 update of inactive term 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 08/27/2001 Overview (05/29/2002): [facility] Anticoagulation management encounter 08/27/2001 documented as of this encounter (statuses as of 02/26/2024) Immunizations Name Administration Dates Next Due COVID-19 mRNA, LNP-s, No Pre serve, 2-Dose Series (Moderna) 04/21/2020,03/26/2020 Seasonal Influenza Vac., MDV, IM, 0.5 mL (Fluzon e) 11/15/2008,12/16/2006 documented as of this encounter Social History Tobacco Use Types Packs/Day Years Used Date Smoking Tobacco: Former Cigarettes Q uit: 1976 Smokeless Tobacco: Never Alcohol Use Standard Drinks/Week Comments Yes 0 (1 standard drink = 0.6 oz pur e alcohol) 2-3 drinks/week Sex and Gender Information Value Date Recorded Sex Assigned at Not on file Legal Sex Male 5:56 AM EST Gender Identity Not on file Sexual Orientation Not on file Occupation Industry Job Start Date Job End Date Not on file Not on file Not on file Not on file documented as of this encounter Miscellaneous Notes * Telephone Encounter - Temi Chand RPh - 02/26/2024 10:19 AM EST Noted, will advise closer to time of procedure Temi Chand Rph, Pharm.D. Clinical Pharmacist [facility] ([facility]) [phone] 02/26/2024,10:19 AM * Telephone Encounter - Susana Robertson bait maker - 02/25/2024 3:26 PM EST Caller's name: Fouzia Preferred call back number(OFFICE NUMBER FOR ): [phone] Reason for call: Patient is having a tooth extraction with sedation on 05/21 at [facility]. INR will need to be between 2.0 and 2.5 before extraction. Would also like patient's INR to be drawn on 05/20 prior to procedure. Requesting results be faxed to [phone] Susana Robertson Police Stenographer [facility] [address] [place] [address] [address] [place] [address] [id number] 02/25/2024,3:31 PM documented in this encounter Plan of Treatment Upcoming Encounters Date Type Department Care Team (Late st Contact Info) Description 03/05/2024 10:10 AM EST Laboratory Laboratory Sc[facility] [address] [place] [id number] [place], Lab Scenery [address] [place] [address] 03/06/2024 6:15 AM EST Anticoagulation [facility], Jennifer Esteban [address] [place] [address] [place] [address] [facility], [address] [place] [address] 06/23/2024 11:00 AM EDT Office Visit Cardiology, [facility] [address] [facility] [place] [address] Lala Gillis PA-C [address] [place] [address] 08/17/2024 8:15 AM EDT Office Visit Dermatology [facility] [address] [facility] [place] [address] Jose L Bell MD [address] [facility] [place] [address] 09/22/2024 2:20 PM EDT Office Visit Nephrology, [facility] [address] [facility] [place] [address] Flynn Putnam MD [address] [facility] [place] [address] Scheduled Procedures Name Priority Associated Diagnoses Date/Ti me COLONOSCOPY FLEXIBLE PROXIMAL DIAGNOSTIC Recall History of colon polyps Health Maintenance Due Date Last Done Comments Depression Screening 1955 Albumin/Creatinine Ratio 1961 DTap/Tdap Vaccines (1 - Tdap) 1962 Zoster Vaccines (3 of 3) 01/09/2019 11/14/2018, 05/2009 COVID-19 Vaccine ( season) 2023 10/29/2023, 10/29/2023, 09/24/2022, Additional history exists GFR 01/27/2025 01/28/2024, 04/18, 08/29/2022, Additional history exists Colonoscopy 05/25/2025 05/25/2020, 08/2020, 09/28/2014, Additional history exists RETIRED - COLONOSCOPY-EVERY 5 YRS AGES 18-100 Discontinued 05/25/2020, 05/25/2020, 09/28/2014, Additional history exists Pneumococcal Vaccine: 50+ Years Completed 01/08/2023, 10/11/2019, 10/20/2015 Influenza Vaccine (FLU shot) Completed 10/29/2023, 10/29/2023, 10/04/2020, Additional history exists HPV (Gardasil) Vaccine Aged Out No lo nger eligible based on patient's age to complete this topic Hepatitis B Vaccine Aged Out No longe r eligible based on patient's age to complete this topic MENINGOCOCCAL (MENACTRA/MENVEO) Aged Out No longer eligible based on patient's age to complete this topic documented as of this encounter Medical Devices Implanted Type Area Laborer Aquatic Life Device Identifier Shelf Expiration Date Model / Serial / Lot Lens Intraoc 20.5 - [id number] - [id number] Implanted:Qty: 1 on 03/19/2019 by Jean Villanueva MD at OR [facility] Left: Eye [employer] 10/19/2023 [id number] / [id number] / Lens Intraoc 21.0 - [id number] - [id number] Implanted:Qty: 1 on 03/31/2019 by Jean Villanueva MD at OR [facility] Right: Eye [employer] 09/18/2023 [id number] / [id number] / [id number] Clip Quick 2.8mm 230cm - [id number] Implanted:Qty: 1 on 05/25/2020 by Keith Olivia MD at ENDOSCOPY [facility] [employer] 08/17/2022 [id number] / documented as of this encounter Visit Diagnoses Diagnosis 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- Primary Heart valve replaced by other means documented in this encounter Care Teams Airborne Operations Manager Relationship Specialty Start Date End Date Deon Mendez MD [address] [facility] [address] [place] [address] PCP - General Sports Medicine 12/11/23 documented as of this encounter
--- OUTSIDE RECORDS SUMMARY | 2024-03-05 23:33 | External Medical Summary | Summary of Care ---
Author Name Unknown Organization [facility] Address [address] [facility] [address] Phone [phone] Care Team Providers Care Deputy Chief Counsel Name Role Phone Deon Mendez MD Primary Care Provider [phone] Reason for Visit * Reason Comments Outpatient Testing Encounter Details Date Type Department Care Team (Late st Contact Info) Description 03/05/2024 10:10 AM EST Laboratory Laboratory [facility] [place] [address] [place] [id number] [facility] [address] [place] [address] 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 Allergies No known active allergiesdocumented as of this encounter (statuses as of 03/05/2024) Medications MULTIVITAMINS PO CAPS Take by mouth daily. 0 12/11/19 08 Active OSTEO BI-FLEX ADV TRIPLE ST PO [...] differently: 100 mg Oral Daily(AM), Reported on 02/27/2024 Warfarin Sodium 5 MG Oral Tablet (Coumadin)Indicat ions: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,detention current use of anticoagulant therapy TAKE 7.5MG [...] three days per week. Saturday, Reported on 02/27/2024 amLODIPine Besylate 2.5 MG Oral Tablet (Norvasc)Indicati ons:HTN, goal below 140/90 TAKE 1 TABLET BY MOUTH EVERY DAY IN THE EVENING 90 Tablet 3 02/13/20 24 Active Gemtesa 75 MG Oral Tablet Take 1 Tablet by mouth at bedtime. Takes at supper 01/10/20 24 Active documented as of this encounter (statuses as of 03/05/2024) Active Problems Problem Noted Date Diagnosed Date Chronic kidney disease, stage 3b 03/02/2024 Overview: Per CKD protocol Enlarged aorta 12/11/2023 HTN, goal below 140/90 12/11/2023 Hx of actinic keratosis 07/16/2018 Syncope 07/10/2015 First degree AV block 07/10/2015 Personal history of malignant neoplasm of skin 0 09/04/2010 Overview (10/14/2023): BCC R chin 08/11, BCC R superior forehead 01/10, BCC L nasal skin 11/10, BCC crown 03/12, BCC L chest 02/2021, BCC L glabella 03/2020, and R upper arm 02/2020, BCC R upper lateral arm, R scientology 02/2013, possible BCC chest - unknown year (Lindy) Dyslipidemia, goal LDL below 70 05/31/2010 BMI 35-39 ISOLATED (SEE ACTUAL BMI) 08/01/2009 Overview (08/01/2009): Per Obesity Protocol, #19 assistant terminal manager current use of anticoagulant therapy 1 04/04/2002 Overview (11/19/2016): ICD-10 update of inactive term 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 08/27/2001 Overview (05/29/2002): [facility] Anticoagulation management encounter 08/27/2001 documented as of this encounter (statuses as of 03/05/2024) Immunizations Name Administration Dates Next Due COVID-19 [...] Team (Late st Contact Info) Description 03/05/2024 12:00 PM EST Imaging Radiology [facility] [address] [place] [phone] 03/06/2024 6:15 AM EST Anticoagulation Centralized Clinical Pharmacy Services, Jennifer Esteban [address] [place] [address] [place] [address] [facility] [place] [address] 06/23/2024 11:00 AM EDT Office Visit Cardiology, [facility] [address] [place] [address] Lala Gillis, NICK [address] [place] [address] 09/22/2024 2:20 PM EDT Office Visit Nephrology, [facility] [address] [facility] [place] [address] Flynn Putnam MD [address] [facility] [place] [address] Pending Results Name Type Priority Associated Diagnoses Date /Time PT INR Lab Routine 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 03/05/2024 10:40 AM EST Scheduled Procedures Name Priority Associated Diagnoses Date/Ti me COLONOSCOPY FLEXIBLE PROXIMAL DIAGNOSTIC Recall History of colon polyps Health Maintenance Due Date Last Done Comments Depression Screening 1955 Albumin/Creatinine Ratio 1961 DTap/Tdap Vaccines (1 - Tdap) 1962 Zoster Vaccines (3 of 3) 01/09/2019 11/14/2018, 05/2009 COVID-19 Vaccine ( season) 2023 10/29/2023, 10/29/2023, 09/24/2022, Additional history exists GFR 07/28/2024 01/28/2024, 04/18, 08/29/2022, Additional history exists Colonoscopy [...] this encounter Medical Devices Implanted Type Area Mattress And Foundation Sewer Device Identifier Shelf Expiration Date Model / Serial / Lot Lens Intraoc 20.5 - [id number] - [id number] Implanted:Qty: 1 on 03/19/2019 by Jean Villanueva MD at OR [facility] Left: Eye [employer] 10/19/2023 [id number] / [id number] / Lens Intraoc 21.0 - [id number] - [id number] Implanted:Qty: 1 on 03/31/2019 by Jean Villanueva MD at OR [facility] Right: Eye [employer] 09/18/2023 [id number] / [id number] / [id number] Clip Quick 2.8mm 230cm - [id number] Implanted:Qty: 1 on 05/25/2020 by Keith Olivia MD at ENDOSCOPY [facility] [employer] 08/17/2022 [id number] / documented as of this encounter Visit Diagnoses Diagnosis 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 Heart valve replaced by other means documented in this encounter Care Teams Deputy Chief Counsel Relationship Specialty Start Date End Date Deon Mendez MD [address] [address] PCP - General Sports Medicine 12/11/23 documented as of this encounter
--- OUTSIDE RECORDS SUMMARY | 2024-03-05 23:33 | External Medical Summary | Summary of Care ---
Author Name Unknown Organization [facility] Address [address] [place] [address] Phone [phone] Care Team Providers Care Manufacturing Engineer Chief Name Role Phone Deon Mendez MD Primary Care Provider [phone] Reason for Visit * Reason Comments NEW PATIENT Chronic Kidney Disease (CKD) New Patient referral from Lala Gillis PA-C for CKD with Hx of hypertension Last labs 01/28/24 * Evaluate & Treat - Unlimited Visits (Within 10 days (routine)) - Authorized Specialty Diagnoses / Procedures Referred By Peggy dunbar Referred To Contact Nephrology Diagnoses CKD (chronic kidney disease) stage 4, GFR 15-29 ml/min (HCC) HTN, goal below 140/90 Lala Gillis PA-C [address] [place] [address] Phone: tel: fax: Referral ID Status Reason Start Date Expiration Date Visits Requested Visits Authorized [id number] Authorized Specialty Services Required 02/21/2024 [id number] Encounter Details Date Type Department Care Team (Late st Contact Info) Description 02/25/2024 1:00 PM EST Office Visit [facility] [address] [place] [address] Flynn Putnam MD [address] [place] [address] Stage 3b chronic kidney disease (HCC)*; HTN, goal below 140/90; 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 Allergies No known active allergiesdocumented as of this encounter (statuses as of 02/25/2024) Medications MULTIVITAMINS PO CAPS Take by mouth [...] MG Oral Tablet (Coumadin)Indicat ions: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,[facility] current use of anticoagulant therapy TAKE 7.5MG [...] as of this encounter (statuses as of 02/25/2024) Active Problems Problem Noted Date Diagnosed Date [...] 02/2020, BCC R upper lateral arm, R jehovah's witness 02/2013, possible BCC chest - unknown year (Lindy) Dyslipidemia, goal LDL below 70 05/31/2010 BMI 35-39 ISOLATED (SEE ACTUAL BMI) 08/01/2009 Overview (08/01/2009): Per Obesity Protocol, #19 [facility] current use of anticoagulant therapy 1 04/04/2002 Overview (11/19/2016): ICD-10 update of inactive term 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 08/27/2001 Overview (05/29/2002): [facility] Anticoagulation management encounter 08/27/2001 documented as of this encounter (statuses as of 02/25/2024) Immunizations Name Administration Dates Next Due COVID-19 [...] on file documented as of this encounter Last Filed Vital Signs Vital Sign Reading Time Taken Comments Blood Pressure 128/60 02/25/2024 12:59 PM EST Pulse 64 02/25/2024 12:59 PM EST Temperature 36.6 C (97.9 F) 02/25/2024 12:[address] Respiratory Rate 20 02/25/2024 12:59 PM EST Oxygen Saturation 97% 02/25/2024 12:59 PM EST Inhaled Oxygen Concentration - - Weight 95.4 kg (210 lb 4.8 oz) 02/25/2024 12:59 PM EST Height 167.6 cm (5' 6") 02/25/2024 12:59 PM EST Body Mass Index 33.94 02/25/2024 12:59 PM EST documented in this encounter Progress Notes * Flynn Putnam MD - 02/25/2024 1:30 PM EST Subjective: Nakul Bradford is a 78 year old male. Chief Complaint Patient presents with NEW PATIENT Chronic Kidney Disease (CKD) New Patient referral from Lala Gillis PA-C for CKD with Hx of hypertension Last labs 01/28/24 HPI: 78-year-old male with history of slowly progressive CKD for many years, hypertension status post aortic valve replacement mechanical type on chronic Coumadin for 30+ years history of bladder cancer status post surgery and radiation and hyperlipidemia. However no diabetes no childhood kidney disease family history of kidney disease. Also no history of lung disease or history of acute renal failure. Reviewed his GFR trend which was about 40 in 2019 and on the most recent blood work from January 2024 it was about 30. He has had history of occasional gross hematuria which has been evaluated by his urologist and has been attributed to prostate cancer radiation. No urinary symptoms at this time in fact he does not even wake up at night to urinate No NSAIDs and no chronic daily pain No herbal medications In fact he has no real symptoms at this time. Twelve systems reviewed and negative Hydrochlorothiazide was stopped back in November 2023 by Cardiology. However GFR does not seem to change with her without hydrochlorothiazide. Patient Active Problem List Diagnosis 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 Anticoagulation management encounter [facility] current use of anticoagulant therapy BMI 35-39 ISOLATED (SEE ACTUAL BMI) Dyslipidemia, goal LDL below 70 Personal history of malignant neoplasm of skin Syncope First degree AV block Hx of actinic keratosis Enlarged aorta (HCC) HTN, goal below 140/90 Current Outpatient Medications Medication Sig Dispense Refill MULTIVITAMINS PO CAPS Take by mouth daily. 0 OSTEO BI-FLEX ADV TRIPLE ST PO TABS Take by mouth 2 times a day. VITAMIN D 1000 UNITS PO CAPS Take 1 Capsule by mouth in the morning. Amoxicillin 500 MG Oral Capsule (Amoxil) Lzacqhc-Ighaxkqwv-Qxpq 333-133-5 MG Oral Tablet Take by mouth every evening. B-12 1000 MCG Oral Capsule Take 1 Capsule by mouth in the morning. Docusate Sodium 100 MG Oral Capsule Take 1 Capsule by mouth every evening. Glucosamine Chondr 500 Complex Oral Capsule Take 1 Capsule by mouth in the morning and 1 Capsule before bedtime. Tylenol PM Extra Strength 500-25 MG Oral Tablet (diphenhydrAMINE-APAP (sleep)) Take 1 Tablet by mouth at bedtime. Losartan Potassium 100 MG Oral Tablet (Cozaar) TAKE 1 TABLET BY MOUTH EVERY DAY (Patient taking differently: Take 1 Tablet by mouth in the morning.) 90 Tablet 3 Warfarin Sodium 5 MG Oral Tablet (Coumadin) TAKE 7.5MG ON SATURDAY THEN 5MG ALL OTHER DAYS OF WEEK ORAS DIRECTED BY ANTICOAGULATION PHARMACIST 102 Tablet 3 Simvastatin 20 MG Oral Tablet (Zocor) TAKE 1 TABLET BY MOUTH EVERYDAY AT BEDTIME 90 Tablet 3 Spironolactone 25 MG Oral Tablet (Aldactone) Take 1/2 tablet by mouth three days per week. (Patienttaking differently: 0.5 Tablets. Take 1/2 tablet by mouth three days per week. Saturday) 30 Tablet 3 amLODIPine Besylate 2.5 MG Oral Tablet (Norvasc) TAKE 1 TABLET BY MOUTH EVERY DAY IN THE EVENING 90Tablet 3 Gemtesa 75 MG Oral Tablet Take 1 Tablet by mouth at bedtime. Takes at supper No current facility-administered medications for this visit. Past Medical History: Diagnosis Date Bladder neoplasm 1994 treated HTN, goal to be determined 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 1993 [facility] Past Surgical History: Procedure Laterality Date COLONOSCOPY, DIAGNOSTIC (RECTUM) 09/28/2014 proximal hyperplastic polyp, repeat 5 yrs/COLONOSCOPY FLEXIBLE PROXIMAL DIAGNOSTIC performed by Keith Olivia MD at ENDOSCOPY [facility] COLONOSCOPY, DIAGNOSTIC (RECTUM) 05/25/2020 adenomatous polyp, repeat 5 yrs / COLONOSCOPY FLEXIBLE PROXIMAL DIAGNOSTIC performed by Keith Olivia MD at ENDOSCOPY [facility] OTHER age 16 right knee surgery RELIEVE INNER EYE PRESSURE Left 03/19/2019 left GONIOTOMY performed by Jean Villanueva MD at [facility] RELIEVE INNER EYE PRESSURE Right 03/31/2019 right GONIOTOMY performed by Jean Villanueva MD at [facility] REMOVE CATARACT, INSERT LENS PROSTH Left 03/19/2019 left EXTRACAPSULAR CATARACT REMOVAL WITH INTRAOCULAR LENS performed by Jean Villanueva MD at [facility] REMOVE CATARACT, INSERT LENS PROSTH Right 03/31/2019 right EXTRACAPSULAR CATARACT REMOVAL WITH INTRAOCULAR LENS performed by Jean Villanueva MD at OR [facility] Review of patient's allergies indicates: No Known Allergies Family History Problem Relation Name Age of Onset Hypertension Mother Other (Other) Father heart problems Cancer Sister ? skin cancer Family Status Relation Status Mo at age 84 Fa at age 78--heart problems Sis (Not Specified) Social History Socioeconomic History Marital status: Spouse name: Not on file Number of children: Not on file Years of education: Not on file Highest education level: Not on file Occupational History Comment: retired Tobacco Use Smoking status: Former Current packs/day: 0.00 Types: Cigarettes Quit date: 1975 Years since quittin.0 Smokeless tobacco: Never Vaping Use Vaping status: Never Used Substance and Sexual Activity Alcohol use: Yes Comment: 2-3 drinks/week Drug use: No Sexual activity: Not on file Other Topics Concern Not on file Social History Narrative Not on file Social Needs Financial Resource Strain: Not on file Food Insecurity: Not on file Transportation Needs: Not on file Social Connections: Not on file Housing Stability: Not on file Review of Systems: Twelve systems reviewed and negative OBJECTIVE: Physical Exam: BP 128/60 (BP Site: Right Arm, BP Position: Sitting, BP Cuff Size: Large) | Pulse 64 | Temp 36.6 C (97.9 F) (Tympanic) | Resp 20 | Ht 1.676 m (5' 6") | Wt 95.4 kg (210 lb 4.8 oz) | SpO2 97% | BMI33.94 kg/m | BSA 2.11 m General: alert, healthy, and no distress Head: Normocephalic, No masses, lesions, tenderness or abnormalities Neck: supple, no JVD Heart: regular rate & rhythm, systolic click, and systolic murmur noted Lungs: normal respiratory rate and rhythm, lungs clear to auscultation Abdomen: abdomen soft and non-tender Back: no costovertebral angle tenderness Extremities: Trace edema Neuro Exam: alert & oriented x 3 with fluent speech, no focal motor/sensory deficits Skin: skin color, texture, turgor are normal, no rashes or significant lesions Recent Labs Units 01/28/24 1004 04/30/23 0946 08/29/22 0918 SODIUM - [facility] mmol/L 145 144 143 POTASSIUM - [facility] mmol/L 4.9 4.4 4.4 CHLORIDE - [facility] mmol/L 108* 108* 109* CO2 - [facility] mmol/L 25 26 26 ESTIMATED GLOMERULAR FILTRATION RATE - [facility] mL/min 31* 35* 36* BUN - [facility] mg/dL 31* 31* 26* CREATININE - [facility] mg/dL 2.1* 1.9* 1.9* Recent Labs Units 09/04/23 1008 04/30/23 0946 08/29/22 0918 HGB g/dL 13.1* 13.3* 11.9* Recent Labs Units 01/28/24 1004 04/30/23 0946 08/29/22 0918 CALCIUM - [facility] mg/dL 9.6 9.5 9.1 No results for input(s): "HGBA1C" in the last 82475 hours. No results for input(s): "ALBCREHIDE", "ALBCREURN", "MICROALBUMIN", "PROTCREATRAT" in the last 25456 hours. Assessment: Stage 3b chronic kidney disease (HCC) (Primary) Slowly progressive CKD stage IIIB with the most recent GFR of 31 creatinine of 2.1 as of January 2024. In 2020 he had a GFR of 40 with a creatinine of 1.7. So the decline in GFR has been fairly slow over the last 4 years. Etiology of CKD most likely multifactorial with hypotension and age. Does not have any diabetes. He has already been ordered to have a renal ultrasound which he should do. No evidence of gross fluid overload without any loop diuretics Also no NSAIDs and no acute symptoms of anything His functional status is very good for his age although his gait is quite slow and shuffling type Reviewed his current medication and are all appropriate for a GFR We have not checked his urine for some time so will do that today Recent blood work from January 2024 was extensively reviewed with the patient and also discussed the progressive change in GFR over the last few years Given that his GFR has declined fairly slowly over the last few years and lack of severe cardiovascular disease or diabetes, risk of ESRD still fairly low - NEPHROLOGY FOLLOW UP APPT (DEPARTMENT USE ONLY); Future; Expected date: 08/24/2024 - PROTEIN/ CREATININE RATIO, URINE; Future; Expected date: 02/25/2024 - URINALYSIS WITH MICROSCOPIC EXAM; Future; Expected date: 02/25/2024 HTN, goal below 140/90 Blood pressure is fully controlled on current regimen of losartan 100 amlodipine 2.5 rsjapjamqluzrr07.5 mg 3 times a week. Used to be on hydrochlorothiazide which was stopped November 2023 by Cardiology. GFR with her without hydrochlorothiazide appears to be same. For now will continue same He does have slight edema with the amlodipine 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 Done 30+ years ago and he is on chronic Coumadin. No recent significant bleeding Thanks for the consult Deon Mendez MD and Lala Putnam MD documented in this encounter Nursing Notes * Darline Hart LPN - 02/25/2024 12:59 PM EST Patient identified by verbal name and date of . Chief Complaint Patient presents with NEW PATIENT Chronic Kidney Disease (CKD) New Patient referral from Lala Gillis PA-C for CKD with Hx of hypertension Last labs 01/28/24 documented in this encounter Plan of Treatment Upcoming Encounters Date Type Department Care Team (Late st Contact Info) Description 03/05/2024 10:10 AM EST Laboratory Laboratory [facility] [place] [address] [place] [id number] [place], Lab [facility] [address] [facility] [place] [address] 03/06/2024 6:15 AM EST Anticoagulation Centralized Clinical Pharmacy Services, Jennifer Esteban [address] [place] [address] [place] [address] [facility], [address] [place] [address] 06/23/2024 11:00 AM EDT Office Visit Cardiology, [facility] [address] [place] [address] Lala Gillis PA-C [address] [place] [address] 08/17/2024 8:15 AM EDT Office Visit Dermatology [facility] [place] [address] [facility] [place] [address] Jose L Bell MD [address] [facility] [place] [address] 09/22/2024 2:20 PM EDT Office Visit Nephrology, [facility] [address] [facility] [place] [address] Flynn Putnam MD [address] [place] [address] Pending Results Name Type Priority Associated Diagnoses Date /Time PROTEIN/ CREATININE RATIO, URINE Lab Routine Stage 3b chronic kidney disease (HCC) 02/25/2024 1:42 PM EST Scheduled Orders Name Type Priority Associated Diagnoses Orde r Schedule PROTEIN/ CREATININE RATIO, URINE Lab Routine Stage 3b chronic kidney disease (HCC) Expected: 02/25/2024 (Approximate), Expires: 08/23/2024 Scheduled Procedures Name Priority Associated Diagnoses Date/Ti me COLONOSCOPY FLEXIBLE PROXIMAL DIAGNOSTIC Recall History of colon polyps Health Maintenance Due Date Last Done Comments Depression Screening 1955 Albumin/Creatinine Ratio 1961 DTap/Tdap Vaccines (1 - Tdap) 1962 Zoster Vaccines (3 of 3) 01/09/2019 11/14/2018, 05/2009 COVID-19 Vaccine ( - season) 2023 10/29/2023, 10/29/2023, 09/24/2022, Additional history [...] this encounter Medical Devices Implanted Type Area Cereal Popper Device Identifier Shelf Expiration Date Model / Serial / Lot Lens Intraoc 20.5 - [id number] - [id number] Implanted:Qty: 1 on 03/19/2019 by Jean Villanueva MD at OR [facility] Left: Eye [employer] 10/19/2023 [id number] / [id number] / Lens Intraoc 21.0 - [id number] - [id number] Implanted:Qty: 1 on 03/31/2019 by Jean Villanueva MD at OR [facility] Right: Eye [employer] 09/18/2023 [id number] / [id number] / [id number] Clip Quick 2.8mm 230cm - [id number] Implanted:Qty: 1 on 05/25/2020 by Keith Olivia MD at ENDOSCOPY [facility] [employer] 08/17/2022 [id number] / documented as of this encounter Procedures Procedure Name Priority Date/Time Associated Diagnosis Comments URINALYSIS WITH MICROSCOPIC EXAM Routine 02/25/2024 1:42 PM EST Stage 3b chronic kidney disease (HCC) documented in this encounter Results * (ABNORMAL) URINALYSIS WITH MICROSCOPIC EXAM (02/25/2024 1:42 PM EST) Color, Urine Yellow Light Yellow, Yellow, Dark Yellow 02/25/2024 1:57 PM EST LABORATORY [address] Clarity, Urine Clear Clear 02/25/2024 1:57 PM EST LABORATORY [address] Glucose, Urine Negative Negative mg/dL 02/25/2024 1:57 PM EST LABORATORY [address] Bilirubin, Urine Negative Negative 02/25/2024 1:57 PM EST [facility] [place] [address] Ketone, Urine Negative Negative mg/dL 02/25/2024 1:57 PM EST [facility] [place] [facility] Specific Surveyor, Urine 1.020 1.003 - 1.030 02/25/2024 1:57 PM EST [facility] [place] [facility]- Blood, Urine Trace(A) Negative 02/25/2024 1:57 PM EST [facility] [place] 56-02 pH, Urine 6.0 5.0 - 7.5 Units 02/25/2024 1:57 PM EST [facility] [place] [facility]- Protein, Urine Trace(A) Negative mg/dL 02/25/2024 1:57 PM EST [facility] [place] [facility]602 Urobilinogen, Urine 0.2 0.2, 1.0 mg/dL 02/25/2024 1:57 PM EST [facility] [place] 56-02 Nitrite, Urine Negative Negative 02/25/2024 1:57 PM EST [facility] [place] [facility]-02 Esterase, Urine Negative Negative 02/25/2024 1:57 PM EST [facility] 56-02 RBC, Urine 3-5(A) 0 - 2 /HPF 02/25/2024 1:57 PM EST [facility] 56- WBC, Urine 0-2 0 - 2 /HPF 02/25/2024 1:57 PM EST [facility] 56- Bacteria, Urine 0-25 0 - 25 /HPF 02/25/2024 1:57 PM EST [facility] 56- Urine Non-blood Collection / Unknown 02/25/2024 1:42 PM EST 02/25/2024 1:42 PM EST us Flynn Putnam MD LAB URINE ORDERABLES Final Res ult [facility] [address] [place] [address] documented in this encounter Visit Diagnoses Diagnosis Stage 3b chronic kidney disease (HCC)- Primary HTN, goal below 140/90 Unspecified essential hypertension 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 Heart valve replaced by other means documented in this encounter Care Teams Manufacturing Engineer Chief Relationship Specialty Start Date End Date Deon Mendez MD [address] [address] PCP - General Sports Medicine 12/11/23 documented as of this encounter
--- OUTSIDE RECORDS SUMMARY | 2024-03-05 23:33 | External Medical Summary | Summary of Care ---
Author Name Unknown Organization [facility] Address [address] [facility] [address] Phone [phone] Care Team Providers Care Shade Cutter Name Role Phone Deon Mendez MD Primary Care Provider [phone] Reason for Visit * Reason Comments Skin Check Pt presents for an a nnual FBSC, new spot/lesion located left side of bottom lipHx of AK, NMSC Encounter Details Date Type Department Care Team (Late st Contact Info) Description 02/27/2024 11:20 AM EST Office Visit Dermatology [facility] [place] [place] [address] [facility] [place] [address] Deborah Marrufo PA-C [address] [facility] [place] [address] Skin tumor*; Lump in neck; Skin exam, screening for cancer; Actinic keratosis; Hx of actinic keratosis; Scar Allergies No known active allergiesdocumented as of this encounter (statuses as of 02/27/2024) Medications MULTIVITAMINS PO CAPS Take by mouth daily. 0 12/11/19 08 Active OSTEO BI-FLEX ADV TRIPLE ST PO TABS Take by mouth 2 times a day. Active VITAMIN D 1000 UNITS PO CAPS Take 1 Capsule by mouth in the morning. 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 Anticoagulation management encounter 08/27/2001 documented as of this encounter (statuses as of 02/27/2024) Immunizations Name Administration Dates Next Due COVID-19 [...] as of this encounter Progress Notes * Deborah Marrufo PA-C - 02/27/2024 11:13 AM EST SUBJECTIVE: History of Present Illness: Nakul Bradford is a 78 year old male seen today for follow up of skin check. Date Last Appointment: 03/14/2022 (in office), Visit date not found (telemedicine) - Tanning bed history. + Blistering sunburns. No new or changing lesions, per pt. SKIN CANCER HX: BCC R chin 08/11, BCC R superior forehead 01/10, BCC L nasal skin 11/10, BCC crown 03/12, BCC L chest 02/2021, BCC L glabella 03/2020, and R upper arm 02/2020, BCC R upper lateral arm, R jehovah's witness 02/2013, possible BCC chest - unknown year (Lindy) REVIEW OF SYSTEMS: SKIN: No other new or changing moles. HEME/LYMPH: No new or enlarging lumps or bumps. MEDICA TIONS: Current Outpatient Medications Medication Sig Dispense Refill MULTIVITAMINS PO CAPS Take by mouth daily. 0 OSTEO BI-FLEX ADV TRIPLE ST PO TABS Take by mouth 2 times a day. VITAMIN D 1000 UNITS PO CAPS Take 1 Capsule by mouth in the morning. Amoxicillin 500 MG Oral Capsule (Amoxil) Uaqtbdd-Wlhmfxtfy-Birk 333-133-5 MG Oral Tablet Take by mouth [...] No current facility-administered medications for this visit. ALLERG IES: Patient has no known allergies. OBJECTIVE: GEN: Healthy, alert, no distress, appears oriented, pleasant, and cooperative. SKIN: Detailed exam of hair, face including lids and lips, neck, chest, abdomen, back, bilateral upper ext. (arm, hand, fingers), bilateral lower ext. (leg, foot, toes), and palpation of scalp completed and are normal except: 1. Scars- throughout 2. A. R preauricular- 8mm keratotic papule. 3. B. L neck- 7mm pink firm papule. Scar vs NMSC 4. R neck- approx 3cm firm mobile nodule ASSESS MENT/PLAN: 1. Hx NMSC - no evidence of recurrence Discussed sun protection with patient including proper use of sunscreens and protective clothing. ABCDs explained 2. A. ISK vs HAK vs NMSC. Previous biopsy 2022 shows ISK 3. B. Scar vs NMSC. Biopsies of the lesions noted above to establish and confirm diagnosis. The procedures, risks, benefits, alternatives and expected outcomes were discussed with the patient and consent was obtained. Time out called. Patient identified, procedure verified, site identified and verified. Patient and staff present in agreement. Areas prepped with alcohol and anesthetized with 0.5% lidocaine with epinephrine at 1:200,000 concentration. Shave biopsies of lesions performed. 20% AlCl and bandaging applied. Specimens sent to pathology. Patient instructed in routine post-op care. 4. Mass to R neck - He does not recall this mass being there in the past, but also says he doesn't routinely check his body - Hx of BCCs to right side of face but no SCCs, so less likely that this is a met from BCC - H[place] [place] at old photos, no photos since parotid gland removal that show this part of the neck - Called Dr. López's office to see if this mass is normal for him since his surgery, they would like to see him in person, pro scheduled for 03/10, I will call and check on him afterward, reminder set Discussed sun protection with patient including proper use of sunscreens (30spf, reapply every 2 hours) and protective clothing. Follow-up: 6 months There were no barriers tolearning and no other pain was related to today's visit. The patient and/or person accompanying patient demonstrates understanding of the visit and treatment. Deborah Marrufo PA-C 02/27/2024 11:13 AM documented in this encounter Nursing Notes * Joyce Skaggs MED ASSIST - 02/27/2024 11:12 AM EST Chief Complaint Patient presents with Skin Check Pt presents for an annual FBSC, new spot/lesion located left side of bottom lip Hx of AK, NMSC documented in this encounter Plan of Treatment Upcoming Encounters Date Type Department Care Team (Late st Contact Info) Description 03/05/2024 10:10 AM EST Laboratory Laboratory [facility] [address] [place] [id number] [place], [facility] [address] [place] [address] 03/05/2024 10:45 AM EST Imaging Radiology [facility] 132 [facility] [place] [address] 03/06/2024 6:15 AM EST Anticoagulation [facility] Clinical Pharmacy Services, Jennifer Esteban [address] [place] [address] [place] [address] [place] [address] 06/23/2024 11:00 AM EDT Office Visit Cardiology, [facility] [address] [place] [address] Lala Gillis PA-C [address] [place] [address] 09/22/2024 2:20 PM EDT Office Visit Nephrology, [facility] [address] [facility] [place] [address] Flynn Putnam MD [address] [facility] [place] [address] Pending Results Name Type Priority Associated Diagnoses Date /Time SURGICAL PATHOLOGY Pathology Routine Skin tumor 02/27/2024 1:23 PM EST Scheduled Procedures Name Priority Associated Diagnoses [...] this encounter Medical Devices Implanted Type Area Retail Advisor Device Identifier Shelf Expiration Date Model / Serial / Lot Lens Intraoc 20.5 - [id number] - [id number] Implanted:Qty: 1 on 03/19/2019 by Jean Villanueva MD at OR [facility] Left: Eye [employer]OM[employer] 10/19/2023 [id number] / [id number] / Lens Intraoc 21.0 - [id number] - [id number] Implanted:Qty: 1 on 03/31/2019 by Jean Villanueva MD at OR [facility] Right: Eye BAUSCH [employer] LOMB 09/18/2023 [id number] / [id number] / [id number] Clip Quick 2.8mm 230cm - [id number] Implanted:Qty: 1 on 05/25/2020 by Keith Olivia MD at ENDOSCOPY [facility] [employer] 08/17/2022 [id number] / / documented as of this encounter Visit Diagnoses Diagnosis Skin tumor- Primary Neoplasm of uncertain behavior of skin Lump in neck Swelling, mass, or lump in head and neck Skin exam, screening for cancer Screening for malignant neoplasm of the skin Actinic keratosis Hx of actinic keratosis Personal history of diseases of skin and subcutaneous tissue Scar Scar condition and fibrosis of skin documented in this encounter Care Teams Shade Cutter Relationship Specialty Start Date End Date Deon Mendez MD [address] [address] PCP - General Sports Medicine 12/11/23 documented as of this encounter
--- OUTSIDE RECORDS SUMMARY | 2024-03-05 23:33 | External Medical Summary ---
Author Name Unknown Address Unknown Organization [id number]:[facility] [place] [address] Laboratory Report Ordering Provider Test Date Status JONELLE SANTOYO 03/05/2024 10:40:22 Final Standing order for pt/inr. < br/>Please draw pt/inr every 1 to 4 weeks as requested
Results to [facility]

Warfarin Therapy
INR: 2.0-3.0 conventional anticoagulation
INR: 2.5-3.5 high intensity anticoagulation Observation Date Value Abnormality Reference (Units ) Status PT 03/05/2024 10:40:22 33.4 Above high normal 11 .6-15.2 (seconds) Final INR 03/05/2024 10:40:22 3.2 Above high normal 0. 8-1.2 Final Performing Location [facility] [address]
--- OUTSIDE RECORDS SUMMARY | 2024-03-05 23:33 | External Medical Summary ---
Author Name Unknown Address Unknown Organization [id number]:[facility] [place] [address] Laboratory Report Ordering Provider Test Date Status BENJI SOLIS 02/25/2024 13:42:55 Final Observation Date Value Abnormality Reference (Units ) Status Color of Urine by Auto 02/25/2024 13:42:55 Yellow Light Yellow, Yellow, Dark Yellow Final Clarity, Urine 02/25/2024 13:42:55 Clear Clear Final Glucose [Mass/volume] in Urine by Automated test strip 02/25/2024 13:42:55 Negative Negative (mg/dL) Final Bilirubin.total [Presence] in Urine by Automated test strip 02/25/2024 13:42:55 Negative Negative Final Ketones [Mass/volume] in Urine by Automated test strip 02/25/2024 13:42:55 Negative Negative (mg/dL) Final Specific gravity, Urine 02/25/2024 13:42:55 1.020 1.003-1.030 Final Hemoglobin [Presence] in Urine by Automated test strip 02/25/2024 13:42:55 Trace Abnormal Negative Final pH, Urine 02/25/2024 13:42:55 6.0 5.0-7.5 (Units) Final Protein [Mass/volume] in Urine by Automated test strip 02/25/2024 13:42:55 Trace Abnormal Negative (mg/dL) Final Urobilinogen [Mass/volume] in Urine by Automated test strip 02/25/2024 13:42:55 0.2 0.2, 1.0 (mg/dL) Final Nitrite [Presence] in Urine by Automated test strip 02/25/2024 13:42:55 Negative Negative Final Leukocyte esterase [Presence] in Urine by Automated test strip 02/25/2024 13:42:55 Negative Negative Final RBC, Urine 02/25/2024 13:42:55 3-5 Abnormal 0-2 (/HPF) Final WBC, Urine 02/25/2024 13:42:55 0-2 0-2 (/HPF) Final Bacteria [#/area] in Urine sediment by Microscopy high power field 02/25/2024 13:42:55 0-25 0-25 (/HPF) Final Performing Location [facility] [place] [address]
--- OUTSIDE RECORDS SUMMARY | 2024-03-05 23:33 | External Medical Summary | Summary of Care ---
Author Name Unknown Organization [facility] Address [address] [facility] [address] Phone [phone] Care Team Providers Care Cyber Reverse Engineer Name Role Phone Deon Mendez MD Primary Care Provider [phone] Reason for Visit * Reason Comments Skin Check Pt presents for an a nnual FBSC, new spot/lesion located left side of bottom lipHx of AK, NMSC Encounter Details Date Type Department Care Team (Late st Contact Info) Description 02/27/2024 11:20 AM EST Office Visit Dermatology [facility] [place] [address] [facility] [place] [address] Deborah Marrufo PA-C 200 [facility] [place] [address] Skin tumor*; Lump in neck; Skin exam, [...] MG Oral Tablet (Coumadin)Indicat ions: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,jail current use of anticoagulant [...] 02/2020, BCC R upper lateral arm, R caodaism 02/2013, possible BCC chest - unknown year (Lindy) Dyslipidemia, goal LDL below 70 05/31/2010 BMI 35-39 ISOLATED (SEE ACTUAL BMI) 08/01/2009 Overview (08/01/2009): Per 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 Amoxicillin 500 MG Oral Capsule (Amoxil) Crrbnpw-Gcxdkkwfe-Ggfu 333-133-5 MG Oral Tablet Take by mouth [...] parotid gland removal in 2015, [facility]. López [place] [place] Looked back at old photos, no [...] of AK, NMSC documented in this encounter Miscellaneous Notes * Addendum Note - Edyta Arciniega LPN - 02/27/2024 3:09 PM ESTAddended by: EDYTA ARCINIEGA on: 02/27/2024 03:09 PM Modules accepted: Orders documented in this encounter Plan of Treatment Upcoming Encounters Date Type Department Care Team (Late st Contact Info) Description 03/05/2024 10:10 AM EST Laboratory Laboratory [facility] [address] [place] [phone] Jose Encarnacion [address] [place] [address] 03/05/2024 10:45 AM EST Imaging Radiology [facility] 132 [facility] [place] [address] 03/06/2024 6:15 AM EST Anticoagulation [facility], Jennifer Esteban [address] [place] [address] [place] [address] [place] [address] 06/23/2024 11:00 AM EDT Office Visit Cardiology, [facility] [address] [place] [address] Lala Gillis PA-C [address] [place] [address] 09/22/2024 2:20 PM EDT Office Visit Nephrology, [facility] 200 [facility] [place] [address] Flynn Putnam MD 200 [facility] [place] [address] Pending Results Name Type Priority Associated Diagnoses [...] of 3) 01/09/2019 11/14/2018, 05/2009 COVID-19 Vaccine (2023- season) 2023 10/29/2023, 10/29/2023, 09/24/2022, Additional history [...] this encounter Medical Devices Implanted Type Area Leather Polisher Device Identifier Shelf Expiration Date Model / Serial / Lot Lens Intraoc 20.5 - [id number] - [id number] Implanted:Qty: 1 on 03/19/2019 by Jean Villanueva MD at OR [facility] Left: Eye BAUSCH [employer] LOMB 10/19/2023 [id number] / [id number] / Lens Intraoc 21.0 - [id number] - [id number] Implanted:Qty: 1 on 03/31/2019 by Jean Villanueva MD at OR [facility] Right: Eye BAUSCH [employer] LOMB 09/18/2023 [id number] / [id number] / [id number] Clip Quick 2.8mm 230cm - [id number] Implanted:Qty: 1 on 05/25/2020 by Keith Olivia MD at ENDOSCOPY [facility] [employer] 08/17/2022 [id number]-202UR.A / / documented as [...] skin documented in this encounter Care Teams Cyber Reverse Engineer Relationship Specialty Start Date End Date Deon Mendez MD [address] [place] [address] PCP - General Sports Medicine 12/11/23 documented as of this encounter
--- OUTSIDE RECORDS SUMMARY | 2024-03-05 23:33 | External Medical Summary | Summary of Care ---
Author Name Unknown Organization [facility] Address 100 [facility] [place] [address] Phone [phone] Care Team Providers Care Operating System Designer Name Role Phone Deon Mendez MD Primary Care Provider [phone] Reason for Referral * Evaluate & Treat - Unlimited Visits (Within 10 days (routine)) - Authorized Specialty Diagnoses / Procedures Referred By Peggy dunbar Referred To Contact Nephrology Diagnoses CKD (chronic kidney disease) stage 4, GFR 15-29 ml/min ([facility]) HTN, goal below 140/90 Ricky Jade PA-C [address] [place] [address] Phone: tel: fax: Referral ID Status Reason Start Date Expiration Date Visits Requested Visits Authorized [id number] Authorized Specialty Services Required 02/21/2024 999 999 Question Answer Referral Priority Within 10 days (routine) Where should this appointment be scheduled? [facility] What condition is this patient being seen for? Chronic kidney disease Reason for Visit * Reason Onset Date Comments Test Results 02/10/2024 Encounter Details Date Type Department Care Team (Late st Contact Info) Description 02/10/2024 Telephone Cardiology, [facility] [address] [place] [address] Ricky Jade PA-C [address] [place] [address] (work) Test Results Allergies No known active allergiesdocumented as of this encounter (statuses as of 02/21/2024) Medications MULTIVITAMINS PO CAPS daily 0 12/11/19 08 Active OSTEO BI-FLEX ADV TRIPLE ST PO TABS Take by mouth 2 times a day. Active VITAMIN D 1000 UNITS PO CAPS 1 tab daily Acti ve Amoxicillin 500 MG Oral Capsule (Amoxil) TAKE 4 CAPSULES BY MOUTH 1 HOUR PRIOR TO APPOINTMENT 07/11/19 Active Calcium-Magnesium -Zinc 333-133-5 MG Oral [...] DAY 90 Tablet 3 02/25/19 24 Active Warfarin Sodium 5 MG Oral Tablet (Coumadin)Indicat ions: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,retirement current use of anticoagulant therapy TAKE 7.5MG [...] week. 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 Anticoagulation management encounter 08/27/2001 documented as of this encounter (statuses as of 02/21/2024) Immunizations Name Administration Dates Next Due COVID-19 [...] as of this encounter Miscellaneous Notes * Addendum Note - Ricky aJde PA-C - 02/21/2024 9:01 AM ESTAddended by: RICKY JADE on: 02/21/2024 09:01 AM Modules accepted: Orders * Telephone Encounter - Ricky Jade PA-C - 02/21/2024 9:00 AM EST Referral signed along with the recommended labs and kidney US before this appt. These tests were prompted when arranging nephrology appt. * Addendum Note - Trey Tejeda LPN - 02/20/2024 1:11 PM ESTAddended by: TREY TEJEDA on: 02/20/2024 01:11 PM Modules accepted: Orders * Telephone Encounter - Trey Tejeda LPN - 02/20/2024 1:09 PM EST Patient agreeable to establishing with nephrology. * Telephone Encounter - Trey Tejeda LPN - 02/17/2024 9:17 AM EST Sent patient a letter to follow up on unread [employer] message. * Telephone Encounter - Trey Tejeda LPN - 02/13/2024 4:05 PM EST Sent patient a follow up [employer] message. Awaiting reply. * Telephone Encounter - Trey Tejeda LPN - 02/10/2024 1:32 PM EST Sent patient a [employer] message to make aware. Awaiting reply. ----- Message from Ricky Jade sent at 02/10/2024 1:27 PM EST ----- Ongoing renal insufficiency but stable. Does patient follow with outside nephrology? Given his degree of insufficiency and need for ongoing medications, would be helpful to have him follow with specialist if he does not have a kidney doctor. Place referral if agreeable (and does not currently see nephrology) Cholesterol looks good No changes at this time documented in this encounter Plan of Treatment Upcoming Encounters Date Type Department Care Team (Late st Contact Info) Description 03/05/2024 10:10 AM EST Laboratory Laboratory [facility] [place] [phone] [facility] 200 [facility] [place] [address] 03/06/2024 6:15 AM EST Anticoagulation [facility], Jennifer Esteban [address] [place] [address] [place] [address] [place] [address] 06/23/2024 11:00 AM EDT Office Visit Cardiology, [facility] 132 [place] [address] Ricky Jade PA-C 132 [place] [address] 08/17/2024 8:15 AM EDT Office Visit D[facility]atology [facility] [address] [place] [address] Jose L Bell MD [address] [place] [address] Scheduled Orders Name Type Priority Associated Diagnoses Orde r Schedule RENAL FUNCTION PANEL Lab Routine CKD (chronic kidney disease) stage 4, GFR 15-29 ml/min (HCC) HTN, goal below 140/90 Expected: 02/21/2024, Expires: 02/20/2025 URINALYSIS, REFLEX TO MICROSCOPIC Lab Routine CKD (chronic kidney disease) stage 4, GFR 15-29 ml/min (HCC) HTN, goal below 140/90 Expected: 02/21/2024, Expires: 02/20/2025 ALBUMIN / CREATININE RATIO, URINE Lab Routine CKD (chronic kidney disease) stage 4, GFR 15-29 ml/min (HCC) HTN, goal below 140/90 Expected: 02/21/2024, Expires: 02/20/2025 RENAL Medical Imaging Routine CKD (chronic kidney disease) stage 4, GFR 15-29 ml/min (HCC) HTN, goal below 140/90 Expected: 02/21/2024, Expires: 03/23/2025 Scheduled Procedures Name Priority Associated Diagnoses Date/Ti me COLONOSCOPY FLEXIBLE PROXIMAL DIAGNOSTIC Recall History of colon polyps Scheduled Referrals Name Type Priority Associated Diagnoses Orde r Schedule NEPHROLOGY REFERRAL OP Referral Within 10 days (routine) CKD (chronic kidney disease) stage 4, GFR 15-29 ml/min (HCC) HTN, goal below 140/90 Ordered: 02/21/2024 Health Maintenance Due Date Last Done Comments Depression Screening 1957 Albumin/Creatinine Ratio 1961 DTap/Tdap Vaccines (1 - Tdap) 1962 Zoster Vaccines (3 of 3) 01/09/2019 11/14/2018, 05/2009 COVID-19 Vaccine ( season) 2023 10/29/2023, 10/29/2023, 09/24/2022, Additional history exists GFR 01/27/2025 01/28/2024, 04/18, 08/29/2022, Additional history exists Colonoscopy 05/25/2025 05/25/2020, 040 08/2020, 09/28/2014, Additional history exists RETIRED - [...] this encounter Medical Devices Implanted Type Area Contract Administration Manager Device Identifier Shelf Expiration Date Model / Serial / Lot Lens Intraoc 20.5 - [id number] - [id number] Implanted:Qty: 1 on 03/19/2019 by Jean Villanueva MD at OR [facility] Left: Eye [employer] 10/19/2023 [id number] / [id number] / Lens Intraoc 21.0 - [id number] - [id number] Implanted:Qty: 1 on 03/31/2019 by Jean Villanueva MD at OR [facility] Right: Eye [employer] 09/18/2023 [id number] / [id number] / [id number] Clip Quick 2.8mm 230cm - [id number] Implanted:Qty: 1 on 05/25/2020 by Keith Olivia MD at ENDOSCOPY [facility] [employer] 08/17/2022 [id number]-202UR.A / / documented as of this encounter Visit Diagnoses Diagnosis CKD (chronic kidney disease) stage 4, GFR 15-29 ml/min (HCC)- Primary Chronic kidney disease, Stage IV (severe) HTN, goal below 140/90 Unspecified essential hypertension documented in this encounter Care Teams Operating System Designer Relationship Specialty Start Date End Date Deon Mendez [place] [address], [place] [address] PCP - General Sports Medicine 12/11/23 documented as of this encounter
--- OUTSIDE RECORDS SUMMARY | 2024-03-05 23:33 | External Medical Summary ---
Author Name Unknown Address Unknown Organization K01[place] [place] [address] [place] [address] Laboratory Report Ordering Provider Test Date Status BENJI SOLIS 02/25/2024 13:42:50 Final Normal: <150 mg/ g creatinine
High: 150-500 mg/g creatinine
Very High: >500 mg/g creatinine
Nephrotic: >3000 mg/g creatinine Observation Date Value Abnormality Reference (Units ) Status Protein/Creatinine [Ratio] in Urine 02/25/2024 13:42:50 174 Above high normal <150 (mg/g ) Final Protein, Urine 02/25/2024 13:42:50 20 (mg/dL) Final Creatinine, Urine 02/25/2024 13:42:50 115 (mg/dL) Final Performing Location [facility] [place] [address] [place] [address]
--- OUTSIDE RECORDS SUMMARY | 2024-03-05 23:33 | External Medical Summary | Summary of Care ---
Author Name Unknown Organization [facility] Address [address] [facility] [address] Phone [phone] Care Team Providers Care Iso Coordinator Name Role Phone Deon Mendez MD Primary Care Provider [phone] Reason for Visit * Reason Onset Date Comments Test Results 02/27/2024 Encounter Details Date Type Department Care Team (Late st Contact Info) Description 02/27/2024 Telephone NephrologySiria 200 [facility] [place] [address] Flynn Putnam MD 200 [facility] [place] [address] Test Results Allergies No known active allergiesdocumented [...] MG Oral Tablet (Coumadin)Indicat ions: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,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 TAKE 7.5MG [...] 02/2020, BCC R upper lateral arm, 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, possible BCC chest - unknown year (Lindy) Dyslipidemia, goal LDL below 70 05/31/2010 BMI 35-39 ISOLATED (SEE ACTUAL BMI) 08/01/2009 Overview (08/01/2009): Per Obesity Protocol, #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 1 04/04/2002 [...] encounter Miscellaneous Notes * Telephone Encounter - Darline Hart LPN - 02/27/2024 8:23 AM EST LMM on identified line Labs are unremarkable Pt is instructed to return call to nurse for any qusetions or concerns he may have * Telephone Encounter - Darline Hart LPN - 02/27/2024 8:22 AM EST ----- Message from Flynn Putnam MD sent at 02/26/2024 10:44 AM EST ----- Urine tests unremarkable documented in this encounter Plan of Treatment Upcoming Encounters Date Type Department Care Team (Late st Contact Info) Description 02/27/2024 11:20 AM EST Office Visit Dermatology [facility] [address] [place] [address] Deborah Marrufo PA-C [address] [place] [address] 03/05/2024 10:10 AM EST Laboratory Laboratory [facility] [address] [place] [id number] [place], Lab Scenery [address] [place] [address] 03/05/2024 10:45 AM EST Imaging Radiology [facility] [place] [address] 03/06/2024 6:15 AM EST Anticoagulation Centralized Clinical Pharmacy Services, Jennifer Esteban [address] [place] [address] [place] [address] [facility], [address] [place] [address] 06/23/2024 11:00 AM EDT Office Visit Cardiology, [facility] 132 [facility] [place] [address] Lala Gillis, PAMarty 132 [facility] [place] [address] 09/22/2024 2:20 PM EDT Office Visit Nephrology, Siria Encarnacion [address] [place] [address] Flynn Putnam MD 200 [facility] [place] [address] Scheduled Procedures Name Priority Associated Diagnoses Date/Ti [...] this encounter Medical Devices Implanted Type Area Cart Pusher Device Identifier Shelf Expiration Date Model / Serial / Lot Lens Intraoc 20.5 - [id number] - [id number] Implanted:Qty: 1 on 03/19/2019 by Jean Villanueva MD at OR [facility] Left: Eye [employer]OM[employer] 10/19/2023 [id number] / [id number] / Lens Intraoc 21.0 - [id number] - [id number] Implanted:Qty: 1 on 03/31/2019 by Jean Villanueva MD at OR [facility] Right: Eye [employer] LOMB 09/18/2023 [id number] / [id number] / [id number] Clip Quick 2.8mm 230cm - [id number] Implanted:Qty: 1 on 05/25/2020 by Keith Olivia MD at [facility] [employer] 08/17/2022 [id number]-202UR.A / / documented as of this encounter Care Teams Iso Coordinator Relationship Specialty Start Date End Date Deon Mendez MD [address] [address] PCP - General Sports Medicine 12/11/23 documented as of this encounter
--- OUTSIDE RECORDS SUMMARY | 2024-03-05 23:33 | External Medical Summary | Summary of Care ---
Author Name Unknown Organization [facility] Address [address] [facility] [address] Phone [phone] Care Team Providers Care Transplant Coordinator Name Role Phone Deon Mendez MD Primary Care Provider [phone] Reason for Visit * Reason Comments Skin Check Pt presents for an a nnual FBSC, new spot/lesion located left side of bottom lipHx of AK, NMSC Encounter Details Date Type Department Care Team (Late st Contact Info) Description 02/27/2024 11:20 AM EST Office Visit Dermatology [facility] Alysha Thurmond 200 [facility] [place] [address] Deborah Marrufo PA-C 200 [facility] [place] [address] Skin tumor*; Lump in neck; Skin exam, [...] MG Oral Tablet (Coumadin)Indicat ions: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,group home current use of anticoagulant therapy TAKE 7.5MG [...] 02/2020, BCC R upper lateral arm, R worship 02/2013, possible BCC chest - unknown year (Lindy) Dyslipidemia, goal LDL below 70 05/31/2010 BMI 35-39 ISOLATED (SEE ACTUAL BMI) 08/01/2009 Overview (08/01/2009): Per Obesity Protocol, #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 Amoxicillin 500 MG Oral Capsule (Amoxil) Wfvcinu-Fyghpolfj-Zysn 333-133-5 MG Oral Tablet Take by mouth [...] - Hx of parotid gland removal in 2016, [facility]. López [facility] - Looked back at old photos, no [...] Description 03/05/2024 10:10 AM EST Laboratory Laboratory [facility] State Dhara Encarnacion [address] [place] [phone] Jose Encarnacion [facility] [address] [place] [address] 03/05/2024 10:45 AM EST Imaging Radiology [facility] [address] [facility] [place] [address] 03/06/2024 6:15 AM EST Anticoagulation Centralized Clinical Pharmacy Services, Jennifer Esteban [address] [place] [address] [place] [address] [facility], [address] [place] [address] 06/23/2024 11:00 AM EDT Office Visit Cardiology, [facility] [address] [facility] [place] [address] Lala Gillis PA-C [address] [place] [address] 09/22/2024 2:20 PM EDT Office Visit Nephrology, [facility] [address] [place] [address] Flynn Putnam MD [address] [place] [address] Pending Results Name Type Priority Associated Diagnoses [...] this encounter Medical Devices Implanted Type Area Preservative Filler Machine Operator Device Identifier Shelf Expiration Date Model / Serial / Lot Lens Intraoc 20.5 - [id number] - [id number] Implanted:Qty: 1 on 03/19/2019 by Jean Villanueva MD at OR [facility] Left: Eye [employer]OMB 10/19/2023 [id number] / [id number] / Lens Intraoc 21.0 - [id number] - [id number] Implanted:Qty: 1 on 03/31/2019 by Jean Villanueva MD at OR [facility] Right: Eye [employer]OM[employer] 09/18/2023 [id number] / [id number] / [id number] Clip Quick 2.8mm 230cm - [id number] Implanted:Qty: 1 on 05/25/2020 by Keith Olivia MD at ENDOSCOPY [facility] [employer] 08/17/2022 HX-202UR.A / / documented as of this encounter Procedures Procedure Name Priority Date/Time Associated Diagnosis Comments DERM IMAGE (SITE) Routine 02/27/2024 Skin tumor documented in this encounter Results * DERM IMAGE (SITE) (02/27/2024) 02/27/2024 us Deborah Marrufo PA-C DIGITAL PHOTOGRAPHY Fin al Result documented in this encounter Visit Diagnoses Diagnosis Skin tumor- [...] skin documented in this encounter Care Teams Transplant Coordinator Relationship Specialty Start Date End Date Deon Mendez MD [address] [address] PCP - General Sports Medicine 12/11/23 documented as of this encounter
--- OUTSIDE RECORDS SUMMARY | 2024-03-05 23:34 | External Medical Summary | Summary of Care ---
Author Name Unknown Organization [facility] Address [address] [facility] [place] [address] Phone [phone] Care Team Providers Care Rn Burn Name Role Phone Deon Mendez MD Primary Care Provider [phone] Reason for Visit * Reason Comments eRx-Medication Refill Encounter Details Date Type Department Care Team (Late st Contact Info) Description 02/11/2024 Refill Cardiology, [facility] [address] [place] [address] Ricky Jade PA-C [address] [place] [address] HTN, goal below 140/90 Allergies No known active allergiesdocumented as of this encounter (statuses as of 02/13/2024) Medications MULTIVITAMINS PO CAPS daily 0 008 Active OSTEO BI-FLEX ADV TRIPLE ST PO TABS Take by mouth 2 times a day. Active VITAMIN D 1000 UNITS PO CAPS 1 tab daily Acti ve Amoxicillin 500 MG Oral Capsule (Amoxil) TAKE 4 CAPSULES BY MOUTH 1 HOUR PRIOR TO APPOINTMENT 023 Active Calcium-Magnesiu m-Zinc 333-133-5 MG Oral Tablet Take by mouth [...] PM Extra Strength 500-25 MG Oral Tablet (diphenhydrAMINE -APAP (sleep)) Take 1 Tablet by mouth at bedtime. Active Losartan Potassium 100 MG Oral Tablet (Cozaar)Indicati ons:First degree AV block,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,HTN, goal below 140/90 TAKE 1 TABLET BY MOUTH EVERY DAY 90 Tablet 3 024 Active Warfarin Sodium 5 MG Oral Tablet (Coumadin)Indica tions: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,[facility] current use of anticoagulant therapy TAKE 7.5MG ON SATURDAY THEN 5MG ALL OTHER DAYS OF WEEK OR DIRECTED BY ANTICOAGULATION PHARMACIST 102 Tablet 3 024 Active Simvastatin 20 MG Oral Tablet (Zocor)Indicatio ns:Dyslipidemia, goal LDL below 70 TAKE 1 TABLET BY MOUTH EVERYDAY AT BEDTIME 90 Tablet 3 024 Active Spironolactone 25 MG Oral Tablet (Aldactone)Indic ations:HTN, goal below 140/90,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,Enla rged aorta (HCC),Abdominal aortic aneurysm (AAA) without rupture (HCC) Take 1/2 tablet by mouth three days per week. 30 Tablet 3 024 Active amLODIPine Besylate 2.5 MG Oral Tablet (Norvasc)Indicat ions:HTN, goal below 140/90 TAKE 1 TABLET BY MOUTH EVERY DAY IN THE EVENING 90 Tablet 3 024 Active amLODIPine Besylate 2.5 MG Oral Tablet (Norvasc)Indicat ions:HTN, goal below 140/90 TAKE 1 TABLET BY MOUTH EVERY DAY IN THE EVENING 90 Tablet 3 024 2023 Discontinued documented as of this encounter (statuses as of 02/13/2024) Active Problems Problem Noted Date Diagnosed Date [...] 08/01/2009 Overview (08/01/2009): Per Obesity Protocol, #19 [facility] current use of anticoagulant therapy 1 04/04/2002 Overview (11/19/2016): ICD-10 update of inactive term 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 08/27/2001 Overview (05/29/2002): [facility] Anticoagulation management encounter 08/27/2001 documented as of this encounter (statuses as of 02/13/2024) Immunizations Name Administration Dates Next Due COVID-19 [...] Miscellaneous Notes * Telephone Encounter - Temi Rodarte [facility] - 02/13/2024 1:39 PM ESTSigned Prescriptions: Disp Refills amLODIPine Besylate 2.5 MG Oral Tablet (No*90 Tab*3 Sig: TAKE 1 TABLET BY MOUTH EVERY DAY IN THE EVENINGAuthorizing Provider: RICKY JADE User: TEMI RODARTE documented in this encounter Plan of Treatment Upcoming Encounters Date Type Department Care Team (Late st Contact Info) Description 02/14/2024 6:15 AM EST Anticoagulation Centralized Clinical Pharmacy Services, Jennifer Esteban [address] [place] [address] [place] [address] [facility], [address] [place] [address] 06/23/2024 11:00 AM EDT Office Visit Cardiology, [facility] [address] [place] [address] Ricky Jade PA-C [address] [place] [address] 08/17/2024 8:15 AM EDT Office Visit Dermatology [facility] 200 [facility] [place] [address] Jose L Bell MD 200 [facility] [place] [address] Scheduled Procedures Name Priority Associated Diagnoses Date/Ti [...] this encounter Medical Devices Implanted Type Area Housekeeping Director Device Identifier Shelf Expiration Date Model / Serial / Lot Lens Intraoc 20.5 - [id number] - [id number] Implanted:Qty: 1 on 03/19/2019 by Jean Villanueva MD at OR [facility] Left: Eye [employer]CH [employer]OMB 10/19/2023 [id number] / [id number] / Lens Intraoc 21.0 - [id number] - [id number] Implanted:Qty: 1 on 03/31/2019 by Jean Villanueva MD at OR [facility] Right: Eye [employer]CH [employer] LOMB 09/18/2023 [id number] / [id number] / [id number] Clip Quick 2.8mm 230cm - [id number] Implanted:Qty: 1 on 05/25/2020 by Keith Olivia MD at ENDOSCOPY [facility] [employer] 08/17/2022 [id number]-202UR.A / / documented as of this encounter Visit Diagnoses Diagnosis HTN, goal below 140/90 Unspecified essential hypertension documented in this encounter Care Teams Rn Burn Relationship Specialty Start Date End Date Deon Mendez MD [address] [place] [address] PCP - General Sports Medicine 12/11/23 documented as of this encounter
--- OUTSIDE RECORDS SUMMARY | 2024-03-05 23:34 | External Medical Summary | Summary of Care ---
Author Name Unknown Organization [facility] Address [address] [facility] [place] [address] Phone [phone] Care Team Providers Care Mucker Operator Name Role Phone Deon Mendez MD Primary Care Provider [phone] Reason for Visit * Reason Onset Date Comments Test Results 02/10/2024 Encounter Details Date Type Department Care Team (Late st Contact Info) Description 02/10/2024 Telephone Cardiology, [facility] [address] [place] [address] Lala Gillis PA-C [address] [place] [address] Test Results Allergies No known active allergiesdocumented as of this encounter (statuses as of 02/17/2024) Medications MULTIVITAMINS PO CAPS daily 0 12/11/19 [...] as of this encounter (statuses as of 02/17/2024) Active Problems Problem Noted Date Diagnosed Date [...] 02/2020, BCC R upper lateral arm, R yazidism 02/2013, possible BCC chest - unknown year [...] as of this encounter (statuses as of 02/17/2024) Immunizations Name Administration Dates Next Due COVID-19 [...] encounter Miscellaneous Notes * Telephone Encounter - Trey Tejeda LPN - 02/17/2024 9:17 AM EST Sent patient a letter to follow up on unread [employer] message. * Telephone Encounter - Trey Tejeda LPN - 02/13/2024 4:05 PM EST Sent patient a follow up [employer] message. Awaiting reply. * Telephone Encounter - Trey Tejeda LPN - 02/10/2024 1:32 PM EST Sent patient a [employer] message to make aware. Awaiting reply. ----- Message from Lala Gillis sent at 02/10/2024 1:27 PM EST ----- [...] Description 03/05/2024 10:10 AM EST Laboratory Laboratory [facility] Alysha Sutton 200 [facility] [place] [phone] [address] [place] [address] 03/06/2024 6:15 AM EST Anticoagulation Centralized Clinical Pharmacy Services, Jennifer Esteban [address] [place] [address] [place] Rodriguez [address] [place] [address] 06/23/2024 11:00 AM EDT Office Visit Cardiology, [facility] 132 [place] [address] Lala Gillis PA-C [address] [place] [address] 08/17/2024 8:15 AM EDT Office Visit Dermatology [facility] Sutton 200 [facility] [place] [address] Jose L Bell MD 200 [facility] [place] [address] Scheduled Procedures Name Priority Associated Diagnoses Date/Ti [...] this encounter Medical Devices Implanted Type Area Civil Rights Representative Device Identifier Shelf Expiration Date Model / Serial / Lot Lens Intraoc 20.5 - [id number] - [id number] Implanted:Qty: 1 on 03/19/2019 by Jean Villanueva MD at OR [facility] Left: Eye [employer]OM[employer] 10/19/2023 [id number] / [id number] / Lens Intraoc 21.0 - [id number] - [id number] Implanted:Qty: 1 on 03/31/2019 by Jean Villanueva MD at OR [facility] Right: Eye [employer]OM[employer] 09/18/2023 [id number] / [id number] / [id number] Clip Quick 2.8mm 230cm - [id number] Implanted:Qty: 1 on 05/25/2020 by Keith Olivia MD at ENDOSCOPY [facility] [employer] 08/17/2022 HX-202UR.A / / documented as of this encounter Care Teams Mucker Operator Relationship Specialty Start Date End Date Deon Mendez MD [address] [place] [address] PCP - General Sports Medicine 12/11/23 documented as of this encounter
--- OUTSIDE RECORDS SUMMARY | 2024-03-05 23:34 | External Medical Summary ---
Author Name Unknown Address Unknown Organization K09:[facility] [place] [place] [address] Laboratory Report Ordering Provider Test Date Status JONELLE SANTOYO 02/13/2024 09:51:45 Final Standing order for pt/inr. < br/>Please draw pt/inr every 1 to 4 weeks as requested
Results to [facility]

Warfarin Therapy
INR: 2.0-3.0 conventional anticoagulation
INR: 2.5-3.5 high intensity anticoagulation Observation Date Value Abnormality Reference (Units ) Status PT 02/13/2024 09:51:45 27.2 Above high normal 11 .6-15.2 (seconds) Final INR 02/13/2024 09:51:45 2.5 Above high normal 0. 8-1.2 Final Performing Location [facility] [place] [address]
--- OUTSIDE RECORDS SUMMARY | 2024-03-05 23:34 | External Medical Summary | Summary of Care ---
Author Name Unknown Organization [facility] Address [address] [facility] [address] Phone [phone] Care Team Providers Care Alignment Mechanic Name Role Phone Deon Mendez MD Primary Care Provider [phone] Reason for Visit * Reason Comments Outpatient Testing Encounter Details Date Type Department Care Team (Late st Contact Info) Description 02/13/2024 10:10 AM EST Laboratory Laboratory [facility] [place] [address] [place] [phone] [facility] Lab Scenery [address] [place] [address] 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 Allergies No known active allergiesdocumented as of this encounter (statuses as of 02/13/2024) Medications MULTIVITAMINS PO CAPS daily 0 12/11/19 08 Active OSTEO BI-FLEX ADV TRIPLE ST PO TABS Take by mouth 2 times a day. Active VITAMIN D 1000 UNITS PO CAPS 1 tab daily Acti ve Amoxicillin 500 MG Oral Capsule (Amoxil) TAKE 4 CAPSULES BY MOUTH 1 HOUR PRIOR TO APPOINTMENT 07/11/19 23 Active Calcium-Magnesium -Zinc 333-133-5 MG [...] Active amLODIPine Besylate 2.5 MG Oral Tablet (Norvasc)Indicati ons:HTN, goal below 140/90 TAKE 1 TABLET BY MOUTH EVERY DAY IN THE EVENING 90 Tablet 3 02/22/19 24 Active Losartan Potassium 100 MG Oral Tablet (Cozaar)Indicatio ns:First degree AV block,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,HTN, goal below 140/90 TAKE 1 TABLET BY MOUTH EVERY DAY 90 Tablet 3 02/25/19 24 Active Warfarin Sodium 5 MG Oral Tablet (Coumadin)Indicat ions: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,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 TAKE 7.5MG [...] 02/2020, BCC R upper lateral arm, R jew 02/2013, possible BCC chest - unknown year (Lindy) Dyslipidemia, goal LDL below 70 05/31/2010 BMI 35-39 ISOLATED (SEE ACTUAL BMI) 08/01/2009 Overview (08/01/2009): Per Obesity Protocol, #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 [place] [address] Jose L Bell MD [address] [facility] [place] [address] Pending Results Name Type Priority Associated Diagnoses Date /Time PT INR Lab Routine 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 02/13/2024 9:51 AM EST Scheduled Procedures Name Priority Associated [...] this encounter Medical Devices Implanted Type Area Manager Helpdesk Device Identifier Shelf Expiration Date Model / Serial / Lot Lens Intraoc 20.5 - [id number] - [id number] Implanted:Qty: 1 on 03/19/2019 by Jean Villanueva MD at OR [facility] Left: Eye [employer]OM[employer] 10/19/2023 [id number] / [id number] / Lens Intraoc 21.0 - [id number] - [id number] Implanted:Qty: 1 on 03/31/2019 by Jean Villanueva MD at OR [facility] Right: Eye [employer]CH [employer]OM[employer] 09/18/2023 [id number] / [id number] / [id number] Clip Quick 2.8mm 230cm - [id number] Implanted:Qty: 1 on 05/25/2020 by [facility] [employer] 08/17/2022 HX-202UR.A / / documented as of this encounter Visit Diagnoses Diagnosis 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 Heart valve replaced by other means documented in this encounter Care Teams Alignment Mechanic Relationship Specialty Start Date End Date Deon Mendez MD [address] [place] [address] PCP - General Sports Medicine 12/11/23 documented as of this encounter
--- OUTSIDE RECORDS SUMMARY | 2024-03-05 23:34 | External Medical Summary | Summary of Care ---
Author Name Unknown Organization [facility] Address [address] [facility] [place] [address] Phone [phone] Care Team Providers Care Product Info Specialist Name Role Phone Deon Mendez MD Primary Care Provider [phone] Reason for Visit * Reason Onset Date Comments Test Results 02/10/2024 Encounter Details Date Type Department Care Team (Late st Contact Info) Description 02/10/2024 Telephone Cardiology, 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 Anticoagulation management encounter 08/27/2001 documented as of this encounter (statuses as of 02/20/2024) Immunizations Name Administration Dates Next Due COVID-19 [...] encounter Miscellaneous Notes * Addendum Note - Trey Tejeda LPN - 02/20/2024 1:11 PM ESTAddended by: TREY TEJEDA on: 02/20/2024 01:11 PM Modules accepted: Orders * Telephone Encounter - Trey Tejeda LPN - 02/20/2024 1:09 PM EST Patient agreeable to establishing with nephrology. * Telephone Encounter - Trey Tejeda LPN - 02/17/2024 9:17 AM EST Sent patient a letter to follow up on unread MyChart message. * Telephone Encounter - Trey Tejeda LPN - 02/13/2024 4:05 PM EST Sent patient a follow up MyChart message. Awaiting reply. * Telephone Encounter - Trey Tejeda LPN - 02/10/2024 1:32 PM EST Sent patient a MyChart message to make aware. Awaiting reply. ----- [...] 03/05/2024 10:10 AM EST Laboratory Laboratory Scenery [place] Dhara Encarnacion [address] [place] [id number] [place], Lab Scenery [address] [place] [address] 03/06/2024 6:15 AM EST Anticoagulation Central[facility] Services, Jennifer Esteban [address] [place] [address] [place] [address] [place] [address] 06/23/2024 11:00 AM EDT Office Visit Cardiology, [facility] [address] [place] [address] Lala Gillis, NICK [address] [place] [address] 08/17/2024 8:15 AM EDT Office Visit Dermatology [facility] [address] [facility] [place] [address] Jose L Bell MD [address] [facility] [place] [address] Scheduled Procedures Name Priority Associated Diagnoses Date/Ti [...] this encounter Medical Devices Implanted Type Area Adjunct English Instructor Device Identifier Shelf Expiration Date Model / Serial / Lot Lens Intraoc 20.5 - [id number] - [id number] Implanted:Qty: 1 on 03/19/2019 by Jean Villanueva MD at OR [facility] Left: Eye [employer]OM[employer] 10/19/2023 [id number] / [id number] / Lens Intraoc 21.0 - [id number] - [id number] Implanted:Qty: 1 on 03/31/2019 by Jean Villanueva MD at OR [facility] Right: Eye BAUSCH [employer] LOMB 09/18/2023 [id number] / [id number] / [id number] Clip Quick 2.8mm 230cm - [id number] Implanted:Qty: 1 on 05/25/2020 by Keith Olivia MD at ENDOSCOPY [facility] [employer] 08/17/2022 [id number] / / documented as of this encounter Care Teams Product Info Specialist Relationship Specialty Start Date End Date Deon Mendez MD [address] [place] [address] PCP - General Sports Medicine 12/11/23 documented as of this encounter
--- OUTSIDE RECORDS SUMMARY | 2024-03-05 23:34 | External Medical Summary | Summary of Care ---
Author Name Unknown Organization [facility] Address [address] [facility] [place] [address] Phone [phone] Care Team Providers Care Labor Relations Specialist Name Role Phone Deon Mendez MD Primary Care Provider Reason for Visit * Reason Comments Dosage Adjustment Via Phone (anticoag Cl inic) Encounter Details Date Type Department Care Team (Late st Contact Info) Description 02/14/2024 6:15 AM EST Anticoagulation [facility], Jennifer Esteban [address] [place] [address] [place] [address] [place] [address] 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* Allergies No known active allergiesdocumented as of this encounter (statuses as of 02/14/2024) Medications MULTIVITAMINS PO CAPS daily 0 12/11/19 [...] MG Oral Tablet (Coumadin)Indicat ions: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,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 30 Tablet 3 01/23/20 24 Active amLODIPine Besylate 2.5 MG Oral Tablet (Norvasc)Indicati ons:HTN, goal below 140/90 TAKE 1 TABLET BY MOUTH EVERY DAY IN THE EVENING 90 Tablet 3 02/13/20 24 Active documented as of this encounter (statuses as of 02/14/2024) Active Problems Problem Noted Date Diagnosed Date [...] 02/2020, BCC R upper lateral arm, R tenriism 02/2013, possible BCC chest - unknown year (Lindy) Dyslipidemia, goal LDL below 70 05/31/2010 BMI 35-39 ISOLATED (SEE ACTUAL BMI) 08/01/2009 Overview (08/01/2009): Per Obesity Protocol, #19 manager intermediate current use of anticoagulant therapy 1 04/04/2002 Overview (11/19/2016): ICD-10 update of inactive term 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 08/27/2001 Overview (05/29/2002): [facility] Anticoagulation management encounter 08/27/2001 documented as of this encounter (statuses as of 02/14/2024) Immunizations Name Administration Dates Next Due COVID-19 [...] as of this encounter Progress Notes * Claudia Glaser, Kandis - 02/14/2024 1:37 PM EST Contacts Contact Date/Time Type Contact Phone/Fax 02/14/2024 01:33 PM EST Phone (Outgoing) Nakul Bradford (Self) [phone] (M) Spoke to Patient Subjective Patient Findings Negatives: Signs/symptoms of bleeding, Change in health, Change in activity, Upcoming invasive procedure, Missed doses, Extra doses, Change in medications, Change in diet/appetite, Bruising Advised patient to contact Anticoagulation Clinic if any unusual bruising or bleeding, recent illness, changes in medication, or questions/concerns. PT/INR results, Coumadin dose instructions, and next PT/INR date communicated as noted by Pharmacist: Yes Claudia Glaser CPhT 02/14/2024, 1:37 PM * Vira Cordero RPh - 02/14/2024 9:15 AM EST Coumadin Clinic (region specific) Objective Current Warfarin Dose As of 02/14/2024 Warfarin maintenance plan: 5 mg (5 mg x 1) every day INR Result As of 02/14/2024 INR goal: 2.5-3.5 INR used for dosin.5 (02/13/2024) Assessment & Plan Warfarin Plan As of 02/14/2024 Full warfarin instructions: 5 mg every day No change documented: Vira Cordero RPh Next INR check: 03/05/2024 Repeat PT/INR in 3 week(s) Weekly dose: not changed Additional Dosing Information: Description Siria Soto to contact patient with dose instructions as noted. Vira Cordero RPh 02/14/2024, 9:16 AM documented in this encounter Plan of Treatment Upcoming Encounters Date Type Department Care Team (Late st Contact Info) Description 03/05/2024 10:10 AM EST Laboratory Laboratory State Dhara Burrell [address] [place] [phone] [facility] [address] [place] [address] 03/06/2024 6:15 AM EST Anticoagulation Centralized Clinical Pharmacy Services, Jennifer Esteban [address] [place] [address] [place] [address] [place] [address] 06/23/2024 11:00 AM EDT Office Visit Cardiology, [facility] [address] [place] [address] Lala Gillis PA-C [address] [place] [address] 08/17/2024 8:15 AM EDT Office Visit Dermatology [facility] [address] [facility] [place] [address] Jose L Bell MD [address] [facility] [place] [address] Scheduled Procedures Name Priority Associated Diagnoses Date/Ti [...] this encounter Medical Devices Implanted Type Area Jacquard Lace Weaver Device Identifier Shelf Expiration Date Model / Serial / Lot Lens Intraoc 20.5 - [id number] - [id number] Implanted:Qty: 1 on 03/19/2019 by Jean Villanueva MD at OR [facility] Left: Eye [employer]OM[employer] 10/19/2023 [id number] / [id number] / Lens Intraoc 21.0 - [id number] - [id number] Implanted:Qty: 1 on 03/31/2019 by Jean Villanueva MD at OR [facility] Right: Eye [employer]OM[employer] 09/18/2023 [id number] / [id number] / [id number] Clip Quick 2.8mm 230cm - [id number] Implanted:Qty: 1 on 05/25/2020 by Keith Olivia MD at ENDOSCOPY [facility] [employer] 08/17/2022 [id number] / documented as of this encounter Visit Diagnoses Diagnosis 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- Primary Heart valve replaced by other means documented in this encounter Care Teams Labor Relations Specialist Relationship Specialty Start Date End Date Deon Mendez MD [address] [address] PCP - General Sports Medicine 12/11/23 documented as of this encounter
[2024-03-06] MEDS ORDERED: DOCUSATE SODIUM 100 MG CAP PO PRN (00:21)
[2024-03-06] MEDS ORDERED: MELATONIN 3 MG TAB PO PRN (00:21)
[2024-03-06] MEDS ORDERED: ACETAMINOPHEN 325 MG TAB PO PRN (00:21)
[2024-03-06] MEDS: SIMVASTATIN 20 MG TAB PO SCH (01:03)
[2024-03-06 06:27] LABS: Basophils # (auto) 0.05 K/uL (0.00-0.20); Basophils % (auto) 0.8 %; Eosinophils # (auto) 0.39 K/uL (0.00-0.50); Hematocrit (blood only) 36.7 % (42.0-52.0); Hemoglobin 12.5 g/dl (14.0-18.0); Immature Granulocytes # (auto) 0.03 K/uL (0.01-0.20); Immature Granulocytes % (auto) 0.5 %; Lymphocytes # (auto) 0.97 K/uL (1.20-3.40); Lymphocytes % (auto) 14.9 %; Mean Corpuscular Hgb Conc 34.1 g/dL (32.0-36.0); Mean Corpuscular Volume 96.8 fL (80.0-100.0); Mean Platelet Volume 9.9 fL (9.4-12.4); Monocytes # (auto) 0.83 K/uL (0.11-0.59); Monocytes % (auto) 12.8 %; Neutrophils # (auto) 4.23 K/uL (1.40-6.50); Platelet Count 192 K/uL (130-400); RDW Coefficient of Variation 13.7 % (11.5-14.5); RDW Standard Deviation 48.3 fL (36.4-46.3); Red Blood Count 3.79 M/uL (4.70-6.10)
[2024-03-06 06:45] LABS: BUN Creatinine Ratio 15.3 (10-20); Calcium 9.1 mg/dl (8.6-10.3); Creatinine Clr Calc Pharmacy 35.9 ml/min; Potassium 4.3 mmol/L (3.5-5.1)
[2024-03-06 06:50] LABS: INR 2.8 (0.9-1.1)
[2024-03-06 07:33] VITALS: RESP 16
--- NOTE | 2024-03-06 08:36 | Urology Consultation ---
Date of Consultation March 06, 2024 Assessment & Plan (1) Radiation cystitis: (2) Bladder cancer: (3) Hematuria: Plan 78-year-old male with a history of distant bladder cancer and prostate cancer status post radiation with recurrent hematuria likely due to radiation cystitis. Admitted to hospital for hematuria. Patient's urine is clear yellow today. Recommend void trial and discharging patient home later today if medicine agrees. If patient can't urinate, replace catheter and we can set up void trial in clinic. Can continue Coumadin given that hematuria has resolved Urology will send a message to schedule follow-up History of Present Illness Attending Physician: Yolanda Velez MD History of Present Illness 78-year-old male with a history of bladder cancer status post distant BCG a history of prostate cancer status post radiation who I followed for recurrent gross hematuria. 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 Most recently had a cystoscopy in December 2023 which was negative. He has been taking gemtesa for bothersome symptoms which seem to help. He came to the hospital with gross hematuria. A catheter was placed. His catheter is draining clear yellow urine at this time. Labs are stable today. Creatinine is baseline. Allergies Allergy/AdvReac Type Severity Reaction Status Date / Time No Known Allergies Allergy Verified 02/04/24 13:47 Home Medications Medication Instructions Recorded Confirmed Type cyanocobalamin (vitamin B-12) 1,000 mcg PO QAM ##0 11/10/14 03/05/24 History 1,000 mcg tablet multivitamin 1 tab PO QAM ##0 11/10/14 03/05/24 History calcium carbonate (Calcium 600) 600 mg PO QAM 02/03/20 03/05/24 History glucosamine 750 [id number] 1 tab PO BID 02/03/20 03/05/24 History no1 644 mg-C 30 mg-galindo 1 mg tablet (Osteo Bi-Flex Triple Strength) diphenhydramine 25 1 tab PO HS 07/15/21 03/05/24 History mg-acetaminophen 500 mg tablet (Tylenol PM Extra Strength) losartan 100 mg tablet 100 mg PO QAM 07/15/21 03/05/24 History amlodipine 2.5 mg tablet 2.5 mg PO HS 08/01/21 03/05/24 History cholecalciferol (vitamin D3) 125 125 mcg PO QAM 05/24/22 03/05/24 History mcg (5,000 unit) tablet (Vitamin D3) magnesium oxide 500 mg PO QAM 05/24/22 03/05/24 History zinc gluconate 50 mg tablet 50 mg PO QAM 05/24/22 03/05/24 History spironolactone 25 mg tablet 12.5 mg PO 3XWK 05/31/22 03/05/24 History docusate sodium 100 mg capsule 100 mg PO UD 08/14/22 03/05/24 History (Stool Softener) vibegron 75 mg tablet (Gemtesa) 75 mg PO DAILY #90 tabs 01/10/24 03/05/24 Rx mirabegron 25 mg tablet,extended 25 mg PO DAILY #90 tabs 02/26/24 03/05/24 Rx release 24 hr (Myrbetriq) simvastatin 20 mg tablet 20 mg PO HS 03/05/24 03/05/24 History warfarin 5 mg tablet 5 mg PO QPM 03/05/24 03/05/24 History Patient History Medical History Hematochezia First degree AV block History of COVID-19 Malfunction of Cruz catheter Chronic anticoagulation Skin cancer Benign prostatic hyperplasia with urinary obstruction and other lower urinary tract symptoms 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 Sister Natural with unknown cause Other No family history of adverse response to anesthesia Social History Smoking Status: Never smoker Tobacco Type: Cigarettes Second Hand Exposure: No; Do You Dip or Chew Tobacco: No; Hx Alcohol Use: Yes Alcohol type: beer, wine and hard liquor Hx Substance Use: No Preferred Language: Lao Communication Ability: Effective Visual Impairment: No Limitations Hearing Ability: Normal Prestidigitator Required: No Beliefs That Will Affect Care: Buddhism Buddhism Beliefs: JAYJAY CATHOLCI marital status: Current Living Situation: Spouse current occupational status: 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 Feels Safe at Home: Yes Safety Concerns: Feels Safe At This Time Diet: other caffeine: Yes (2 cups/day) during the past year weight has: remained stable Assistive Devices: None Physical Exam Physical Exam: General: Alert and oriented, no acute distress HEENT: Normocephalic, mucous membranes moist Pulmonary: Nonlabored respirations Abdomen: Nondistended : Cruz catheter draining clear yellow urine Extremities: Moves all 4 spontaneously Neuro: No gross deficits Skin: Warm, dry, no rashes noted Results & Data Vital Signs (Past 12 Hours) Vital Signs Temp Pulse Pulse Resp BP BP BP 03/06/24 07:32 36.9 C 79 16 143/78 H 03/06/24 00:05 36.7 C 82 18 156/79 H 03/05/24 23:00 78 17 160/76 H 03/05/24 22:00 70 23 124/95 03/05/24 21:00 70 20 146/79 H Pulse Ox O2 Del Method 03/06/24 07:32 93 Room Air 03/06/24 00:05 96 Room Air 03/05/24 23:00 96 Room Air 03/05/24 22:00 96 Room Air 03/05/24 21:00 97 Room Air PG Care Time/CCT Total # of Minutes Spent Total Time Spent with Patient: Total time spent is greater than 50% in coordination of care (as documented) at patient's floor/unit and/or counseling patient: Coding Level of Care Code 66426 INT INP/OBS CARE 2/55MIN Diagnoses Radiation cystitis N30.40 Bladder cancer C67.9 Hematuria R31.0 Hematuria type: gross (3) Hematuria Hematuria type: gross Qualified Code(s): R31.0 - Gross hematuria
[2024-03-06] MEDS: LOSARTAN POTASSIUM 50 MG TAB PO SCH (08:58)
[2024-03-06] MEDS: VIBEGRON 75 MG TAB PO SCH (08:58)
--- NOTE | 2024-03-06 09:21 | Hospitalist Progress Note ---
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 He presents today due to gross hematuria. He stated he had an ultrasound of his kidneys this morning and has been soaking through multiple depends. He is being admitted for work up of hematuria with urology consult. 3 way Hernandez catheter inserted in ED. #hematuria/bladder CA/prostate CA/radiation cystitis/radiation proctitis gross hematuria x 1 day hx of bladder CA, prostate CA, radiation cystis and proctitis - completed radiation therapy 2-3 years ago hx GI bleed July 2023 2/[address] showed polycystic kidney disease, no identified source of hematuria Hgb stable, improved from baseline - 13.5 UA showed >20 RBC questionable if from rectum - heme occult ordered 3 way hernandez placed hold Warfarin urology consulted #h/o aortic valve replacement INR 3.4 holding warfarin with above repeat INR with AM labs #CKD renal function stable Cr 1.95 Bun 28 trend BMP with above Chronic stable diagnoses: HTN - continue amlodipine, losartan; spironolactone 3xWk - hold while inpatient urge incontinence - continue mirabegron HLD - continue statin VTE ppx: SCDs - no chemical ppx with hematuria Diet: heart healthy Dispo: med surg Admission and Anticipated Discharge Date Admission Date: March 05, 2024 Results & Data Results & Data Vital Signs (Past 12 Hours) Vital Signs Temp Pulse Pulse Resp BP BP BP 03/06/24 07:32 36.9 C 79 16 143/78 H 03/06/24 00:05 36.7 C 82 18 156/79 H 03/05/24 23:00 78 17 160/76 H 03/05/24 22:00 70 23 124/95 Pulse Ox O2 Del Method 03/06/24 07:32 93 Room Air 03/06/24 00:05 96 Room Air 03/05/24 23:00 96 Room Air 03/05/24 22:00 96 Room Air PG Care Time/CCT Total # of Minutes Spent Total Time Spent with Patient: Total time spent is greater than 50% in coordination of care (as documented) at patient's floor/unit and/or counseling patient: Coding Diagnoses Hematuria R31.0 Hematuria type: gross Prostate cancer C61 Bladder cancer C67.9 Radiation proctitis K62.7 Radiation cystitis N30.40 H/O aortic valve replacement Z95.2 CKD (chronic kidney disease) stage 3, GFR 30-59 ml/min N18.30 (1) Hematuria Hematuria type: gross Qualified Code(s): R31.0 - Gross hematuria
--- NOTE | 2024-03-06 15:18 | Discharge Summary ---
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 He presents today due to gross hematuria. He stated he had an ultrasound of his kidneys this morning and has been soaking through multiple depends. He is being admitted for work up of hematuria with urology consult. 3 way Cruz catheter inserted in ED. #Hematuria/bladder CA/prostate CA/radiation cystitis/radiation proctitis - gross hematuria x 1 day - hx of bladder CA, prostate CA, radiation cystis and proctitis - completed radiation therapy 2-3 years ago - hx GI bleed July 2023 2/2 radiation proctitis - AP CT showed polycystic kidney disease, no identified source of hematuria - Hgb stable, improved from baseline - 13.5 - UA showed >20 RBC - Urology recs appreciated, urine is clear. Recs voiding trial and d/c home with outpatient urology follow up #h/o aortic valve replacement - INR goal: 2.5 - 3.5 - INR 3.4 > 2.8 - resume Warfarin per urology #CKD - renal function stable - Cr 1.95 > 1.76 #HTN - continue amlodipine, losartan; spironolactone 3xWk - hold while inpatient #urge incontinence - continue mirabegron #HLD - continue statin Diet: heart healthy Pt's at bedside. 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 He presents today due to gross hematuria. He stated he had an ultrasound of his kidneys this morning and has been soaking through multiple depends. He is being admitted for work up of hematuria with urology consult. 3 way Cruz catheter inserted in ED. Patient seen at bedside. He stated that he had an ultrasound of his kidneys this morning. This afternoon he noted hematuria in his blood. He stated he has mild incontinence of bladder, no acute changes. He denies bleeding per rectum, no blood in bowel movement this morning. Patient denies fever, chills, dyspnea, dyspnea on exertion, chest pain, abdominal pain, nausea, vomiting, diarrhea, constipation, dysuria. He denies nicotine and alcohol use. He denies past history of DM or previous VTE. He took his home medications this morning but is due for evening doses. He wishes to be full code at this time. Discharge Exam Gen: NAD, resting in bed comfortable HEENT: NC/AT, MMM Lungs: CTAB CVS: s1s2nl, RRR Abd: soft, NT/ND, nl bowel sounds Ext: no edema Discharge Plan Discharge Items Patient Disposition: Home - Self-Care Reason For Visit: HEMATURIA Discharge Diagnosis: Hematuria Activity: Resume your previous activity Non-emergency contact: Urologist Call non-emergency contact if: you have any medication questions and your symptoms worsen Follow-up/Referrals: Antonio Phoenix MD [Physician] - Deon Mendez MD [Primary Care Provider] - Diet: Heart Healthy Addtl Attending Provider Instructions: Follow up with Urology as outpatient Pending Studies at Discharge: No Stand-Alone Forms: My [facility] Live Life 360, Smoking Cessation Medications and DC Order Prescriptions: Continued calcium carbonate [Calcium 600] 600 mg calcium (1,500 mg) tablet 600 mg PO QAM Osteo Bi-Flex Triple Strength 750 mg-644 mg- 30 mg-1 mg tablet 1 tab PO BID Rx Instructions: give with meal/snack multivitamin Tablet 1 tab PO QAM Qty: 0 cyanocobalamin (vitamin B-12) 1,000 mcg Tablet 1,000 mcg PO QAM Qty: 0 mirabegron [Myrbetriq] 25 mg tablet extended release 24 hr 25 mg PO DAILY Qty: 90 3RF Gemtesa 75 mg tablet 75 mg PO DAILY Qty: 90 3RF Rx Instructions: CANNOT VERIFY THROUGH PHARMACY magnesium oxide 500 mg Tablet 500 mg PO QAM zinc gluconate 50 mg Tablet 50 mg PO QAM cholecalciferol (vitamin D3) [Vitamin D3] 125 mcg (5,000 unit) Tablet 125 mcg PO QAM spironolactone 25 mg tablet 12.5 mg PO 3XWK Patient Comments: takes in the am Rx Instructions: Takes on Sat amlodipine 2.5 mg Tablet 2.5 mg PO HS diphenhydramine-acetaminophen [Tylenol PM Extra Strength] 25-500 mg Tablet 1 tab PO HS losartan 100 mg Tablet 100 mg PO QAM docusate sodium [Stool Softener] 100 mg capsule 100 mg PO UD Rx Instructions: Daily HS and QOD in the morning. simvastatin 20 mg tablet 20 mg PO HS warfarin 5 mg tablet 5 mg PO QPM Rx Instructions: OR DIRECTED BY ANTICOAGULATION CLINIC Discharge Orders: Discharge Order (Routine); Ordered 03/06/24 Ordered By: Yolanda Velez Admission Data Admit Date/Time: 03/05/24 22:51 Attending Provider: Yolanda Velez Admit Provider: Alexandro Esteban Primary Care Provider: Deon Mendez Other Providers: Alexandro Esteban; Kenn Gurrola Hospital Stay Data Consultations 03/05/24 22:40 ED Decision to Admit Stat 03/06/24 00:21 Consult Urology Routine Diagnostic Imagining Performed 03/05/24 19:37 CT Abd and Pelvis [CT abd pelvis IV con only] Stat Pending Results Patient Have Any Pending Studies at Discharge: No Discharge Instructions Given to Patient (Per Discharging Provider) Follow up with Urology as outpatient Total Time Total Time Spent Total Time Spent (In Minutes): 50 Coding Level of Care Code 43288 INP/OBS DISCH >30 MIN Diagnoses Hematuria R31.0 Hematuria type: gross Prostate cancer C61 Bladder cancer C67.9 Radiation proctitis K62.7 Radiation cystitis N30.40 H/O aortic valve replacement Z95.2 CKD (chronic kidney disease) stage 3, GFR 30-59 ml/min N18.30
[2024-03-06 15:38] VITALS: BP 116/71; PULSE 66; TEMP 98.1; O2SAT 95
[2024-03-06] MEDS ORDERED: amLODIPine BESYLATE 5 MG TAB PO SCH (21:00)
--- OUTSIDE RECORDS SUMMARY | 2024-03-06 22:57 | External Medical Summary | Summary of Care ---
Author Name Unknown Organization [facility] Address [address] [facility] [place] [address] Phone [phone] Care Team Providers Care Semi Conductor Assembler Name Role Phone Deon Mendez MD Primary Care Provider [phone] Reason for Visit * Reason Comments Dosage Adjustment Via Phone (anticoag Cl inic) Encounter Details Date Type Department Care Team (Late st Contact Info) Description 03/06/2024 6:15 AM EST Anticoagulation [facility], Jennifer Esteban [address] [place] [address] [place] [address] [facility], [address] [place] [address] 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* Allergies No known active allergiesdocumented as of this encounter (statuses as of 03/06/2024) Medications MULTIVITAMINS PO CAPS Take by mouth [...] MG Oral Tablet (Coumadin)Indicat ions: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,USP current use of anticoagulant therapy TAKE 7.5MG [...] as of this encounter (statuses as of 03/06/2024) Active Problems Problem Noted Date Diagnosed Date [...] 02/2020, BCC R upper lateral arm, R adventist 02/2013, possible BCC chest - unknown year (Lindy) Dyslipidemia, goal LDL below 70 05/31/2010 BMI 35-39 ISOLATED (SEE ACTUAL BMI) 08/01/2009 Overview (08/01/2009): Per Obesity Protocol, #19 USP current use of anticoagulant therapy 1 04/04/2002 Overview (11/19/2016): ICD-10 update of inactive term 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 08/27/2001 Overview (05/29/2002): [facility] Anticoagulation management encounter 08/27/2001 documented as of this encounter (statuses as of 03/06/2024) Immunizations Name Administration Dates Next Due COVID-19 [...] as of this encounter Progress Notes * Temi Chand, [facility] - 03/06/2024 11:12 AM EST Noted. [facility] was unaware of hosp admission. [facility] will follow up at discharge. Temi Chand Rph, Pharm.D. Clinical Pharmacist [facility] ([facility]) [phone] 03/06/2024,11:13 AM * Brea Newberry CPhT - 03/06/2024 9:01 AM EST Contacts Contact Date/Time Type Contact Phone/Fax 03/06/2024 08:57 AM EST Phone (Outgoing) Nakul Bradford (Self) [phone] (M) spoke to Kaitlyn Subjective Patient Findings Positives: Signs/symptoms of bleeding (Blood in urine yesterday per ), Hospital admission (Patient currently admitted to [facility]. Went to ED for blood in urine yesterday and patient was admitted perwife) Negatives: Change in health, Change in activity, Upcoming invasive procedure, Missed doses, Extra doses, Change in medications, Change in diet/appetite, Bruising Advised patient to contact Anticoagulation Clinic if any unusual bruising or bleeding, recent illness, changes in medication, or questions/concerns. PT/INR results, Coumadin dose instructions, and next PT/INR date communicated as noted by Pharmacist: No- aware [facility] will manage warfarin while patient is admitted and we will follow up at discharge. BREA NEWBERRY CPhT 03/06/2024, 9:01 AM * Temi Chand RPh - 03/06/2024 8:48 AM EST Coumadin Clinic (region specific) Objective Current Warfarin Dose As of 03/06/2024 Warfarin maintenance plan: 5 mg (5 mg x 1) every day INR Result As of 03/06/2024 INR goal: 2.5-3.5 INR used for dosin.2 (03/05/2024) Assessment & Plan Warfarin Plan As of 03/06/2024 Full warfarin instructions: 5 mg every day No change documented: Temi Chand tiara Next INR check: 03/26/2024 Repeat PT/INR in 4 week(s) Weekly dose: not changed Additional Dosing Information: Description Siria Encarnacion Tooth Extraction 05/21/24- [facility] want INR b/w 2.0-2.5 drawn on 05/20 and Tech to contact patient with dose instructions as noted. Temi Chand RPh 03/06/2024, 8:48 AM documented in this encounter Plan of Treatment Upcoming Encounters Date Type Department Care Team (Late st Contact Info) Description 06/23/2024 11:00 AM EDT Office Visit Cardiology, [facility] [address] [place] [address] Lala Gillis PA-C [address] [place] [address] 09/22/2024 2:20 PM EDT Office Visit Nephrology, [place] [address] [facility] [place] [address] Flynn Putnam MD [address] [facility] [place] [address] Scheduled Procedures Name Priority Associated Diagnoses Date/Ti [...] 08/29/2022, Additional history exists Colonoscopy 05/25/2025 05/25/2020, 04/0 08/2020, 09/28/2014, Additional history exists RETIRED - [...] this encounter Medical Devices Implanted Type Area System Integration Engineer Device Identifier Shelf Expiration Date Model / Serial / Lot Lens Intraoc 20.5 - [id number] - [id number] Implanted:Qty: 1 on 03/19/2019 by Jean Villanueva MD at OR [facility] Left: Eye [employer] 10/19/2023 [id number] / [id number] / Lens Intraoc 21.0 - [id number] - [id number] Implanted:Qty: 1 on 03/31/2019 by Jean Villanueva MD at OR [facility] Right: Eye [employer] 09/18/2023 [id number] / [id number] / [id number] Clip Quick 2.8mm 230cm - [id number] Implanted:Qty: 1 on 05/25/2020 by Keith Olivia MD at ENDOSCOPY [facility] [employer] 08/17/2022 [id number] / documented as of this encounter Visit Diagnoses Diagnosis 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- Primary Heart valve replaced by other means documented in this encounter Care Teams Semi Conductor Assembler Relationship Specialty Start Date End Date Deon Mendez MD [address] [place] [address] PCP - General Sports Medicine 12/11/23 documented as of this encounter
== END 2024-03-06 16:41 | disposition home or self-care (01) ==
LOC: SUATTDRO → 3N 17:21 → ED 17:21 → SUATTDRO 22:51 → 3N 03-06 00:03

== ENCOUNTER 2024-10-31 10:08 | Inpatient (IN) ==
[2024-10-31 11:21] LABS: Hematocrit (blood only) 30.3 % (42.0-52.0); Hemoglobin 9.9 g/dl (14.0-18.0); Immature Granulocytes # (auto) 0.03 K/uL (0.01-0.20); Immature Granulocytes % (auto) 0.7 %; Mean Corpuscular Hemoglobin 32.8 pg (25.0-34.0); Mean Corpuscular Volume 100.3 fL (80.0-100.0); Platelet Count 173 K/uL (130-400); RDW Standard Deviation 59.9 fL (36.4-46.3); Red Blood Count 3.02 M/uL (4.70-6.10); White Blood Count 4.18 K/ul (4.8-10.8)
[2024-10-31 11:40] LABS: Alanine Aminotransferase 10.0 U/L (7-52); Alkaline Phosphatase 40.0 U/L (34-104); Anion Gap 4.0 (3-11); Bilirubin,Total 0.6 mg/dl (0.2-1.0); Blood Urea Nitrogen 29.0 mg/dl (6-23); Calcium 8.9 mg/dl (8.6-10.3); Carbon Dioxide 27.0 mmol/L (21-32); Chloride 109.0 mmol/L (98-107); Creatinine Clr Calc Pharmacy 32.4 ml/min; Glucose 113.0 mg/dl (70-99(Fasting)); Lipase 38.0 U/L (11-82); Potassium 4.5 mmol/L (3.5-5.1); Sodium 140.0 mmol/L (136-145); Total Protein 6.2 gm/dl (6.0-8.3)
[2024-10-31 11:49] LABS: INR 3.9 (0.9-1.1); Partial Thromboplastin Time 40 Seconds (21-31); Prothrombin Time 37.6 Seconds (9.0-12.0)
--- NOTE | 2024-10-31 12:59 | Emergency Department Note ---
History of Present Illness General Chief complaint: Rectal Bleed Stated complaint: ANAL BLEEDING Time Seen by Provider: 10/31/24 10:22 History of Present Illness Provider Complaint: + gross hematochezia Onset (ago): 9 day(s) Pain Consistency: + intermittent Maximum Pain Intensity: 0 Context: + anticoagulant use (On Coumadin); no rectal trauma Associated symptoms: + abdominal pain; no nausea, no vomiting, no epistaxis, no fever, no chills or no other bleeding Home Medications Medication Instructions Recorded Confirmed Type cyanocobalamin (vitamin B-12) 1,000 mcg PO QAM ##0 11/10/14 10/31/24 History 1,000 mcg tablet multivitamin 1 tab PO QAM ##0 11/10/14 10/31/24 History calcium carbonate (Calcium 600) 600 mg PO QAM 02/03/20 10/31/24 History glucosamine 750 vg-[id number] 1 tab PO BID 02/03/20 10/31/24 History no1 644 mg-C 30 mg-galindo 1 mg tablet (Osteo Bi-Flex Triple Strength) diphenhydramine 25 1 tab PO HS 07/15/21 10/31/24 History mg-acetaminophen 500 mg tablet (Tylenol PM Extra Strength) losartan 100 mg tablet 100 mg PO QAM 07/15/21 10/31/24 History amlodipine 2.5 mg tablet 2.5 mg PO HS 08/01/21 10/31/24 History cholecalciferol (vitamin D3) 125 125 mcg PO QAM 05/24/22 10/31/24 History mcg (5,000 unit) tablet (Vitamin D3) magnesium oxide 500 mg PO QAM 05/24/22 10/31/24 History zinc gluconate 50 mg tablet 50 mg PO QAM 05/24/22 10/31/24 History spironolactone 25 mg tablet 12.5 mg PO 3XWK 05/31/22 10/31/24 History docusate sodium 100 mg capsule 100 mg PO BID 08/14/22 10/31/24 History (Stool Softener) simvastatin 20 mg tablet 20 mg PO HS 03/05/24 10/31/24 History warfarin 5 mg tablet 5 mg PO QPM 03/05/24 10/31/24 History olanzapine 2.5 mg tablet 2.5 mg PO DIRECTED PRN PER 08/08/24 10/31/24 History ONCOLOGY INSTRUCTIONS polyethylene glycol 3350 17 17 g PO DAILY PRN Constipation 08/08/24 10/31/24 History gram/dose oral powder (Miralax) Allergies Allergy/AdvReac Type Severity Reaction Status Date / Time No Known Allergies Allergy Verified 09/14/24 14:48 Past Med/Surg History Problem List (Updated 10/11/24 @ 00:08 by Virgilio Ngo) 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 Sister Natural with unknown cause Other No family history of adverse response to anesthesia Social History Smoking Status: Never smoker Tobacco Type: Cigarettes Second Hand Exposure: No; Do You Dip or Chew Tobacco: No; Hx Alcohol Use: Yes Alcohol type: beer, wine and hard liquor Hx Substance Use: No Preferred Language: Latvian Communication Ability: Effective Visual Impairment: No Limitations Hearing Ability: Normal Metal Hanging Helper Required: No Beliefs That Will Affect Care: Amish Amish Beliefs: JAYJAY CATHOLCI marital status: Current Living Situation: Spouse current occupational status: retired current occupation: [employer] Feels Safe at Home: Yes Diet: other caffeine: Yes (2 cups/day) during the past year weight has: remained stable Assistive Devices: None Physical Exam 2 Vital Signs: Vital Signs - 24 hr 10/31/24 10:11 10/31/24 11:14 10/31/24 11:42 Temperature 36.1 C L Temperature Source Temporal Artery Sc an Pulse Rate 76 73 Pulse Rate [Apical ] Pulse Rate from Sp O2 Sensor 71 Respiratory Rate 18 15 Respiratory Effort / Characteristics Non-Labored Sponta neous Respiratory Depth Normal Respiratory Patter n Regular Blood Pressure 118/65 Blood Pressure [Le ft Arm] Blood Pressure Amanda n 82 Blood Pressure Amanda n [Left Arm] Pulse Oximetry 97 97 97 Oxygen Delivery Me thod Room Air Room Air Sepsis Recent Feve r Within 48 Hours No Sepsis New/Unexpla ined Change in Men john Status N/A Sepsis Action Take n by Nursing No Action Required 10/31/24 11:54 10/31/24 12:00 10/31/24 12:00 Temperature Temperature Source Pulse Rate 60 Pulse Rate [Apical ] Pulse Rate from Sp O2 Sensor 70 Respiratory Rate 20 Respiratory Effort / Characteristics Respiratory Depth Respiratory Patter n Blood Pressure 124/64 124/64 Blood Pressure [Le ft Arm] Blood Pressure Amanda n 94 94 Blood Pressure Amanda n [Left Arm] Pulse Oximetry 97 Oxygen Delivery Me thod Sepsis Recent Feve r Within 48 Hours Sepsis New/Unexpla ined Change in Men john Status Sepsis Action Take n by Nursing 10/31/24 12:06 10/31/24 12:07 10/31/24 12:30 Temperature Temperature Source Pulse Rate 71 74 Pulse Rate [Apical ] Pulse Rate from Sp O2 Sensor 71 Respiratory Rate 19 Respiratory Effort / Characteristics Respiratory Depth Respiratory Patter n Blood Pressure 114/60 Blood Pressure [Le ft Arm] Blood Pressure Amanda n 94 Blood Pressure Amanda n [Left Arm] Pulse Oximetry 99 Oxygen Delivery Me thod Sepsis Recent Feve r Within 48 Hours Sepsis New/Unexpla ined Change in Men john Status Sepsis Action Take n by Nursing 10/31/24 12:30 10/31/24 13:00 10/31/24 13:00 Temperature Temperature Source Pulse Rate 74 Pulse Rate [Apical ] Pulse Rate from Sp O2 Sensor 64 Respiratory Rate 21 Respiratory Effort / Characteristics Respiratory Depth Respiratory Patter n Blood Pressure 121/65 121/65 Blood Pressure [Le ft Arm] Blood Pressure Amanda n 96 96 Blood Pressure Amanda n [Left Arm] Pulse Oximetry 97 Oxygen Delivery Me thod Sepsis Recent Feve r Within 48 Hours Sepsis New/Unexpla ined Change in Men john Status Sepsis Action Take n by Nursing 10/31/24 13:00 10/31/24 13:03 10/31/24 13:06 Temperature Temperature Source Pulse Rate 69 70 Pulse Rate [Apical ] 78 Pulse Rate from Sp O2 Sensor 73 71 Respiratory Rate 28 H 18 11 L Respiratory Effort / Characteristics Respiratory Depth Respiratory Patter n Blood Pressure Blood Pressure [Le ft Arm] 121/65 Blood Pressure Amanda n Blood Pressure Amanda n [Left Arm] 83 Pulse Oximetry 98 97 99 Oxygen Delivery Me thod Sepsis Recent Feve r Within 48 Hours Sepsis New/Unexpla ined Change in Men john Status Sepsis Action Take n by Nursing 10/31/24 13:20 10/31/24 13:20 10/31/24 13:20 Temperature Temperature Source Pulse Rate Pulse Rate [Apical ] Pulse Rate from Sp O2 Sensor Respiratory Rate Respiratory Effort / Characteristics Respiratory Depth Respiratory Patter n Blood Pressure 133/55 L 133/55 L 133/55 L Blood Pressure [Le ft Arm] Blood Pressure Amanda n 92 92 92 Blood Pressure Amanda n [Left Arm] Pulse Oximetry Oxygen Delivery Me thod Sepsis Recent Feve r Within 48 Hours Sepsis New/Unexpla ined Change in Men john Status Sepsis Action Take n by Nursing 10/31/24 13:30 10/31/24 13:30 10/31/24 13:30 Temperature Temperature Source Pulse Rate Pulse Rate [Apical ] Pulse Rate from Sp O2 Sensor Respiratory Rate Respiratory Effort / Characteristics Respiratory Depth Respiratory Patter n Blood Pressure 127/68 127/68 127/68 Blood Pressure [Le ft Arm] Blood Pressure Amanda n 97 97 97 Blood Pressure Amanda n [Left Arm] Pulse Oximetry Oxygen Delivery Me thod Sepsis Recent Feve r Within 48 Hours Sepsis New/Unexpla ined Change in Men john Status Sepsis Action Take n by Nursing 10/31/24 13:30 10/31/24 13:30 10/31/24 14:18 Temperature Temperature Source Pulse Rate 60 57 L Pulse Rate [Apical ] Pulse Rate from Sp O2 Sensor 61 56 L Respiratory Rate 22 22 Respiratory Effort / Characteristics Respiratory Depth Respiratory Patter n Blood Pressure 127/68 Blood Pressure [Le ft Arm] Blood Pressure Amanda n 97 Blood Pressure Amanda n [Left Arm] Pulse Oximetry 97 96 Oxygen Delivery Me thod Sepsis Recent Feve r Within 48 Hours Sepsis New/Unexpla ined Change in Men john Status Sepsis Action Take n by Nursing 10/31/24 15:00 10/31/24 15:06 10/31/24 15:17 Temperature Temperature Source Pulse Rate 71 78 Pulse Rate [Apical ] Pulse Rate from Sp O2 Sensor 65 75 Respiratory Rate 14 22 Respiratory Effort / Characteristics Respiratory Depth Respiratory Patter n Blood Pressure 135/77 Blood Pressure [Le ft Arm] Blood Pressure Amanda n 108 Blood Pressure Amanda n [Left Arm] Pulse Oximetry 99 87 L Oxygen Delivery Me thod Sepsis Recent Feve r Within 48 Hours Sepsis New/Unexpla ined Change in Men john Status Sepsis Action Take n by Nursing 10/31/24 15:17 10/31/24 15:17 10/31/24 15:24 Temperature Temperature Source Pulse Rate Pulse Rate [Apical ] 72 Pulse Rate from Sp O2 Sensor Respiratory Rate 20 Respiratory Effort / Characteristics Non-Labored Sponta neous Respiratory Depth Normal Respiratory Patter n Blood Pressure 135/77 135/77 Blood Pressure [Le ft Arm] 135/77 Blood Pressure Amanda n 108 108 Blood Pressure Amanda n [Left Arm] 96 Pulse Oximetry 97 Oxygen Delivery Me thod Room Air Sepsis Recent Feve r Within 48 Hours Sepsis New/Unexpla ined Change in Men john Status Sepsis Action Take n by Nursing 10/31/24 15:30 10/31/24 15:30 10/31/24 15:30 Temperature Temperature Source Pulse Rate 68 Pulse Rate [Apical ] Pulse Rate from Sp O2 Sensor Respiratory Rate 20 Respiratory Effort / Characteristics Respiratory Depth Respiratory Patter n Blood Pressure 140/75 140/75 Blood Pressure [Le ft Arm] Blood Pressure Amanda n 93 93 Blood Pressure Amanda n [Left Arm] Pulse Oximetry Oxygen Delivery Me thod Sepsis Recent Feve r Within 48 Hours Sepsis New/Unexpla ined Change in Men john Status Sepsis Action Take n by Nursing 10/31/24 15:57 10/31/24 16:00 10/31/24 16:00 Temperature Temperature Source Pulse Rate 56 L Pulse Rate [Apical ] Pulse Rate from Sp O2 Sensor Respiratory Rate 13 Respiratory Effort / Characteristics Respiratory Depth Respiratory Patter n Blood Pressure 127/71 127/71 Blood Pressure [Le ft Arm] Blood Pressure Amanda n 84 84 Blood Pressure Amanda n [Left Arm] Pulse Oximetry Oxygen Delivery Me thod Sepsis Recent Feve r Within 48 Hours Sepsis New/Unexpla ined Change in Men john Status Sepsis Action Take n by Nursing 10/31/24 16:00 10/31/24 16:00 10/31/24 16:03 Temperature Temperature Source Pulse Rate 54 L Pulse Rate [Apical ] Pulse Rate from Sp O2 Sensor Respiratory Rate 14 Respiratory Effort / Characteristics Respiratory Depth Respiratory Patter n Blood Pressure 127/71 127/71 Blood Pressure [Le ft Arm] Blood Pressure Amanda n 84 84 Blood Pressure Amanda n [Left Arm] Pulse Oximetry 97 Oxygen Delivery Me thod Sepsis Recent Feve r Within 48 Hours Sepsis New/Unexpla ined Change in Men john Status Sepsis Action Take n by Nursing 10/31/24 16:10 10/31/24 16:36 Temperature Temperature Source Pulse Rate 62 56 L Pulse Rate [Apical ] Pulse Rate from Sp O2 Sensor Respiratory Rate 19 Respiratory Effort / Characteristics Respiratory Depth Respiratory Patter n Blood Pressure Blood Pressure [Le ft Arm] Blood Pressure Amanda n Blood Pressure Amanda n [Left Arm] Pulse Oximetry Oxygen Delivery Me thod Sepsis Recent Feve r Within 48 Hours Sepsis New/Unexpla ined Change in Men john Status Sepsis Action Take n by Nursing Physical Exam: Physical Exam GENERAL: oriented to person, place, and time. appears well-developed and well- nourished. She does not appear distressed. HENT: Exam performed. -Head: Normocephalic and atraumatic. -Right Ear: External ear normal. No mastoid erythema -Left Ear: External ear normal. No mastoid erythema -Mouth/Throat: The oropharynx is clear and moist. No trismus in the jaw. No dental abscesses or uvula swelling. No oropharyngeal exudate or tonsillar abscesses. EYES: Conjunctivae and EOM are normal.Right eye exhibits no discharge. Left eye exhibits no discharge. No scleral icterus. NECK: Normal range of motion. Neck supple. No JVD present. No tracheal deviation and normal range of motion present. CV: Normal rate, regular rhythm, midsystolic click auscultated and intact distal pulses. There is no peripheral edema. Palpable radial pulses bue. PULM/CHEST: Effort normal and breath sounds normal. No respiratory distress. No stridor. no wheezes.no rales. -Chest Wall: no tenderness to palpation ABD: The abdomen is soft. Bowel sounds are normal. no distension. No mass is present. There is no tenderness. There is no rebound, no guarding, no Kidd's sign and no tenderness at McBurney's point. Rovsig negative Rectal exam: Performed with male nurse body finisher Santhosh at bedside. Melanotic stool. Hemoccult positive. MUSC/SKEL: Normal range of motion. There is no peripheral edema, tenderness or deformity. NEURO: Motor and sensation grossly intact. SKIN: Skin is warm and dry. not diaphoretic. PSYCH: normal mood and affect. Behavior is normal. Judgment and thought content normal. Course Course 1022: The patient was evaluated in room B2. A complete history and physical exam was performed Cardiac monitoring: An order was placed for continuous cardiac monitoring. The monitor shows a rate of 70 with sinus rhythm interpreted by co 1625: Vital signs stable. Hemoglobin 9.9, down from baseline of around 11. INR 3.9. Creatinine at baseline. Imaging is unremarkable. Patient placed on Protonix bolus and drip. Patient be admitted to the [facility] team. Administered Medications Pantoprazole Sodium 40 mg/ (Dextrose) 100 mls @ 20 mls/hr IV Q5H COUNT INCLUDES THE [facility] Stop: 11/30/24 13:59 Last Admin: 10/31/24 14:11 Dose: 8 mg/hr, 20 mls/hr Documented By: GERBER Discontinued Medications Pantoprazole Sodium 80 mg/ (Dextrose) 120 mls @ 480 mls/hr IV NOW ONE Stop: 10/31/24 13:59 Last Infusion: 10/31/24 14:45 Dose: Infused Documented By: Admin: 10/31/24 14:11 Dose: 480 mls/hr Documented By: GERBER Pantoprazole Sodium (Pantoprazole Bolus/Drip) 1 each IV NOW STA Stop: 10/31/24 13:46 Last Admin: 10/31/24 14:11 Dose: Not Given Documented By: GERBER Medical Decision Making Laboratory Data Attestation: I reviewed the patient's lab results. 10/31/24 11:10 10/31/24 11:10 Lab Results 10/31/24 Range/Units 11:10 WBC 4.18 L (4.8-10.8) K/ul RBC 3.02 L (4.70-6.10) M/uL Hgb 9.9 L (14.0-18.0) g/dl Hct 30.3 L (42.0-52.0) % MCV 100.3 H (80.0-100.0) fL MCH 32.8 (25.0-34.0) pg MCHC 32.7 (32.0-36.0) g/dL RDW Std Deviation 59.9 H (36.4-46.3) fL RDW Coeff of Skye 16.1 H (11.5-14.5) % Plt Count 173 (130-400) K/uL MPV 9.0 L (9.4-12.4) fL Immature Gran % (Auto) 0.7 % Neut % (Auto) 76.8 % Lymph % (Auto) 8.4 % Anson % (Auto) 11.7 % Eos % (Auto) 1.7 % Baso % (Auto) 0.7 % Neut # (Auto) 3.21 (1.40-6.50) K/uL Lymph # (Auto) 0.35 L (1.20-3.40) K/uL Anson # (Auto) 0.49 (0.11-0.59) K/uL Eos # (Auto) 0.07 (0.00-0.50) K/uL Baso # (Auto) 0.03 (0.00-0.20) K/uL Immature Gran # (Auto) 0.03 (0.01-0.20) K/uL PT 37.6 H (9.0-12.0) Seconds INR 3.9 H (0.9-1.1) APTT 40 H (21-31) Seconds PTT Ratio 1.5 Sodium 140 (136-145) mmol/L Potassium 4.5 (3.5-5.1) mmol/L Chloride 109 H (98-107) mmol/L Carbon Dioxide 27 (21-32) mmol/L Anion Gap 4 (3-11) BUN 29 H (6-23) mg/dl Creatinine 1.80 H (0.6-1.4) mg/dl Est Cr Clr Drug Dosing 32.4 ml/min eGFR 37.35 BUN/Creatinine Ratio 16.1 (10-20) Glucose 113 H (70-99(Fasting)) mg/dl Calcium 8.9 (8.6-10.3) mg/dl Total Bilirubin 0.6 (0.2-1.0) mg/dl Direct Bilirubin 0.1 (0-0.2) mg/dl AST 19 (13-39) U/L ALT 10 (7-52) U/L Alkaline Phosphatase 40 (34-104) U/L Total Protein 6.2 (6.0-8.3) gm/dl Albumin 3.8 (3.4-5.0) gm/dl Lipase 38 (11-82) U/L Imaging Data Radiologist's Impression: Abdomen/Pelvis CT 10/31/24 11:49 EXAMINATION: CT of the abdomen and pelvis performed without contrast. TECHNIQUE: Helical CT images from the lung bases through the symphysis pubis were obtained without contrast. Coronal and sagittal reformatted images were generated at a workstation for further assessment. Dose reduction techniques were achieved by using automatic exposure control and/or adjustment of mA and/or kV according to patient size and/or use of iterative reconstruction technique. COMPARISON: September 26, 2024 and March 05, 2024. HISTORY: Abdominal pain with rectal bleeding. Patient on blood thinners. FINDINGS: Audio Recording Engineer film demonstrates likely CABG changes. Left inguinal surgical clips. Lung windows demonstrate portions of the exam to be limited secondary to respiratory motion. Linear band densities bilateral pulmonary bases likely representing subsegmental atelectasis and/or scarring. Difficulty appreciating significant interval change. Calcified granuloma right posterior costophrenic sulcus. 5 mm noncalcified nodule anterior lateral left lower lobe. This is incompletely evaluated on this exam. Similar foci on prior studies. Soft tissue windows demonstrate partially included likely aortic valve calcifications. Dependent densities within the gallbladder consistent with stones. No wall thickening or pericholecystic fluid. Hypodensities of the right liver dome unchanged when compared to prior studies. These are likely benign. Several exophytic foci of bilateral kidneys some of which demonstrate increased attenuation and likely elements of calcification. Further characterization limited on this noncontrast exam. Although difficult to reconcile these do not appear to be significantly changed when compared to prior study. Uncomplicated small anterior upper midline fat-containing hernia. Elements of increased attenuation large bowel contents. Suspect residual radiopaque medicinal debris. Prominent wall thickness of the rectum is noted. No discrete mass, obstruction or fluid collection. Mild perirectal fat stranding. Uncomplicated large bowel diverticulosis. Appendix is within normal limits. Nonspecific prominent retroperitoneal lymph nodes. Remaining solid and hollow organs of the abdomen and pelvis are within normal limits. No free air or free fluid. Multilevel degenerative changes of the lumbar spine with at least moderate spinal canal and moderate to marked foraminal stenoses. Bone windows demonstrate degenerative changes of the lumbar spine. No appreciated acute osseous process. IMPRESSION: 1. Incompletely evaluated 5 mm noncalcified left lower lobe nodule. Although this is favored to be benign this is indeterminant. Dedicated low-dose CT chest evaluation would be helpful. 2. Likely benign liver and renal cysts. These are limited on this noncontrast exam. 3. Prominent wall thickness of the rectum with mild perirectal fat stranding. No obstruction, mass or fluid collection. Inflammatory or infectious process not excluded. CT angiography or dedicated contrast-enhanced exam may be of benefit. 4. Uncomplicated cholelithiasis. Otherwise no findings to suggest source for patient's symptoms. Please see above for details. Electronically signed by Kenroy Oliveros 10-31-2024 4:21 PM [facility] Narrative 1022: The patient was evaluated in room B2. A complete history and physical exam was performed Cardiac monitoring: An order was placed for continuous cardiac monitoring. The monitor shows a rate of 70 with sinus rhythm interpreted by me 1625: Vital signs stable. Hemoglobin 9.9, down from baseline of around 11. INR 3.9. Creatinine at baseline. Imaging is unremarkable. Patient placed on Protonix bolus and drip. Patient be admitted to the [facility] hospitalist team. Impression & Plan GIB (gastrointestinal bleeding) Discharge Plan Visit Data Chief Complaint: Rectal Bleed Stated Complaint: ANAL BLEEDING ED Provider: Rufus Remy Discharge Problem: GIB (gastrointestinal bleeding) Patient Disposition: Admitted As Inpatient Condition: Fair Forms Stand Alone Forms: My [facility] Prescriptions Prescriptions: No Action calcium carbonate [Calcium 600] 600 mg calcium (1,500 mg) tablet 600 mg PO QAM Patient Comments: 10/31- otc unable to verify Osteo Bi-Flex Triple Strength 750 mg-644 mg- 30 mg-1 mg tablet 1 tab PO BID Patient Comments: 10/31- otc unable to verify Rx Instructions: give with meal/snack multivitamin Tablet 1 tab PO QAM Qty: 0 Patient Comments: 10/31- otc unable to verify cyanocobalamin (vitamin B-12) 1,000 mcg Tablet 1,000 mcg PO QAM Qty: 0 Patient Comments: 10/31- otc unable to verify magnesium oxide 500 mg Tablet 500 mg PO QAM Patient Comments: 10/31- otc unable to verify zinc gluconate 50 mg Tablet 50 mg PO QAM Patient Comments: 10/31- otc unable to verify cholecalciferol (vitamin D3) [Vitamin D3] 125 mcg (5,000 unit) Tablet 125 mcg PO QAM Patient Comments: 10/31- otc unable to verify spironolactone 25 mg tablet 12.5 mg PO 3XWK Patient Comments: takes in the am Rx Instructions: Takes on Sat amlodipine 2.5 mg Tablet 2.5 mg PO HS diphenhydramine-acetaminophen [Tylenol PM Extra Strength] 25-500 mg Tablet 1 tab PO HS Patient Comments: 10/31- otc unable to verify losartan 100 mg Tablet 100 mg PO QAM docusate sodium [Stool Softener] 100 mg capsule 100 mg PO BID Patient Comments: 10/31- otc unable to verify olanzapine 2.5 mg tablet 2.5 mg PO DIRECTED PRN (Reason: PER ONCOLOGY INSTRUCTIONS) polyethylene glycol 3350 [Miralax] 17 gram/dose Powder 17 g PO DAILY PRN (Reason: Constipation) Patient Comments: 10/31- otc unable to verify simvastatin 20 mg tablet 20 mg PO HS warfarin 5 mg tablet 5 mg PO QPM Rx Instructions: OR DIRECTED BY [facility] Referrals Referrals: Bindu Galvez DO [Primary Care Provider] - Discharge Problem: GIB (gastrointestinal bleeding) Qualifiers: GI bleed type/associated pathology: melena Qualified Code(s): K92.1 - Melena
[2024-10-31] MEDS: PANTOPRAZOLE BOLUS/DRIP IV STA (14:11)
[2024-10-31] MEDS: PANTOprazole 40 MG in DEXTROSE 5% MINI-B 100 ML IV SCH (14:11)
--- NOTE | 2024-10-31 16:22 | CT Scan Report ---
EXAMINATION: CT of the abdomen and pelvis performed without contrast. TECHNIQUE: Helical CT images from the lung bases through the symphysis pubis were obtained without contrast. Coronal and sagittal reformatted images were generated at a workstation for further assessment. Dose reduction techniques were achieved by using automatic exposure control and/or adjustment of mA and/or kV according to patient size and/or use of iterative reconstruction technique. COMPARISON: September 26, 2024 and March 05, 2024. HISTORY: Abdominal pain with rectal bleeding. Patient on blood thinners. FINDINGS: Quiller Hand film demonstrates likely CABG changes. Left inguinal surgical clips. Lung windows demonstrate portions of the exam to be limited secondary to respiratory motion. Linear band densities bilateral pulmonary bases likely representing subsegmental atelectasis and/or scarring. Difficulty appreciating significant interval change. Calcified granuloma right posterior costophrenic sulcus. 5 mm noncalcified nodule anterior lateral left lower lobe. This is incompletely evaluated on this exam. Similar foci on prior studies. Soft tissue windows demonstrate partially included likely aortic valve calcifications. Dependent densities within the gallbladder consistent with stones. No wall thickening or pericholecystic fluid. Hypodensities of the right liver dome unchanged when compared to prior studies. These are likely benign. Several exophytic foci of bilateral kidneys some of which demonstrate increased attenuation and likely elements of calcification. Further characterization limited on this noncontrast exam. Although difficult to reconcile these do not appear to be significantly changed when compared to prior study. Uncomplicated small anterior upper midline fat-containing hernia. Elements of increased attenuation large bowel contents. Suspect residual radiopaque medicinal debris. Prominent wall thickness of the rectum is noted. No discrete mass, obstruction or fluid collection. Mild perirectal fat stranding. Uncomplicated large bowel diverticulosis. Appendix is within normal limits. Nonspecific prominent retroperitoneal lymph nodes. Remaining solid and hollow organs of the abdomen and pelvis are within normal limits. No free air or free fluid. Multilevel degenerative changes of the lumbar spine with at least moderate spinal canal and moderate to marked foraminal stenoses. Bone windows demonstrate degenerative changes of the lumbar spine. No appreciated acute osseous process. IMPRESSION: 1. Incompletely evaluated 5 mm noncalcified left lower lobe nodule. Although this is favored to be benign this is indeterminant. Dedicated low-dose CT chest evaluation would be helpful. 2. Likely benign liver and renal cysts. These are limited on this noncontrast exam. 3. Prominent wall thickness of the rectum with mild perirectal fat stranding. No obstruction, mass or fluid collection. Inflammatory or infectious process not excluded. CT angiography or dedicated contrast-enhanced exam may be of benefit. 4. Uncomplicated cholelithiasis. Otherwise no findings to suggest source for patient's symptoms. Please see above for details. Electronically signed by Kenroy Oliveros 10-31-2024 4:21 PM
--- NOTE | 2024-10-31 16:51 | History & Physical Report ---
Date of Service October 31, 2024 Assessment & Plan (1) Hematochezia: Plan: Hematochezia, history of radiation proctitis Last seen for hematochezia radiation proctitis 07/2023. Treated with APC at that time. Adenomatous polyps noted, was recommended for follow-up colonoscopy in 5 years due to polyps Hemoglobin lower limit of normal range CTA/P with prominent wall thickness of rectum/perirectal fat stranding suggestive of inflammatory versus infectious process. Contrast limited by CKD INR is supratherapeutic at 3.9. Warfarin held Type and cross on file. Transfusion threshold either for symptom/hemodynamic instability, otherwise 7 Baseline chronic microcytic anemia. B12/folate and iron studies are pending PPI bolus and drip ordered in the ER. Low suspicion for upper GI bleed, suspect lower/proctitis. Will discontinue after completion unless evidence of upper GI bleed is seen. On exam has a very scant amount of bright red blood in the rectum. No obvious external tear. Given history of straining suspect possible internal fissure, but does have evidence of proctitis on CT. Does indorse some discomfort with bowel movements preceding this and evidence of possible proctitis on imaging we will cover with Unasyn. Stool studies pending. Continue Docusat, MiraLAX scheduled. Encourage hydration NPO - 2/2 CT w/ evidence of proctitis and bleeding w/ hx of radiation proctitis and no obvious fissure will consult GI. History of mechanical AVR Goal INR 2.53.5 INR 3.9 He is not hemodynamically unstable, and is at increased risk of versus mechanical valve. Will hold warfarin and allow it to downtrend. [facility] [place] CKD 34 Baseline creatinine recently around 1.72.4, previously at 1.4 Creatinine on admission 1.8 Trend daily, avoid nephrotoxins Hypertension Patient is near his recent baseline renal function, BP is normal. Will temporarily hold ARB while pending renal stability and hemodynamic stability. 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 Reportedly was undergoing chemoradiation, last treatment was 1 month ago and is pending PET scan before seeing if he needs further treatments. Last treatment was in early October Denies change in swallowing ability, choking, reflux. No respiratory symptoms No acute change in management DVT prophylaxis: Anticoagulated Disposition: PCU CODE STATUS: DNR/DNI. This is a change from prior CODE STATUS. 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 Has a history of lower GI bleeding 07/2023 on Coumadin, colonoscopy at that time was consistent with radiation proctitis and was treated with APC. Was recommended for 5-year colonoscopy follow-up due to adenomatous polyps noted at that time. He presents to the ER with abdominal discomfort and hematochezia. Hemoglobin baseline approximately 10.911.5, hemoglobin 9.9 on admission. He is not tachycardic or hypotensive. INR 3.9 CKD with recent creatinine range of around 1.782.4 creatinine on admission 1.8. BUN is with mild elevation proportional renal function, there is no acute elevation in creatinine to suggest upper GI bleed. CTA/P without contrast: 5 mm calcified left lower lung nodule, likely benign recommended for follow-up low-dose CT. Likely benign liver and renal cysts. Prominent wall thickness of the rectum and perirectal fat stranding suggestive of inflammatory versus infectious process. Uncomplicated cholelithiasis. Per Pt: Nakul is seen at the bedside. He reports in August he was diagnosed with throat cancer. Underwent chemo and radiation in August. Did have some bowel blockages due to those treatments and st ress. Was seen in the ER which resolved with an enema and felt well afterwards. Appetite gradually improved after returning home and was doing well until last Saturday (~5 days ago). He did not come to the ER and strained very hard to have a BM, and then had some bright red bleeding day afterwards. Saw his PCP, and was called back today and told to go to the ER but is not sure why. PCP is currently Dr. Mcmillan with [facility]. HE did have a bowel movement this morning. Aurelia this was normal, loose. He had a small amount of bright red blood in the toilet bowl. Some dark red and bright red blood, NO black BM, no tarry/coffee ground quality. got his flu shot last year and has some sinus congestion since, otherwise has not been sick. No shortness of breath. No chest pain. No lightheadedness, dizziness, or feeling like he will pass out. Denies history of GERD, stomach ulcers, or upper GI bleeds. Takes warfarin for a mechanical valve. last chemo tx with CCP last month. Also w/ radiation last month. Pending PET scan for response. Medical History: Reviewed Medications: Reviewed Surgical History: Reviewed Family history: Reviewed Allergies: Reviewed. NKDA. Social History: No tobacco, rare ETOH use ~1 beer a month. Code Status: DNR/DNI. This is a change from prior, pt confirms would not want rescuscitation in an arrest or breathing tube. "I'm 79, nearing the end of my l jenny. Don't bring me back". Surrogate DM would be Kaitlyn. Allergies Allergy/AdvReac Type Severity Reaction Status Date / Time No Known Allergies Allergy Verified 09/14/24 14:48 Home Medications Medication Instructions Recorded Confirmed Type cyanocobalamin (vitamin B-12) 1,000 mcg PO QAM ##0 11/10/14 10/31/24 History 1,000 mcg tablet multivitamin 1 tab PO QAM ##0 11/10/14 10/31/24 History calcium carbonate (Calcium 600) 600 mg PO QAM 02/03/20 10/31/24 History glucosamine 750 [id number] 1 tab PO BID 02/03/20 10/31/24 History no1 644 mg-C 30 mg-galindo 1 mg tablet (Osteo Bi-Flex Triple Strength) diphenhydramine 25 1 tab PO HS 07/15/21 10/31/24 History mg-acetaminophen 500 mg tablet (Tylenol PM Extra Strength) losartan 100 mg tablet 100 mg PO QAM 07/15/21 10/31/24 History amlodipine 2.5 mg tablet 2.5 mg PO HS 08/01/21 10/31/24 History cholecalciferol (vitamin D3) 125 125 mcg PO QAM 05/24/22 10/31/24 History mcg (5,000 unit) tablet (Vitamin D3) magnesium oxide 500 mg PO QAM 05/24/22 10/31/24 History zinc gluconate 50 mg tablet 50 mg PO QAM 05/24/22 10/31/24 History spironolactone 25 mg tablet 12.5 mg PO 3XWK 05/31/22 10/31/24 History docusate sodium 100 mg capsule 100 mg PO BID 08/14/22 10/31/24 History (Stool Softener) simvastatin 20 mg tablet 20 mg PO HS 03/05/24 10/31/24 History warfarin 5 mg tablet 5 mg PO QPM 03/05/24 10/31/24 History olanzapine 2.5 mg tablet 2.5 mg PO DIRECTED PRN PER 08/08/24 10/31/24 History ONCOLOGY INSTRUCTIONS polyethylene glycol 3350 17 17 g PO DAILY PRN Constipation 08/08/24 10/31/24 History gram/dose oral powder (Miralax) Past Med/Surg History Problem List (Updated 10/11/24 @ 00:08 by Virgilio Ngo) Malignant neoplasm of base of tongue (Chronic) Urethral stricture Radiation proctitis CKD (chronic kidney disease) stage 3, GFR 30-59 ml/min Radiation cystitis (Acute) Elevated prostate specific antigen (PSA) Greater trochanteric bursitis Effusion, right knee Effusion, left knee Hematuria (Acute) Hyperlipidemia Prostate cancer (Chronic 12/29/19) radiation HTN (hypertension), benign H/O aortic valve replacement 1993 [place] [facility] [place]--follows with Dr. 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 Sister Natural with unknown cause Other No family history of adverse response to anesthesia Social History Smoking Status: Never smoker Tobacco Type: Cigarettes Second Hand Exposure: No; Do You Dip or Chew Tobacco: No; Hx Alcohol Use: Yes Alcohol type: beer, wine and hard liquor Hx Substance Use: No Preferred Language: Tristanian Communication Ability: Effective Visual Impairment: No Limitations Hearing Ability: Normal Banking Manager Required: No Beliefs That Will Affect Care: Congregational Congregational Beliefs: JAYJAY CATHOLCI marital status: Current Living Situation: Spouse current occupational status: retired 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 NAD. Cooperative. HEENT: Atraumatic, normocephalic. Vision/hearing intact. PERLAA. Somewhat hoarse quality to speech. Pulm: CTAB A&P. -wheezes, -rales, -rhonchi. Symmetrical chest rise. No increased work of breathing. No respiratory distress. Cardiac: RRR, +systolic click. Radial pulses intact and symmetrical. Abdominal: Nontender, nondistended, soft. BS present. : Rectal exam with scant blood in the 7 o'clock position. No external tear, fissue. Ext; warm, dry Results & Data Results & Data Vital Signs (Past 12 Hours) Vital Signs Temp Pulse Pulse Resp BP BP Pulse Ox 10/31/24 16:10 62 10/31/24 15:24 72 20 135/77 97 10/31/24 14:18 57 L 22 96 10/31/24 13:30 60 22 97 10/31/24 13:30 127/68 10/31/24 13:30 127/68 10/31/24 13:30 127/68 10/31/24 13:30 127/68 10/31/24 13:20 133/55 L 10/31/24 13:20 133/55 L 10/31/24 13:20 133/55 L 10/31/24 13:06 70 11 L 99 10/31/24 13:03 78 18 121/65 97 10/31/24 13:00 69 28 H 98 10/31/24 13:00 121/65 10/31/24 13:00 121/65 10/31/24 12:30 74 21 97 10/31/24 12:30 114/60 10/31/24 12:07 74 10/31/24 12:06 71 19 99 10/31/24 12:00 124/64 10/31/24 12:00 124/64 10/31/24 11:54 60 20 97 10/31/24 11:42 73 15 97 10/31/24 11:14 97 10/31/24 10:11 36.1 C L 76 18 118/65 97 O2 Del Method 10/31/24 16:10 10/31/24 15:24 Room Air 10/31/24 14:18 10/31/24 13:30 10/31/24 13:30 10/31/24 13:30 10/31/24 13:30 10/31/24 13:30 10/31/24 13:20 10/31/24 13:20 10/31/24 13:20 10/31/24 13:06 10/31/24 13:03 10/31/24 13:00 10/31/24 13:00 10/31/24 13:00 10/31/24 12:30 10/31/24 12:30 10/31/24 12:07 10/31/24 12:06 10/31/24 12:00 10/31/24 12:00 10/31/24 11:54 10/31/24 11:42 10/31/24 11:14 Room Air 10/31/24 10:11 Room Air PG Care Time/CCT Total # of Minutes Spent Total Time Spent with Patient: Total time spent is greater than 50% in coordination of care (as documented) at patient's floor/unit and/or counseling patient: Coding Level of Care Code 92763 INT INP/OBS CARE 3/75MIN Diagnoses Hematochezia K92.1 Malignant neoplasm of base of tongue C01 Radiation proctitis K62.7 CKD (chronic kidney disease) stage 3, GFR 30-59 ml/min N18.30 Hyperlipidemia E78.5 HTN (hypertension), benign I10 H/O aortic valve replacement Z95.2
[2024-10-31] MEDS ORDERED: OLANZAPINE 2.5 MG TAB PO PRN (21:38)
[2024-10-31] MEDS ORDERED: SODIUM CHLORIDE 0.9% 100 ML IV PRN (21:38)
[2024-10-31 21:58] LABS: Hematocrit (blood only) 28.2 % (42.0-52.0); Hemoglobin 9.2 g/dl (14.0-18.0)
[2024-10-31] MEDS: AMPICILLIN/SULBACTAM SOD 3,000 MG/100 ML BAG IV SCH (22:09)
[2024-10-31 22:13] LABS: Iron 75.0 mcg/dl (35-175); Total Iron Binding Cap Calc 276.0 mcg/dl (250-450); Transferrin 197.0 mg/dl (200-360); Transferrin (FE) Percent Satur 27.0 % (20-50)
[2024-10-31] MEDS: DOCUSATE SODIUM 100 MG CAP PO SCH (22:14)
[2024-10-31] MEDS: SIMVASTATIN 20 MG TAB PO SCH (22:14)
[2024-10-31] MEDS: POLYETHYLENE (MIRALAX) 17 GM PACK PO SCH (22:15)
[2024-10-31 22:33] LABS: Ferritin 187.6 ng/ml (8-388)
[2024-10-31 22:39] LABS: Folate (Folic Acid),Ser orPlas > 22.30 ng/ml (>5.38)
[2024-10-31 22:40] LABS: Vitamin B12 660 pg/ml (180-914)
[2024-10-31] MEDS: LACTATED RINGER'S 1,000 ML IV SCH (23:01)
[2024-11-01 03:36] VITALS: TEMP 98.1
[2024-11-01 07:09] LABS: Hematocrit (blood only) 29.0 % (42.0-52.0); Hemoglobin 9.6 g/dl (14.0-18.0); Immature Granulocytes # (auto) 0.04 K/uL (0.01-0.20); Immature Granulocytes % (auto) 1.3 %; Mean Corpuscular Hemoglobin 33.6 pg (25.0-34.0); Mean Corpuscular Volume 101.4 fL (80.0-100.0); Platelet Count 163 K/uL (130-400); RDW Standard Deviation 59.0 fL (36.4-46.3); Red Blood Count 2.86 M/uL (4.70-6.10); White Blood Count 3.14 K/ul (4.8-10.8)
[2024-11-01 07:29] LABS: Anion Gap 6.0 (3-11); Blood Urea Nitrogen 25.0 mg/dl (6-23); Calcium 8.6 mg/dl (8.6-10.3); Carbon Dioxide 25.0 mmol/L (21-32); Chloride 109.0 mmol/L (98-107); Creatinine Clr Calc Pharmacy 34.3 ml/min; Glucose 88.0 mg/dl (70-99(Fasting)); Potassium 3.9 mmol/L (3.5-5.1); Sodium 140.0 mmol/L (136-145)
[2024-11-01 07:47] LABS: INR 3.6 (0.9-1.1); Prothrombin Time 34.6 Seconds (9.0-12.0)
[2024-11-01 08:08] VITALS: RESP 18
--- NOTE | 2024-11-01 09:50 | Gastrointestinal Consultation ---
Date of Consultation November 01, 2024 Assessment & Plan (1) Hematochezia: Pleasant man with hematochezia that has stopped. 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 We know he has radiation proctitis but that doesn't usually show up on CT scan. The good thing is he has had colonoscopy last year so we know nothing of significance is going on. He is on warfarin which always makes colonoscopy more of a process. Since he has stopped bleeding he could go home (to get rest) and arrange outpatient colonoscopy through his GI docs. If he stays here they can decide if they want to repeat colonoscopy while in the hospital. He would prefer to do this as an outpatient and I have no problem with him going home. History of Present Illness Reason for Consultation: hematochezia Attending Physician: Ajay Marie MD History of Present Illness 79 year old man s/p XRT for prostate cancer with resultant radiation proctitis. He has been diagnosed with cancer of the base of the tongue so he has been going through radiation and chemo for that recently. The chemo led him to have several "bowel blockages". Saturday week before last he had one that he managed at home and he thinks he irritated something. From that day until admission he has had bright red blood with bowel movements. He says the blood is mainly in the water. He was admitted last night and this morning he had a bowel movement with no blood. Currently he feels well except he is tired from little sleep last night. He had a colonoscopy in July 2023 that showed a few small polyps and radiation proctitis that was treated with APC. He is on warfarin for aortic valve replacement Allergies Allergy/AdvReac Type Severity Reaction Status Date / Time No Known Allergies Allergy Verified 09/14/24 14:48 Home Medications Medication Instructions Recorded Confirmed Type cyanocobalamin (vitamin B-12) 1,000 mcg PO QAM ##0 11/10/14 10/31/24 History 1,000 mcg tablet multivitamin 1 tab PO QAM ##0 11/10/14 10/31/24 History calcium carbonate (Calcium 600) 600 mg PO QAM 02/03/20 10/31/24 History glucosamine 750 [id number] 1 tab PO BID 02/03/20 10/31/24 History no1 644 mg-C 30 mg-galindo 1 mg tablet (Osteo Bi-Flex Triple Strength) diphenhydramine 25 1 tab PO HS 07/15/21 10/31/24 History mg-acetaminophen 500 mg tablet (Tylenol PM Extra Strength) losartan 100 mg tablet 100 mg PO QAM 07/15/21 10/31/24 History amlodipine 2.5 mg tablet 2.5 mg PO HS 08/01/21 10/31/24 History cholecalciferol (vitamin D3) 125 125 mcg PO QAM 05/24/22 10/31/24 History mcg (5,000 unit) tablet (Vitamin D3) magnesium oxide 500 mg PO QAM 05/24/22 10/31/24 History zinc gluconate 50 mg tablet 50 mg PO QAM 05/24/22 10/31/24 History spironolactone 25 mg tablet 12.5 mg PO 3XWK 05/31/22 10/31/24 History docusate sodium 100 mg capsule 100 mg PO BID 08/14/22 10/31/24 History (Stool Softener) simvastatin 20 mg tablet 20 mg PO HS 03/05/24 10/31/24 History warfarin 5 mg tablet 5 mg PO QPM 03/05/24 10/31/24 History olanzapine 2.5 mg tablet 2.5 mg PO DIRECTED PRN PER 08/08/24 10/31/24 History ONCOLOGY INSTRUCTIONS polyethylene glycol 3350 17 17 g PO DAILY PRN Constipation 08/08/24 10/31/24 History gram/dose oral powder (Miralax) Patient History Medical History Hematochezia First degree AV block History of COVID-19 02/2022--mild symptoms, no symptoms now Malfunction of Cruz catheter Chronic anticoagulation warfarin daily due to AVR Skin cancer Basal cell per pt Benign prostatic hyperplasia with urinary obstruction and other lower urinary tract symptoms 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 Required: No Beliefs That Will Affect Care: None marital status: Current Living Situation: Spouse current occupational status: retired current occupation: [employer] Other Information That Helps Us Care for You: No Feels Safe at Home: Yes Safety Concerns: Feels Safe At This Time Diet: other caffeine: Yes (2 cups/day) during the past year weight has: remained stable Assistive Devices: None Review of Systems Review of Systems: All systems reviewed & are unremarkable except as noted in HPI & below Physical Exam Physical Exam: Pleasant man in no distress Constitutional: WD/WN, vitals as above Neck: trachea midline, no thyromegaly Respiratory: normal respiratory effort, lungs clear to auscultation Cardiovascular: RRR, no murmur, no edema Gastrointestinal (Abdomen): normal bowel sounds, soft, nontender, no hepatosplenomegaly Results & Data Vital Signs (Past 12 Hours) Vital Signs Temp Pulse Pulse Pulse Resp BP BP 11/01/24 08:07 36.7 C 66 18 117/63 11/01/24 03:35 36.7 C 73 16 120/63 11/01/24 01:24 66 11/01/24 00:56 36.6 C 67 17 139/78 11/01/24 00:00 61 18 127/67 10/31/24 23:50 75 10/31/24 23:03 62 17 10/31/24 23:00 119/62 10/31/24 23:00 10/31/24 22:57 69 16 10/31/24 22:30 68 17 10/31/24 22:24 19 10/31/24 22:00 128/61 10/31/24 22:00 128/61 09/13/25 22:00 128/61 10/31/24 22:00 128/61 10/31/24 22:00 63 18 10/31/24 21:57 67 17 Pulse Ox O2 Del Method 11/01/24 08:07 95 Room Air 11/01/24 03:35 97 Room Air 11/01/24 01:24 11/01/24 00:56 95 Room Air 11/01/24 00:00 95 Room Air 10/31/24 23:50 10/31/24 23:03 94 10/31/24 23:00 10/31/24 23:00 Room Air 10/31/24 22:57 94 10/31/24 22:30 94 10/31/24 22:24 94 Room Air 10/31/24 22:00 10/31/24 22:00 10/31/24 22:00 10/31/24 22:00 10/31/24 22:00 95 10/31/24 21:57 96 Laboratory Results 11/01/24 10/31/24 10/31/24 Range/Units 06:33 21:46 11:10 WBC 3.14 L 4.18 L (4.8-10.8) K/ul RBC 2.86 L 3.02 L (4.70-6.10) M/uL Hgb 9.6 L 9.2 L 9.9 L (14.0-18.0) g/dl Hct 29.0 L 28.2 L 30.3 L (42.0-52.0) % MCV 101.4 H 100.3 H (80.0-100.0) fL MCH 33.6 32.8 (25.0-34.0) pg MCHC 33.1 32.7 (32.0-36.0) g/dL RDW Std Deviation 59.0 H 59.9 H (36.4-46.3) fL RDW Coeff of Skye 15.9 H 16.1 H (11.5-14.5) % Plt Count 163 173 (130-400) K/uL MPV 9.0 L 9.0 L (9.4-12.4) fL Immature Gran % (Auto) 1.3 0.7 % Neut % (Auto) 64.4 76.8 % Lymph % (Auto) 11.1 8.4 % [place] % (Auto) 16.2 11.7 % Eos % (Auto) 6.4 1.7 % Baso % (Auto) 0.6 0.7 % Neut # (Auto) 2.02 3.21 (1.40-6.50) K/uL Lymph # (Auto) 0.35 L 0.35 L (1.20-3.40) K/uL [place] # (Auto) 0.51 0.49 (0.11-0.59) K/uL Eos # (Auto) 0.20 0.07 (0.00-0.50) K/uL Baso # (Auto) 0.02 0.03 (0.00-0.20) K/uL Immature Gran # (Auto) 0.04 0.03 (0.01-0.20) K/uL PT 34.6 H 37.6 H (9.0-12.0) Seconds INR 3.6 H 3.9 H (0.9-1.1) APTT 40 H (21-31) Seconds PTT Ratio 1.5 Sodium 140 140 (136-145) mmol/L Potassium 3.9 4.5 (3.5-5.1) mmol/L Chloride 109 H 109 H (98-107) mmol/L Carbon Dioxide 25 27 (21-32) mmol/L Anion Gap 6 4 (3-11) BUN 25 H 29 H (6-23) mg/dl Creatinine 1.69 H 1.80 H (0.6-1.4) mg/dl Est Cr Clr Drug Dosing 34.3 32.4 ml/min eGFR 40.28 37.35 BUN/Creatinine Ratio 14.8 16.1 (10-20) Glucose 88 113 H (70-99(Fasting)) mg/dl Calcium 8.6 8.9 (8.6-10.3) mg/dl Iron 75 (35-175) mcg/dl TIBC 276 (250-450) mcg/dl Transferrin 197 L (200-360) mg/dl Transferrin % Sat 27 (20-50) % Ferritin 187.6 (8-388) ng/ml Total Bilirubin 0.6 (0.2-1.0) mg/dl Direct Bilirubin 0.1 (0-0.2) mg/dl AST 19 (13-39) U/L ALT 10 (7-52) U/L Alkaline Phosphatase 40 (34-104) U/L Total Protein 6.2 (6.0-8.3) gm/dl Albumin 3.8 (3.4-5.0) gm/dl Lipase 38 (11-82) U/L Vitamin B12 660 (180-914) pg/ml Folate > 22.30 (>5.38) ng/ml Blood Type O Positive Antibody Screen NEGATIVE Crossmatch See Detail Diagnostic Findings Abdomen/Pelvis CT 10/31/24 11:49 EXAMINATION: CT of the abdomen and pelvis performed without contrast. TECHNIQUE: Helical CT images from the lung bases through the symphysis pubis were obtained without contrast. Coronal and sagittal reformatted images were generated at a workstation for further assessment. Dose reduction techniques were achieved by using automatic exposure control and/or adjustment of mA and/or kV according to patient size and/or use of iterative reconstruction technique. COMPARISON: September 26, 2024 and March 05, 2024. HISTORY: Abdominal pain with rectal bleeding. Patient on blood thinners. FINDINGS: Research Aide film demonstrates likely CABG changes. Left inguinal surgical clips. Lung windows demonstrate portions of the exam to be limited secondary to respiratory motion. Linear band densities bilateral pulmonary bases likely representing subsegmental atelectasis and/or scarring. Difficulty appreciating significant interval change. Calcified granuloma right posterior costophrenic sulcus. 5 mm noncalcified nodule anterior lateral left lower lobe. This is incompletely evaluated on this exam. Similar foci on prior studies. Soft tissue windows demonstrate partially included likely aortic valve calcifications. Dependent densities within the gallbladder consistent with stones. No wall thickening or pericholecystic fluid. Hypodensities of the right liver dome unchanged when compared to prior studies. These are likely benign. Several exophytic foci of bilateral kidneys some of which demonstrate increased attenuation and likely elements of calcification. Further characterization limited on this noncontrast exam. Although difficult to reconcile these do not appear to be significantly changed when compared to prior study. Uncomplicated small anterior upper midline fat-containing hernia. Elements of increased attenuation large bowel contents. Suspect residual radiopaque medicinal debris. Prominent wall thickness of the rectum is noted. No discrete mass, obstruction or fluid collection. Mild perirectal fat stranding. Uncomplicated large bowel diverticulosis. Appendix is within normal limits. Nonspecific prominent retroperitoneal lymph nodes. Remaining solid and hollow organs of the abdomen and pelvis are within normal limits. No free air or free fluid. Multilevel degenerative changes of the lumbar spine with at least moderate spinal canal and moderate to marked foraminal stenoses. Bone windows demonstrate degenerative changes of the lumbar spine. No appreciated acute osseous process. IMPRESSION: 1. Incompletely evaluated 5 mm noncalcified left lower lobe nodule. Although this is favored to be benign this is indeterminant. Dedicated low-dose CT chest evaluation would be helpful. 2. Likely benign liver and renal cysts. These are limited on this noncontrast exam. 3. Prominent wall thickness of the rectum with mild perirectal fat stranding. No obstruction, mass or fluid collection. Inflammatory or infectious process not excluded. CT angiography or dedicated contrast-enhanced exam may be of benefit. 4. Uncomplicated cholelithiasis. Otherwise no findings to suggest source for patient's symptoms. Please see above for details. Electronically signed by Kenroy Oliveros 10-31-2024 4:21 PM
[2024-11-01] MEDS: MULTIVITAMIN TAB PO SCH (10:01)
[2024-11-01] MEDS: CHOLECALCIFEROL 125 MCG (5,000 UNITS) TAB PO SCH (10:02)
[2024-11-01] MEDS: MAGNESIUM OXIDE 400 MG TAB PO SCH (10:02)
[2024-11-01] MEDS: CALCIUM CARBONATE 1250MG TAB PO SCH (10:02)
[2024-11-01] MEDS: ZINC SULFATE 220 MG CAPSULE PO SCH (10:02)
[2024-11-01] MEDS: CYANOCOBALAMIN (B-12) 500 MCG TABLET PO SCH (10:02)
--- NOTE | 2024-11-01 11:11 | Discharge Summary ---
Discharge Summary Date of Service November 01, 2024 Principal Dx & Hospital Course #1 = Principal Diagnosis (1) Malignant neoplasm of base of tongue: (2) Radiation proctitis: (3) CKD (chronic kidney disease) stage 3, GFR 30-59 ml/min: (4) Hyperlipidemia: (5) HTN (hypertension), benign: (6) H/O aortic valve replacement: (7) Hematochezia: Hematochezia, mild stercoral proctitis Last seen for hematochezia radiation proctitis 07/2023. Treated with APC at that time. Adenomatous polyps noted, was recommended for follow-up colonoscopy in 5 years due to polyps Hemoglobin lower limit of normal range CTA/P with prominent wall thickness of rectum/perirectal fat stranding suggestive of inflammatory versus infectious process. Contrast limited by CKD INR is supratherapeutic at 3.9. Warfarin held Type and cross on file. Transfusion threshold either for symptom/hemodynamic instability, otherwise 7 Baseline chronic microcytic anemia. B12/folate and iron studies are pending PPI bolus and drip ordered in the ER. Low suspicion for upper GI bleed, suspect lower/proctitis. Will discontinue after completion unless evidence of upper GI bleed is seen. On exam has a very scant amount of bright red blood in the rectum. No obvious external tear. Given history of straining suspect possible internal fissure, but does have evidence of proctitis on CT. Does indorse some discomfort with bowel movements preceding this and evidence of possible proctitis on imaging was empirically covered with Unasyn on admit - GI consulted. Possible stercoral protitis from chemo. Bleeding has resolved. Hgb uptrended. OK for d/c and followup with pts outpt GI team for colonoscopy. Pt prefers to follow with [facility] - Continue Miralax daily - No infectious symptoms or fever History of mechanical AVR Goal INR 2.53.5 INR 3.9 He is not hemodynamically unstable, and is at increased risk of versus mechanical valve. - Warfarin adjusted to 5mg daily. 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 Reportedly was undergoing chemoradiation, last treatment was 1 month ago and is pending PET scan before seeing if he needs further treatments. Last treatment was in early October Denies change in swallowing ability, choking, reflux. No respiratory symptoms No acute change in management DVT prophylaxis: Anticoagulated Disposition: PCU CODE STATUS: DNR/DNI. This is a change from prior CODE STATUS. 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 Has a history of lower GI bleeding 07/2023 on Coumadin, colonoscopy at that time was consistent with radiation proctitis and was treated with APC. Was recommended for 5-year colonoscopy follow-up due to adenomatous polyps noted at that time. He presents to the ER with abdominal discomfort and hematochezia. Hemoglobin baseline approximately 10.911.5, hemoglobin 9.9 on admission. He is not tach ycardic or hypotensive. INR 3.9 CKD with recent creatinine range of around 1.782.4 creatinine on admission 1.8. BUN is with mild elevation proportional renal function, there is no acute elevation in creatinine to suggest upper GI bleed. CTA/P without contrast: 5 mm calcified left lower lung nodule, likely benign recommended for follow-up low-dose CT. Likely benign liver and renal cysts. Prominent wall thickness of the rectum and perirectal fat stranding suggestive of inflammatory versus infectious process. Uncomplicated cholelithiasis. Per Pt: Nakul is seen at the bedside. He reports in August he was diagnosed with throat cancer. Underwent chemo and radiation in August. Did have some bowel blockages due to those treatments and stress. Was seen in the ER which resolved with an enema and felt well afterwards. Appetite gradually improved after returning home and was doing well until last Saturday (~5 days ago). He did not come to the ER and strained very hard to have a BM, and then had some bright red bleeding afterwards. Saw his PCP, and was called back today and told to go to the ER but is not sure why. PCP is currently Dr. Mcmillan with [facility]. HE did have a bowel movement this morning. [place] this was normal, loose. He had a small amount of bright red blood in the toilet bowl. Some dark red and bright red blood, NO black BM, no tarry/coffee ground quality. got his flu shot last year and has some sinus congestion since, otherwise has not been sick. No shortness of breath. No chest pain. No lightheadedness, dizziness, or feeling like he will pass out. Denies history of GERD, stomach ulcers, or upper GI bleeds. Takes warfarin for a mechanical valve. last chemo tx with CCP last month. Also w/ radiation last month. Pending PET scan for response. Medical History: Reviewed Medications: Reviewed Surgical History: Reviewed Family history: Reviewed Allergies: Reviewed. NKDA. Social History: No tobacco, rare ETOH use ~1 beer a month. Code Status: DNR/DNI. This is a change from prior, pt confirms would not want rescuscitation in an arrest or breathing tube. "I'm 79, nearing the end of my life. Don't bring me back". Surrogate DM would be Kaitlyn. Discharge Exam General: A&Ox3. NAD. Cooperative. HEENT: Atraumatic, normocephalic. Vision/hearing intact. PERLAA. Somewhat hoarse quality to speech. Pulm: CTAB A&P. -wheezes, -rales, -rhonchi. Symmetrical chest rise. No increased work of breathing. No respiratory distress. Cardiac: RRR, +systolic click. Radial pulses intact and symmetrical. Abdominal: Nontender, nondistended, soft. BS present. Ext; warm, dry Discharge Plan Discharge Items Patient Disposition: Home - Self-Care Reason For Visit: HEMATOCHEZIA, PROCTITITS Discharge Diagnosis: Hematochezia, Proctitis, ?stercoral proctitis Condition on Discharge: Fair Activity: Resume your previous activity Non-emergency contact: Primary Care Provider and Barrel Cooper Call non-emergency contact if: you have any medication questions, your symptoms worsen and your pain is not controlled Follow-up/Referrals: Evonne Barnett DO [Physician] - Bindu Galvez DO [Primary Care Provider] - Diet: Regular Addtl Attending Provider Instructions: You were seen in the hospital for bright red bleeding per rectum. You bleeding stopped during admission. Your blood levels were going up at time of discharge, you did not require a blood transfusion. You were seen by GI during admission. You were suspected to have some stercoral proctitis and constipation leading to hematochezia. You preferred to be discharged with outpatient followup at [facility] which was felt to be reasonable. You had no ongoing bleeding and your vitals were normal. You did not have any abdominal pain or leukocytosis suggestive of infection. It is recommended to take Miralax once every day in the morning, and an additional cap at night as needed to maintain soft stools. Your INR was slightly high during admission, your warfarin was held. You also have had slightly supertherapeutic levels lately. Your warfarin dose has been adjusted. Please take 5mg daily starting 11/02/2024. Please contact the coagulation clinic for review of your levels, they may wish to make additional adjustments. If you develop any new or worsening symptoms including fever, chills, sweats, chest pain, chest pressure, difficulty breathing, uncontrolled nausea/vomiting, rash, wheezing, passing out or nearly passing out, bleeding, black/bloody bowel movements, or other new or concerning symptoms please call your primary care physician, or call 911 for re-evaluation in the emergency department if you are very concerned. Pending Studies at Discharge: No Stand-Alone Forms: My [facility] [employer], Smoking Cessation Medications and DC Order Prescriptions: New polyethylene glycol 3350 [Miralax] 17 gram/dose powder 17 g PO DAILY Qty: 119 0RF Continued calcium carbonate [Calcium 600] 600 mg calcium (1,500 mg) tablet 600 mg PO QAM Patient Comments: 10/31- otc unable to verify Osteo Bi-Flex Triple Strength 750 mg-644 mg- 30 mg-1 mg tablet 1 tab PO BID Patient Comments: 10/31- otc unable to verify Rx Instructions: give with meal/snack multivitamin Tablet 1 tab PO QAM Qty: 0 Patient Comments: 10/31- otc unable to verify cyanocobalamin (vitamin B-12) 1,000 mcg Tablet 1,000 mcg PO QAM Qty: 0 Patient Comments: 10/31- otc unable to verify magnesium oxide 500 mg Tablet 500 mg PO QAM Patient Comments: 10/31- otc unable to verify zinc gluconate 50 mg Tablet 50 mg PO QAM Patient Comments: 10/31- otc unable to verify cholecalciferol (vitamin D3) [Vitamin D3] 125 mcg (5,000 unit) Tablet 125 mcg PO QAM Patient Comments: 10/31- otc unable to verify spironolactone 25 mg tablet 12.5 mg PO 3XWK Patient Comments: takes in the am Rx Instructions: Takes on Sat amlodipine 2.5 mg Tablet 2.5 mg PO HS diphenhydramine-acetaminophen [Tylenol PM Extra Strength] 25-500 mg Tablet 1 tab PO HS Patient Comments: 10/31- otc unable to verify losartan 100 mg Tablet 100 mg PO QAM docusate sodium [Stool Softener] 100 mg capsule 100 mg PO BID Patient Comments: 10/31- otc unable to verify olanzapine 2.5 mg tablet 2.5 mg PO DIRECTED PRN (Reason: PER ONCOLOGY INSTRUCTIONS) polyethylene glycol 3350 [Miralax] 17 gram/dose Powder 17 g PO DAILY PRN (Reason: Constipation) Patient Comments: 10/31- otc unable to verify simvastatin 20 mg tablet 20 mg PO HS Changed warfarin 5 mg tablet See Rx Instructions .ROUTE .COMPLEX Qty: 0 0RF Rx Instructions: OR DIRECTED BY ANTICOAGULATION CLINIC Discharge Orders: Discharge Order (Routine); Ordered 11/01/24 Ordered By: Ajay Marie Admission Data Admit Date/Time: 10/31/24 17:52 Attending Provider: Ajay Marie Admit Provider: Ajay Marie Primary Care Provider: Bindu Galvez Other Providers: Ajay Marie; Isabella Reilly Jr Hospital Stay Data Consultations 10/31/24 16:26 ED Decision to Admit Stat 10/31/24 21:38 Consult Gastroenterology Routine Diagnostic Imagining Performed 10/31/24 11:49 CT abd pelvis wo con Stat Discharge Instructions Given to Patient (Per Discharging Provider) You were seen in the hospital for bright red bleeding per rectum. You bleeding stopped during admission. Your blood levels were going up at time of discharge, you did not require a blood transfusion. You were seen by GI during admission. You were suspected to have some stercoral proctitis and constipation leading to hematochezia. You preferred to be discharged with outpatient followup at [facility] which was felt to be reasonable. You had no ongoing bleeding and your vitals were normal. You did not have any abdominal pain or leukocytosis suggestive of infection. It is recommended to take Miralax once every day in the morning, and an additional cap at night as needed to maintain soft stools. Your INR was slightly high during admission, your warfarin was held. You also have had slightly supertherapeutic levels lately. Your warfarin dose has been adjusted. Please take 5mg daily starting 11/02/2024. Please contact the coagulation clinic for review of your levels, they may wish to make additional adjustments. If you develop any new or worsening symptoms including fever, chills, sweats, chest pain, chest pressure, difficulty breathing, uncontrolled nausea/vomiting, rash, wheezing, passing out or nearly passing out, bleeding, black/bloody bowel movements, or other new or concerning symptoms please call your primary care physician, or call 911 for re-evaluation in the emergency department if you are very concerned. Total Time Total Time Spent Total Time Spent (In Minutes): 35 Coding Level of Care Code 01112 INP/OBS DISCH >30 MIN Diagnoses Malignant neoplasm of base of tongue C01 Radiation proctitis K62.7 CKD (chronic kidney disease) stage 3, GFR 30-59 ml/min N18.30 Hyperlipidemia E78.5 HTN (hypertension), benign I10 H/O aortic valve replacement Z95.2 Hematochezia K92.1
[2024-11-01 11:27] VITALS: BP 150/72; O2SAT 93
--- NOTE | 2024-11-01 11:46 | Communication Note ---
Date of Service: November 01, 2024 By CMS guidelines, a determination that the admission or continued stay is not medically necessary has been made by a member of the UR committee and a physician for this hospital stay, therefore a Code 44 will be completed and the Inpatient admission will be changed to outpatient.
[2024-11-01 12:38] VITALS: PULSE 67
[2024-11-02] MEDS ORDERED: SPIRONOLACTONE 12.5 MG TAB PO SCH (09:00)
== END 2024-11-01 13:12 | disposition home or self-care (01) | DRG 394 ==
LOC: ED 10:08 → EDINP 17:52 → 2N 21:38